=== PATIENT | female | born 1960 | race Hispanic/Latino ===

== ENCOUNTER 2019-03-09 11:32 | Inpatient (IN) | payer SELFPAY ==
[2019-03-09 12:14] LABS: #Eosinphils 0.2 thou/uL (0.0-0.7); #Lymphocytes 1.6 thou/uL (1.20-3.40); #Monocytes 0.4 thou/uL (0.11-0.59); #Neutrophils 6.5 thou/uL (1.40-6.50); %Basophils 0.4 % (0.0-1.0); %Eosinophils 2.1 % (0.0-10.0); %Lymphocytes 18.1 % (21.0-51.0); %Monocytes 4.7 % (0.0-10.0); %Neutrophils 74.8 % (42.0-75.0); Hemoglobin 10.8 g/dL (12.0-16.0); Mean Corpuscular HGB CONC 33.2 g/dL (32.0-36.0); Mean Corpuscular Volume 96.2 fL (78.0-98.0); Mean Platelet Volume 8.9 fL (7.4-10.4); Platelet Count 150 thou/uL (130-400); RBC Distribution Width 13.1 % (11.5-14.5); Red Blood Cell (RBC) Count 3.37 mill/uL (4.20-5.40); White Blood Cell (WBC) Count 8.7 thou/uL (4.8-10.8)
--- NOTE | 2019-03-09 12:17 | RAD ---
XR Chest 1 View Portable History: Chest pain Comparison: Radiograph June 24, 2018 Findings: Heart size is similar. Dialysis catheter tip in the cavoatrial junction. Likely small effus ions. Low-grade pulmonary venous congestion. No acute osseous abnormality. Impression: Pulmonary venous congestion and likely small effusions suggesting volume overload.
[2019-03-09 12:42] LABS: ALT (SGPT) 11 U/L (8-55); AST (SGOT) 13 U/L (5-34); Albumin 4.1 g/dL (3.5-5.0); Alkaline Phosphatase 177 U/L (40-150); Anion Gap 16 mmol/L (10-20); BUN (Urea Nitrogen) 62 mg/dL (9.8-20.1); Bilirubin, Total 0.3 mg/dL (0.2-1.2); CK (CPK) 187 U/L (29-168); Calc. Creatinine Clearance 0 mL/min (70-130); Carbon Dioxide 15 mmol/L (22-29); Chloride 117 mmol/L (98-107); Estimated GFR-MDRD 15; Globulin 2.9 g/dL (2.4-3.5); Glucose 85 mg/dL (70-105); Lipase 45 U/L (8-78); Potassium 5.7 mmol/L (3.5-5.1); Sodium 142 mmol/L (136-145)
[2019-03-09] MEDS ORDERED: Aspirin Chewable 81 MG TAB ONE (12:50)
[2019-03-09] MEDS ORDERED: hydrALAZINE 20 MG/ML VIAL SLOW IVP PRN (13:58)
[2019-03-09] MEDS ORDERED: Diabetic Tussin 200 MG/10 ML UDCUP PO PRN (13:58)
[2019-03-09] MEDS ORDERED: Bisacodyl 5 MG TAB PO PRN ×2 (13:58)
[2019-03-09] MEDS ORDERED: Benzonatate 100 MG CAP PO PRN (13:58)
[2019-03-09] MEDS ORDERED: Ondansetron PF 4 MG/2 ML Vial IVP PRN ×2 (13:58)
[2019-03-09] MEDS ORDERED: Calcium Carbonate 500 MG ChewTAB PO PRN ×2 (13:58)
[2019-03-09] MEDS ORDERED: Acetaminophen 325 MG TAB PO PRN (13:58)
[2019-03-09] MEDS ORDERED: cloNIDine 0.1 MG TAB PO PRN (13:58)
[2019-03-09] MEDS ORDERED: Senokot S 8.6-50 MG TAB PO PRN ×2 (13:58)
[2019-03-09] MEDS ORDERED: Sodium Chloride 0.65% Nasal 44 ML BOT EA NARE PRN (13:58)
[2019-03-09] MEDS ORDERED: Nitroglycerin 0.4 MG TAB (25 Tab Bottle) SL PRN (13:58)
[2019-03-09] MEDS ORDERED: Furosemide 100 MG/10 ML VIAL SLOW IVP SCH (16:15)
--- NOTE | 2019-03-09 17:01 | CON ---
DATE OF CONSULTATION: HISTORY OF PRESENT ILLNESS: Ms. Salazar is a 59-year-old female , who was admitted for chest pain. During the initial workup, she was noted to be having chronic renal failure with a cuffed hemodialysis catheter still in place. She has not received any dialysis except more than a year ago when she was admitted in [place] and had an acute dialysis for two treatments. The catheter has never been removed. We are now being consulted for her chronic renal failure. REVIEW OF SYSTEMS: Positive for chest pain. Positive for mild shortness of breath. No nausea. No vomiting. Appetite and energy level are fair. No syncopal episode. No productive cough. No fever or chills. No headache. No diplopia. No sore throat. No abdominal pain. No gross hematuria. No dysuria. No urinary frequency. MEDICATIONS: The patient is currently on acetaminophen 650 mg q.4 p.r.n., benzonatate 100 mg tab q.6 p.r.n., clonidine 0.1 mg q.4 p.r.n., Dulcolax 10 mg daily p.r.n., famotidine 20 mg tab q.p.m., heparin 5000 units subcu b.i.d., p.r.n. hydralazine, and Kayexalate 30 g x1 dose. PAST MEDICAL HISTORY: 1. Status post acute kidney injury-superimposed ATN? 2. Chronic renal failure, most likely from a presumptive diabetic nephropathy. 3. Status post salmonella infection? Hypertension, diabetes mellitus, no medications noted, rheumatoid arthritis, COPD. PAST SURGICAL HISTORY: Status post cuffed hemodialysis catheter placement, status post transection. ALLERGIES: CODEINE AND SEA FOOD. TRAUMA: None. IMMUNIZATION: Not up to date. HOSPITALIZATIONS: Please see past medical history. SOCIAL HISTORY: The patient is , 2 children. 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 No alcohol. 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 No IV drug abuse. Education, high school. No blood transfusion. FAMILY HISTORY: Positive family history of ESRD, one child on dialysis. PHYSICAL EXAMINATION: VITAL SIGNS: Blood pressure is 140/70, heart rate 70. GENERAL: Noted to be awake, alert, comfortable, obese, not in distress. SKIN: Adequate turgor. HEENT: She has pinkish conjunctivae. Anicteric sclerae. NECK: No neck mass. No carotid bruits. No JVD. CHEST: No deformities. LUNGS: Clear breath sounds. HEART: Normal sinus rhythm. No murmur. No gallops. No rubs. ABDOMEN: Globular, soft, nontender. No masses. EXTREMITIES: No edema. No deformities. She has a right IJ dialysis catheter. NEUROLOGIC: Moving all extremities. No tremors. No asterixis. No ataxia. Oriented to 3 spheres. LABORATORIES: On March 09, 2019, white count 8.7, hemoglobin 10.8. Sodium 142, potassium 5.7, chloride 117, carbon dioxide 15, BUN 62, creatinine 3.12, GFR 15 mL/minute. AST 13, ALT 11. CK is 187, albumin 4.1. Troponin I 0.017. Check x-ray shows increased lung markings. ASSESSMENT: 1. Chronic renal failure-GFR is noted currently at 15 mL/minute. Creatinine is noted 3.12. This is actually better than last year, June 24, 2018, which was 3.24. With her longstanding history of diabetes mellitus, consider the possibility of diabetic nephropathy. Will be reviewing urinalysis and renal ultrasound with this patient. Depending what the GFR will be in the next few days, we either place her back on dialysis and/or remove dialysis catheter and wait for a few more months before initiating dialysis. There is no indication for any emergent hemodialysis with this patient today. Agree to hold off lisinopril/hctz. 2. Type 2 diabetes mellitus, currently on diet. However, due to financial reasons, this patient is not taking any anti-diabetic regimen. 3. Hypertension-continue BP medications as needed. PLAN: 1. Check urinalysis and renal ultrasound today. 2. Overall agree with current management. Job ID: [id number] [facility]
--- NOTE | 2019-03-09 17:03 | HP ---
PRIMARY CARE PHYSICIAN: None. CHIEF COMPLAINT: Chest pain, shortness of breath. HISTORY OF PRESENTING ILLNESS: Ms. Jack is a 59-year-old female with past medical history of chronic kidney disease; diabetes; COPD; GERD; hypertension; arthritis; likely rheumatoid; who presented to the emergency room with the above-mentioned complaint. History is mainly obtained by the patient herself, who is a rather poor historian. Ms. Jack presented to the ER with one week complaints of chest pain, right arm pain, difficulty breathing, dizziness. She denies any sick contacts. She denies any recent falls. No fever or chills. Mild cough. She reports that she has COPD and uses inhalers at home without any benefit. In the emergency room, she was saturating 97% on room air with a blood pressure of 146/71. She was found to have a dialysis port on the right subclavian. When asked about it, she said that it was put in last May in [place] by a audio visual director, named Dr. Bates. She was supposed to start dialysis if needed, but she was lost to follow up because of insurance issues. She never was able to make appointment with Nephrology as she was uninsured. Since then, she has this port and it is causing her a great deal of discomfort. She has been having on and off sharp chest pain that comes and goes. She describes it as pretty intense, 8/10 in intensity, located all over the chest, but mainly in the center behind the sternum. She has been having worsening shortness of breath and mild nonproductive cough without fever. Her workup in the emergency room so far included a chest x-ray, which showed mild pulmonary vascular congestion, but most dramatic is her worsening renal failure with potassium of 5.7, BUN 62, creatinine 3.12, with estimated GFR of 15. Cardiac enzymes are unremarkable. EKG is unremarkable. She is now being admitted for further evaluation and care. No clear diagnosis is apparent at this time, but most likely the patient has some mild fluid overload as well as COPD exacerbation. When asked why was she admitted at [facility] last year when she got the dialysis port placed: The patient reports that she had "salmonella infection" that "affected her kidneys and heart." She was given aspirin in the emergency room. PAST MEDICAL HISTORY: 1. COPD. 2. Diabetes type 2 with neuropathy. 3. GERD. 4. Chronic kidney disease, stage 4. 5. Hypertension. 6. Rheumatoid arthritis. PAST SURGICAL HISTORY: 1. Dialysis port placement. 2. section x2. PSYCHIATRIC HISTORY: Depression and anxiety. SOCIAL HISTORY: She is and lives with her . She smokes a pack per day. No history of alcohol or drug abuse. FAMILY HISTORY: Significant for diabetes in multiple family members. No coronary artery disease. REVIEW OF SYSTEMS: A 14-point review of systems is done and is negative except for those mentioned in the history and physical. LABORATORY DATA: CBC shows hemoglobin of 10.8, otherwise unremarkable. Serum chemistry showed potassium of 5.7, chloride 117, bicarb 15, BUN 62, creatinine 3.12, alkaline phosphatase 177, creatine kinase 187. Lipase and troponin are normal. Chest x-ray by my review has no evidence of pleural effusion. She does have pulmonary vascular congestion. A 12-lead EKG by my review shows normal sinus rhythm at 93 beats per minute with no acute ST or T-wave changes. PHYSICAL EXAMINATION: VITAL SIGNS: Upon presentation; blood pressure 146/71, pulse of 79, respirations 18, temperature 98.8, saturating 97% on room air. GENERAL: No acute distress. Awake, alert, and oriented x3. HEENT: Mucous membrane is moist and pink. No oropharyngeal exudate or erythema. Head is normocephalic and atraumatic. Pupils are equally reactive to light and accommodation. Extraocular movement intact. NECK: Supple without any lymphadenopathy, JVD, or bruit. CHEST: Clear to auscultation without any wheezing, rales, or rhonchi. She has a port implanted in the right upper chest without any obvious erythema, tenderness, or discharge. She has bilateral wheezes and loud rhonchi and crackles bilaterally. HEART: Rate and rhythm are regular without any murmurs or gallops. ABDOMEN: Obese, soft, nontender, nondistended with positive bowel sounds. EXTREMITIES: Free of any cyanosis, clubbing, or edema. NEUROLOGIC: Nonfocal. SKIN: Free of any rashes or bruises. Feels warm and dry to touch. PSYCHIATRIC: Normal affect. IMPRESSION AND PLAN: 1. Acute on chronic kidney disease and hyperkalemia secondary to that. I have discussed the case with Dr. Owusu, who is on-call for Nephrology. For now, we will give her one dose of Kayexalate. The patient needs to establish care at a chronic kidney disease center and get monitored in case she needs to get dialysis started. Avoid any nephrotoxic medications. 2. Dyspnea. The patient seems to be having chronic obstructive pulmonary disease exacerbation as well as pulmonary edema from worsening renal failure. She also reported that Salmonella has affected her heart. We will give her one big dose of Lasix to see if she can be diuresed, and obtain a transthoracic echocardiogram. Serial cardiac enzymes will be ordered. We will also put her on scheduled and p.r.n. nebulizer along with IV steroids for chronic obstructive pulmonary disease exacerbation and empiric antibiotics, namely oral levofloxacin renally dosed for possible chronic obstructive pulmonary disease exacerbation. She is not requiring oxygen at this time. 3. Chest pain. The patient has this indwelling catheter in her right upper chest. We will rule out deep venous thrombosis in the subclavian and IJ as well as the right upper extremity by Doppler ultrasound. The port would need to be discontinued. We will obtain blood cultures from the port and then request Dr. Owusu to evaluate if this port can be removed. 4. History of gastroesophageal reflux disease. We will add Pepcid b.i.d. and Tums p.r.n. 5. Deep venous thrombosis and gastrointestinal prophylaxis with subcu heparin b.i.d. renally dosed. 6. History of diabetes mellitus listed in the ER records. Blood sugar is 85 for now. We will monitor and add insulin if necessary. Check hemoglobin A1c. 7. History of hypertension, currently controlled. We will reconcile her home medications. List is not available at this time. DISPOSITION: Ms. Jack is quite complicated with multiple nonspecific presenting complaints. I feel that most of her symptoms are coming from worsening renal failure. Sepsis also can be playing a part as the patient has this indwelling catheter in her chest for almost one year. Workup as above. I have discussed the case with Dr. Owusu, on-call for Nephrology. Symptomatic and supportive care will be started and she will be admitted to telemetry unit. Estimated length of stay at this time is at least 2 to 3 midnights. Further management will depend upon her clinical course. Job ID: [id number]
--- NOTE | 2019-03-09 17:06 | ULT ---
Venous duplex sonogram right upper extremity HISTORY: Right arm pain and edema. FINDINGS: The right internal jugular vein and subclavian vein were evaluated along with the axillary, brachial, cephalic, and basilic veins. Good color and spectral Doppler flow. Compression and augmentation where appropriate. IMPRESSION: No sonographic evidence of DVT within either lower extremity.
[2019-03-09 17:23] VITALS: BMI 36.0
[2019-03-09] MEDS: methylPREDNISolone Sod Succ/PF 125 MG/2 ML VIAL IVP SCH (18:02)
[2019-03-09] MEDS: Heparin 5,000 UNITS/ML VIAL SC SCH (21:56)
[2019-03-09] MEDS: Famotidine 20 MG TAB PO SCH (21:56)
[2019-03-09] MEDS: guaiFENesin ER 600 MG TAB PO SCH (21:56)
[2019-03-10] MEDS: methylPREDNISolone Sod Succ/PF 125 MG/2 ML VIAL IVP SCH ×4 (00:21→18:01)
[2019-03-10 06:47] LABS: Bilirubin Negative (Negative); Blood, Urine Negative (Negative); Clarity CLEAR (Clear); Glucose, Urine (Dipstick) Negative (Negative); Leukocyte Negative (Negative); Nitrite Negative (Negative); Protein, Urine (Dipstick) 30 mg/dL (Neg-Trace); Specific Gravity, Urine 1.011 (1.002-1.036); Urobilinogen 0.2 mg/dL (0.2-1.0)
[2019-03-10 06:50] LABS: Bacteria/HPF None Seen HPF (None Seen); Hyaline Casts/LPF 0-3 HYALINE CAST LPF (0-3 Hyaline); RBC/HPF 0-3 HPF (0-3); Squamous Epithelial 0-3 HPF (0-3); WBC/HPF None Seen HPF (0-3)
[2019-03-10 07:21] LABS: #Lymphocytes 0.6 thou/uL (1.20-3.40); #Neutrophils 5.8 thou/uL (1.40-6.50); %Basophils 0.8 % (0.0-1.0); %Eosinophils 0.3 % (0.0-10.0); %Monocytes 0.7 % (0.0-10.0); %Neutrophils 89.3 % (42.0-75.0); Hemoglobin 10.2 g/dL (12.0-16.0); Mean Corpuscular HGB CONC 33.3 g/dL (32.0-36.0); Mean Corpuscular Hemoglobin 31.6 pg (27.0-31.0); Mean Corpuscular Volume 94.8 fL (78.0-98.0); Platelet Count 139 thou/uL (130-400); RBC Distribution Width 13.1 % (11.5-14.5); Red Blood Cell (RBC) Count 3.23 mill/uL (4.20-5.40); White Blood Cell (WBC) Count 6.5 thou/uL (4.8-10.8)
[2019-03-10 07:34] LABS: Anion Gap 17 mmol/L (10-20); BUN (Urea Nitrogen) 65 mg/dL (9.8-20.1); Calc. Creatinine Clearance 33 mL/min (70-130); Calcium 9.3 mg/dL (7.8-10.44); Carbon Dioxide 14 mmol/L (22-29); Chloride 114 mmol/L (98-107); Estimated GFR-MDRD 18; Glucose 199 mg/dL (70-105); Potassium 5.1 mmol/L (3.5-5.1); Sodium 140 mmol/L (136-145)
--- NOTE | 2019-03-10 07:50 | ULT ---
ULTRASOUND RENAL: DATE: 03/10/2019 HISTORY: Acute on chronic renal failure FINDINGS: Right kidney: 9.5 x 5.5 x 5 cm. Left kidney:10.5 x 5 x 5.5 cm. No hydronephrosis bilaterally. No large solid or cystic renal mass identified. Enlarged prostate gland encroaches upon bladder base. Otherwise unremarkable bladder. Renal parenchymal echogenicity diffusely increased, suggestive of medical renal disease. IMPRESSION: 1. Increased renal parenchymal echogenicity: Evidence for medical renal disease. 2. No hydronephrosis.
[2019-03-10 07:55] LABS: Hemoglobin A1c 5.3 % (4.0-6.0)
--- NOTE | 2019-03-10 09:51 | PRG ---
DATE OF SERVICE: 03/10/2019 SUBJECTIVE: Ms. Salazar is a 59-year-old female with chronic renal failure from presumed diabetic nephropathy and admitted for chest pain. Currently, she is asymptomatic. She was also noted to be mildly hyperkalemic and she received Lasix as well as Kayexalate. Chest x-ray did show increased lung markings. Please note that, the initial creatinine was noted at 3.12. She is currently improved at a value of 2.78. She is off her lisinopril/hydrochlorothiazide. No new complaints today. She is requesting to have the hemodialysis catheter pulled out. No complaints of chest pain or shortness of breath. OBJECTIVE: VITAL SIGNS: Blood pressure 131/61, heart rate 85, respiratory rate 20, temperature 97.6, and pulse ox 94%. GENERAL: Noted to be awake, alert, comfortable, not in distress. SKIN: Adequate turgor. HEENT: She has slightly pale conjunctivae. Anicteric sclerae. NECK: No neck mass. No carotid bruits. No JVD. CHEST: No deformities. LUNGS: Clear breath sounds. No wheezing. No crackles. HEART: Normal sinus rhythm. No murmurs. No gallops. No rubs. ABDOMEN: Globular, soft, and nontender. No masses. EXTREMITIES: No edema. No deformities. MEDICATIONS: Medications of March 10, 2019, reviewed. LABORATORY DATA: Laboratories of March 10, 2019: White count 6.5, hemoglobin 10.2. Sodium 140, potassium 5.1, chloride 114, carbon dioxide 14, BUN 65, creatinine 2.78, and calcium 9.3. Hemoglobin A1c is 5.3. Urinalysis shows protein of 30, no red cells, no white cells. Renal ultrasound, increased echogenicity. ASSESSMENT AND PLAN: 1. Acute kidney injury on top of her chronic renal failure, superimposed prerenal azotemia. This is most likely drug-induced. Lisinopril/hydrochlorothiazide has been discontinued. Continue supportive care. No indication for any dialytic intervention. We will have the dialysis catheter pulled out. She is currently at stage 4 chronic renal failure. 2. Borderline anemia. We will simply observe this. 3. Mild hyperkalemia, resolved. 4. We will recheck phosphorus and PTH tomorrow. Basic metabolic, CBC will also be checked. Job ID: [id number]
[2019-03-10] MEDS: guaiFENesin ER 600 MG TAB PO SCH ×2 (10:39→19:46)
[2019-03-10] MEDS: Heparin 5,000 UNITS/ML VIAL SC SCH ×2 (10:40→19:46)
--- NOTE | 2019-03-10 11:32 | PDOC.PN ---
- Subjective Encounter Start Date: 03/10/19 Encounter Start Time: 10:00 Subjective: breathing better, no chest pain - Objective MAR Reviewed: Yes Vital Signs & Weight: Vital Signs (12 hours) Temp Pulse Resp BP Pulse Ox 03/10/19 08:10 98.1 F 86 18 145/69 H 95 03/10/19 03:15 97.6 F 85 20 131/61 94 L 03/10/19 00:05 97.6 F 80 21 H 133/58 L 93 L 03/09/19 23:34 71 20 95 Weight Weight 210 lb 1.608 oz I&O: 03/09/19 03/10/19 03/11/19 06:59 06:59 06:59 Intake Total 470 Output Total 2500 Balance -2029 Result Diagrams: 03/10/19 07:03 03/10/19 07:03 Additional Labs: Accuchecks 03/10/19 03/09/19 05:50 20:53 POC Glucose 227 H 269 H Phys Exam - Physical Examination HEENT: PERRLA, moist MMs Neck: no JVD, supple Respiratory: no rales, wheezing present Cardiovascular: RRR, no significant murmur Gastrointestinal: soft, non-tender, positive bowel sounds Musculoskeletal: no edema, pulses present Neurological: non-focal, moves all 4 limbs Psychiatric: normal affect, A&O x 3 Dx/Plan (1) COPD exacerbation Code(s): J44.1 - CHRONIC OBSTRUCTIVE PULMONARY DISEASE W (ACUTE) EXACERBATION Status: Acute (2) Acute on chronic renal failure Code(s): N17.9 - ACUTE KIDNEY FAILURE, UNSPECIFIED; N18.9 - CHRONIC KIDNEY DISEASE, UNSPECIFIED Status: Acute Qualifiers: Acute renal failure type: unspecified Chronic kidney disease stage: stage 4 (severe) Qualified Code(s): N17.9 - Acute kidney failure, unspecified; N18.4 - Chronic kidney disease, stage 4 (severe) (3) HTN (hypertension) Code(s): I10 - ESSENTIAL (PRIMARY) HYPERTENSION Status: Chronic Qualifiers: Hypertension type: essential hypertension Qualified Code(s): I10 - Essential (primary) hypertension (4) Obesity (BMI 30-39.9) Code(s): E66.9 - OBESITY, UNSPECIFIED Status: Chronic (5) Metabolic acidosis Code(s): E87.2 - ACIDOSIS Status: Acute (6) GERD (gastroesophageal reflux disease) Code(s): K21.9 - GASTRO-ESOPHAGEAL REFLUX DISEASE WITHOUT ESOPHAGITIS Status: Chronic Qualifiers: Esophagitis presence: esophagitis presence not specified Qualified Code(s) : K21.9 - Gastro-esophageal reflux disease without esophagitis (7) DM type 2 (diabetes mellitus, type 2) Status: Chronic Qualifiers: Diabetes mellitus termite technician insulin use: without termite technician use Diabetes mellitus complication status: with kidney complications Diabetes mellitus complication detail: with chronic kidney disease Chronic kidney disease stage : stage 4 (severe) Qualified Code(s): E11.22 - Type 2 diabetes mellitus with diabetic chronic kidney disease; N18.4 - Chronic kidney disease, stage 4 (severe ) - Plan gentle iv hydration -: creatinine was around 2.5 in sep 2018, likely her baseline -: levaquin, nebs, steroids, glipizide -: hemostable -: tx to medical floor, will have her HD cath removed by surg * . Review of Systems - Medications/Allergies Allergies/Adverse Reactions: Allergies Allergy/AdvReac Type Severity Reaction Status Date / Time codeine Allergy Intermediate Verified 03/09/19 21:55 shellfish derived Allergy Verified 03/09/19 18:37 Medications: Current Medications Acetaminophen (Tylenol) 650 mg PO Q4H PRN PRN Reason: Headache/Fever/Mild Pain (1-3) Albuterol/Ipratropium (Duoneb) 3 ml NEB [id number] PRN PRN Reason: SOB &/or Wheezing Albuterol/Ipratropium (Duoneb) 3 ml NEB [id number] [facility] Last Admin: 03/10/19 07:26 Dose: Not Given Benzonatate (Tessalon) 100 mg PO Q6H PRN PRN Reason: Cough Bisacodyl (Dulcolax) 10 mg PO DAILYPRN PRN PRN Reason: Constipation Calcium Carbonate (Tums) 1,000 mg PO Q4H PRN PRN Reason: Heartburn or Indigestion Clonidine (Catapres) 0.1 mg PO Q4H PRN PRN Reason: SBP > 160____ Famotidine (Pepcid) 20 mg PO QPM [facility] Last Admin: 03/09/19 21:56 Dose: 20 mg Guaifenesin (Robitussin Sf) 200 mg PO Q4H PRN PRN Reason: Cough Last Admin: 03/10/19 05:54 Dose: 200 mg Guaifenesin (Mucinex) 1,200 mg PO Q12HR [facility] Last Admin: 03/10/19 10:39 Dose: 1,200 mg Heparin Sodium (Porcine) (Heparin) 5,000 units SC BID [facility] Last Admin: 03/10/19 10:40 Dose: 5,000 units Hydralazine HCl (Apresoline) 10 mg SLOW IVP Q4H PRN PRN Reason: SBP > 180 and HR < 70 Levofloxacin (Levaquin) 500 mg PO Q48H [facility] Methylprednisolone Sodium Succinate (Solu-Medrol) 40 mg IVP Q6HR [facility] Last Admin: 03/10/19 05:55 Dose: 40 mg Nitroglycerin (Nitrostat) 0.4 mg SL Q5MIN PRN PRN Reason: Chest Pain Ondansetron HCl (Zofran) 4 mg IVP Q6H PRN PRN Reason: Nausea/Vomiting Senna/Docusate Sodium (Senokot S) 2 tab PO BID PRN PRN Reason: Constipation Sodium Bicarbonate (Bicarbonate, Sodium) 650 mg PO TID [facility] Sodium Chloride ([place] Nasal [place] 0.65%) 0 ml EA NARE QIDPRN PRN PRN Reason: Nasal Congestion
[2019-03-10] MEDS ORDERED: Lidocaine 1% (PF) 30 ML VIAL SC SCH (12:45)
[2019-03-10] MEDS: Sodium Bicarbonate Tab 325 MG TAB PO SCH ×2 (16:24→19:46)
[2019-03-10] MEDS: Famotidine 20 MG TAB PO SCH (19:46)
[2019-03-11] MEDS: methylPREDNISolone Sod Succ/PF 125 MG/2 ML VIAL IVP SCH ×2 (00:03→05:18)
[2019-03-11 04:57] LABS: #Lymphocytes 0.5 thou/uL (1.20-3.40); #Monocytes 0.1 thou/uL (0.11-0.59); #Neutrophils 9.8 thou/uL (1.40-6.50); %Basophils 0.4 % (0.0-1.0); %Eosinophils 0.1 % (0.0-10.0); %Monocytes 1.1 % (0.0-10.0); %Neutrophils 93.4 % (42.0-75.0); Hemoglobin 9.9 g/dL (12.0-16.0); Mean Corpuscular HGB CONC 33.7 g/dL (32.0-36.0); Mean Corpuscular Hemoglobin 31.9 pg (27.0-31.0); Mean Corpuscular Volume 94.5 fL (78.0-98.0); Mean Platelet Volume 9.1 fL (7.4-10.4); Platelet Count 143 thou/uL (130-400); Red Blood Cell (RBC) Count 3.09 mill/uL (4.20-5.40); White Blood Cell (WBC) Count 10.5 thou/uL (4.8-10.8)
[2019-03-11 05:19] LABS: Anion Gap 16 mmol/L (10-20); BUN (Urea Nitrogen) 76 mg/dL (9.8-20.1); Calc. Creatinine Clearance 31 mL/min (70-130); Calcium 8.8 mg/dL (7.8-10.44); Carbon Dioxide 17 mmol/L (22-29); Chloride 110 mmol/L (98-107); Estimated GFR-MDRD 16; Glucose 288 mg/dL (70-105); Phosphorus 3.9 mg/dL (2.3-4.7); Potassium 4.7 mmol/L (3.5-5.1); Sodium 138 mmol/L (136-145)
[2019-03-11] MEDS: Sodium Bicarbonate Tab 325 MG TAB PO SCH ×3 (08:24→21:44)
[2019-03-11] MEDS: guaiFENesin ER 600 MG TAB PO SCH ×2 (08:24→21:44)
[2019-03-11] MEDS: Heparin 5,000 UNITS/ML VIAL SC SCH ×2 (08:24→21:44)
[2019-03-11] MEDS: predniSONE 20 MG TAB PO SCH (08:25)
--- NOTE | 2019-03-11 08:55 | OP ---
DATE OF PROCEDURE: 03/10/2019 PREOPERATIVE DIAGNOSES: 1. History of chronic renal disease. 2. Suspected infected hemodialysis catheter. POSTOPERATIVE DIAGNOSES: 1. History of chronic renal disease. 2. Suspected infected hemodialysis catheter. PROCEDURE PERFORMED: Excision of HemoSplit hemodialysis catheter. DESCRIPTION OF PROCEDURE: Informed consent was obtained from the patient, she was placed in supine position. The right chest wall widely sterilely prepped and draped in usual fashion. I identified the position of the cuff, which was approximately 3 cm above the catheter exit. The skin over this was then infiltrated with 1% lidocaine. A 0.5 cm transverse incision was made over the cuff. This was achieved using 15 scalpel. The cuff was dissected free from surrounding structures. The proximal end of the catheter was withdrawn from the vein, and pressure was held to achieve hemostasis. The catheter tip was amputated and passed off for microbiology. The remainder of the cuff was dissected free from surrounding structures. The catheter was then divided just distal to the cuff, and the distal end of the catheter was pulled out through the skin. Omental catheter was removed from the wound. The sutures were approximated using interrupted sutures of 4-0 Vicryl. Skin was closed using 4-0 Vicryl suture in subcuticular fashion. Dressing was applied over the incisional closure on the previous catheter exit site. The patient tolerated the procedure without any apparent complication and remains hemodynamically stable following completion of the procedure. Job ID: [id number] [facility]
--- NOTE | 2019-03-11 09:59 | PRG ---
DATE OF SERVICE: 03/11/2019 SUBJECTIVE: Ms. De Dios is a 59-year-old female, who was seen by Renal Service for her chronic renal failure. Creatinine is relatively stable, although it is slightly higher when compared to yesterday. The dialysis catheter has been pulled out per the patient's request. It has been there for about a year. Currently, she is off her ANGELA inhibitors. The patient voices no new complaints. No chest pain or shortness of breath. OBJECTIVE: VITAL SIGNS: Blood pressure is 126/77, heart rate 95, respiratory rate 16, temperature 97.8, and pulse ox 94%. GENERAL: She is awake, alert, comfortable, not in distress. Obese. SKIN: Adequate turgor. HEENT: She has a slightly pale conjunctivae. Anicteric sclerae. NECK: No neck mass. No carotid bruits. No JVD. CHEST: No deformities. LUNGS: Clear breath sounds. HEART: Normal sinus rhythm. No murmurs. No gallops. No rubs. ABDOMEN: Globular, soft, and nontender. No masses. EXTREMITIES: No edema. No deformities. MEDICATIONS: Medications of March 11, 2019, were reviewed. LABORATORY DATA: Laboratories of March 11, 2019: Sodium 138, potassium 4.7, chloride 110, carbon dioxide 17, BUN 76, creatinine 3.02, glucose 288, calcium 8.8. PTH is 288. Hemoglobin 9.9. ASSESSMENT AND PLAN: 1. Chronic renal failure, secondary to presumed diabetic nephropathy, slightly higher creatinine. This could be a reflection of the previous diuretic regimen. There is no indication for any dialytic intervention with this patient. Continue supportive care. 2. Metabolic acidosis, improving. Continuing sodium bicarbonate. 3. Secondary hyperparathyroidism. Start calcitriol 0.25 mcg tablet daily. From a renal point of view, this patient can be discharged and I will follow up with her at the [facility]. Job ID: [id number]
[2019-03-11] MEDS ORDERED: Calcitriol 0.25 MCG CAP PO SCH (10:00)
--- NOTE | 2019-03-11 12:38 | PDOC.PN ---
- Subjective Encounter Start Date: 03/11/19 Encounter Start Time: 12:00 Subjective: breathing better, no sob -: is ambulating in room - Objective MAR Reviewed: Yes Vital Signs & Weight: Vital Signs (12 hours) Temp Pulse Resp BP BP Pulse Ox 03/11/19 12:18 97.5 F L 84 14 130/81 97 03/11/19 08:00 97.8 F 95 16 126/77 94 L 03/11/19 06:49 81 16 95 03/11/19 04:00 97.8 F 81 18 138/84 95 03/11/19 01:13 96 03/11/19 00:59 76 12 95 Weight Admit Weight 210 lb 1.608 oz Weight 210 lb 1.608 oz I&O: 03/10/19 03/11/19 03/12/19 06:59 06:59 06:59 Intake Total 470 480 360 Output Total 2500 Balance -2030 480 360 Result Diagrams: 03/11/19 04:17 03/11/19 04:17 Phys Exam - Physical Examination HEENT: PERRLA, moist MMs Neck: no JVD, supple Respiratory: no wheezing, no rales rhonchi+ Cardiovascular: RRR, no significant murmur Gastrointestinal: soft, no distention, positive bowel sounds Musculoskeletal: no edema, pulses present Neurological: non-focal, moves all 4 limbs Psychiatric: normal affect, A&O x 3 Dx/Plan (1) COPD exacerbation Code(s): J44.1 - CHRONIC OBSTRUCTIVE PULMONARY DISEASE W (ACUTE) EXACERBATION Status: Acute (2) Acute on chronic renal failure Code(s): N17.9 - ACUTE KIDNEY FAILURE, UNSPECIFIED; N18.9 - CHRONIC KIDNEY DISEASE, UNSPECIFIED Status: Acute Qualifiers: Acute renal failure type: unspecified Chronic kidney disease stage: stage 4 (severe) Qualified Code(s): N17.9 - Acute kidney failure, unspecified; N18.4 - Chronic kidney disease, stage 4 (severe) (3) HTN (hypertension) Code(s): I10 - ESSENTIAL (PRIMARY) HYPERTENSION Status: Chronic Qualifiers: Hypertension type: essential hypertension Qualified Code(s): I10 - Essential (primary) hypertension (4) Obesity (BMI 30-39.9) Code(s): E66.9 - OBESITY, UNSPECIFIED Status: Chronic (5) Metabolic acidosis Code(s): E87.2 - ACIDOSIS Status: Acute (6) GERD (gastroesophageal reflux disease) Code(s): K21.9 - GASTRO-ESOPHAGEAL REFLUX DISEASE WITHOUT ESOPHAGITIS Status: Chronic Qualifiers: Esophagitis presence: esophagitis presence not specified Qualified Code(s) : K21.9 - Gastro-esophageal reflux disease without esophagitis (7) DM type 2 (diabetes mellitus, type 2) Status: Chronic Qualifiers: Diabetes mellitus terminal superintendent insulin use: without terminal superintendent use Diabetes mellitus complication status: with kidney complications Diabetes mellitus complication detail: with chronic kidney disease Chronic kidney disease stage : stage 4 (severe) Qualified Code(s): E11.22 - Type 2 diabetes mellitus with diabetic chronic kidney disease; N18.4 - Chronic kidney disease, stage 4 (severe ) - Plan hemostable -: continue levaquin, steroids, nebs -: right infraclavicular HD cath is removed now -: creatinine slightly up likely due to steroids -: to ambulate in [place], dc plan in am * . Review of Systems - Medications/Allergies Allergies/Adverse Reactions: Allergies Allergy/AdvReac Type Severity Reaction Status Date / Time codeine Allergy Intermediate Verified 03/09/19 21:55 shellfish derived Allergy Verified 03/09/19 18:37 Medications: Current Medications Acetaminophen (Tylenol) 650 mg PO Q4H PRN PRN Reason: Headache/Fever/Mild Pain (1-3) Last Admin: 03/10/19 19:46 Dose: 650 mg Albuterol/Ipratropium (Duoneb) 3 ml NEB [id number] PRN PRN Reason: SOB &/or Wheezing Albuterol/Ipratropium (Duoneb) 3 ml NEB [id number] ARETHA Last Admin: 03/11/19 06:49 Dose: 3 ml Benzonatate (Tessalon) 100 mg PO Q6H PRN PRN Reason: Cough Bisacodyl (Dulcolax) 10 mg PO DAILYPRN PRN PRN Reason: Constipation Calcitriol (Rocaltrol) 0.25 mcg PO DAILY ARETHA Calcium Carbonate (Tums) 1,000 mg PO Q4H PRN PRN Reason: Heartburn or Indigestion Clonidine (Catapres) 0.1 mg PO Q4H PRN PRN Reason: SBP > 160____ Famotidine (Pepcid) 20 mg PO QPM PENDING SALE TO [facility] Last Admin: 03/10/19 19:46 Dose: 20 mg Guaifenesin (Robitussin Sf) 200 mg PO Q4H PRN PRN Reason: Cough Last Admin: 03/10/19 05:54 Dose: 200 mg Guaifenesin (Mucinex) 1,200 mg PO Q12HR PENDING SALE TO [facility] Last Admin: 03/11/19 08:24 Dose: 1,200 mg Heparin Sodium (Porcine) (Heparin) 5,000 units SC BID PENDING SALE TO [facility] Last Admin: 03/11/19 08:24 Dose: 5,000 units Hydralazine HCl (Apresoline) 10 mg SLOW IVP Q4H PRN PRN Reason: SBP > 180 and HR < 70 Levofloxacin (Levaquin) 500 mg PO Q48H PENDING SALE TO [facility] Nitroglycerin (Nitrostat) 0.4 mg SL Q5MIN PRN PRN Reason: Chest Pain Ondansetron HCl (Zofran) 4 mg IVP Q6H PRN PRN Reason: Nausea/Vomiting Prednisone (Prednisone) 20 mg PO QAM-WM PENDING SALE TO [facility] Last Admin: 03/11/19 08:25 Dose: 20 mg Senna/Docusate Sodium (Senokot S) 2 tab PO BID PRN PRN Reason: Constipation Sodium Bicarbonate (Bicarbonate, Sodium) 650 mg PO TID PENDING SALE TO [facility] Last Admin: 03/11/19 08:24 Dose: 650 mg Sodium Chloride ([place] Nasal [place] 0.65%) 0 ml EA NARE QIDPRN PRN PRN Reason: Nasal Congestion
[2019-03-11] MEDS: Famotidine 20 MG TAB PO SCH (21:44)
[2019-03-11] MEDS: Sodium Chloride 0.9% 1,000 ML IV SCH (21:51)
[2019-03-12 06:40] LABS: #Lymphocytes 1.4 thou/uL (1.20-3.40); #Monocytes 0.4 thou/uL (0.11-0.59); #Neutrophils 8.7 thou/uL (1.40-6.50); %Basophils 0.1 % (0.0-1.0); %Eosinophils 0.2 % (0.0-10.0); %Lymphocytes 13.2 % (21.0-51.0); %Monocytes 3.9 % (0.0-10.0); %Neutrophils 82.6 % (42.0-75.0); Hemoglobin 9.8 g/dL (12.0-16.0); Mean Corpuscular HGB CONC 33.1 g/dL (32.0-36.0); Mean Corpuscular Hemoglobin 31.8 pg (27.0-31.0); Mean Corpuscular Volume 96.3 fL (78.0-98.0); Mean Platelet Volume 8.6 fL (7.4-10.4); Platelet Count 146 thou/uL (130-400); RBC Distribution Width 13.2 % (11.5-14.5); Red Blood Cell (RBC) Count 3.08 mill/uL (4.20-5.40); White Blood Cell (WBC) Count 10.6 thou/uL (4.8-10.8)
[2019-03-12 07:02] LABS: Anion Gap 15 mmol/L (10-20); BUN (Urea Nitrogen) 81 mg/dL (9.8-20.1); Calc. Creatinine Clearance 28 mL/min (70-130); Calcium 8.5 mg/dL (7.8-10.44); Carbon Dioxide 18 mmol/L (22-29); Chloride 113 mmol/L (98-107); Estimated GFR-MDRD 14; Glucose 147 mg/dL (70-105); Potassium 4.5 mmol/L (3.5-5.1); Sodium 141 mmol/L (136-145)
[2019-03-12 07:49] VITALS: BP 132/80; TEMP 98
[2019-03-12] MEDS: Heparin 5,000 UNITS/ML VIAL SC SCH (08:29)
[2019-03-12] MEDS: Sodium Bicarbonate Tab 325 MG TAB PO SCH ×2 (08:29→14:17)
[2019-03-12] MEDS: guaiFENesin ER 600 MG TAB PO SCH (08:30)
[2019-03-12] MEDS: predniSONE 20 MG TAB PO SCH (08:30)
[2019-03-12] MEDS ORDERED: Calcitriol 0.25 MCG CAP PO SCH (09:00)
--- NOTE | 2019-03-12 09:26 | PRG ---
DATE OF SERVICE: 03/12/2019 SERVICE: Renal Medicine. SUBJECTIVE: Ms. Salazar is a 59-year-old white female with known history of chronic renal failure from diabetic nephropathy. During the initial admission, creatinine was noted at 3.02, this improved to 2.8. However, in the last few days, it continue to worsen. This is in spite of an overnight hydration with this patient. I did have a long discussion with this patient to initiate dialysis since the GFR has dropped down to 14 mL/minute. She is still hesitant to proceed with dialysis. She tells me she is hesitant because she had a bad experience with her son, who was on dialysis and had a kidney transplant. I did tell her that every individual is different. No complaints of chest pain or shortness of breath. OBJECTIVE: VITAL SIGNS: Blood pressure is 132/80, heart rate 102, respiratory rate 20, temperature 98, and pulse ox 96%. GENERAL: Awake, alert, comfortable, not in distress. SKIN: Adequate turgor. HEENT: She has slightly pale conjunctivae. Anicteric sclerae. NECK: No neck mass. No carotid bruits. No JVD. CHEST: No deformities. LUNGS: Clear breath sounds. HEART: Normal sinus rhythm. No murmur. No gallops. No rubs. ABDOMEN: Globular, soft, and nontender. No masses. EXTREMITIES: No edema. No deformities. MEDICATIONS: Medications of March 12, 2019, reviewed. LABORATORY DATA: Laboratories of March 12, 2019, white count 10.6, hemoglobin 9.8. Sodium 141, potassium 4.5, chloride 103, carbon dioxide 18, BUN 81, creatinine 3.31, GFR 14 mL/minute, glucose 147, and calcium 8.5. On March 11, 2019, PTH is 288. ASSESSMENT AND PLAN: 1. Anemia. Check stool cards. Start iron supplementation. 2. Chronic renal failure secondary to diabetic nephropathy, worsening renal dysfunction. Discuss dialytic intervention. The patient is declining. 3. Secondary hyperparathyroidism. Continue calcitriol at 0.25 mcg tablet daily. I would, for the moment, continue current IV fluid. If the patient is discharged today, we will follow her up at the [facility]. Job ID: [id number]
[2019-03-12] MEDS: Sodium Chloride 0.9% 1,000 ML IV SCH (10:52)
--- NOTE | 2019-03-12 13:09 | PDOC.PN ---
- Subjective Encounter Start Date: 03/12/19 Encounter Start Time: 13:08 Ms. Jack was seen today in follow-up of generalized weakness and shortness of breath. She says she feels better, and has no complaints. - Objective MAR Reviewed: Yes Vital Signs & Weight: Vital Signs (12 hours) Temp Pulse Resp BP Pulse Ox 03/12/19 12:32 92 16 91 L 03/12/19 08:00 96 03/12/19 07:45 98.0 F 102 H 20 132/80 96 03/12/19 06:53 99 16 96 Weight Admit Weight 210 lb 1.608 oz Weight 210 lb 1.608 oz I&O: 03/11/19 03/12/19 03/13/19 06:59 06:59 06:59 Intake Total 480 2505 240 Balance 480 2505 240 Result Diagrams: 03/12/19 06:10 03/12/19 06:10 Phys Exam - Physical Examination HEENT: PERRLA Respiratory: no rhonchi, wheezing present + bilateral tight wheezing Cardiovascular: RRR, no significant murmur, no rub Gastrointestinal: soft, non-tender, no distention, positive bowel sounds Musculoskeletal: no edema, pulses present Dx/Plan (1) Acute on chronic renal failure Code(s): N17.9 - ACUTE KIDNEY FAILURE, UNSPECIFIED; N18.9 - CHRONIC KIDNEY DISEASE, UNSPECIFIED Status: Acute Qualifiers: Acute renal failure type: unspecified Chronic kidney disease stage: stage 4 (severe) Qualified Code(s): N17.9 - Acute kidney failure, unspecified; N18.4 - Chronic kidney disease, stage 4 (severe) (2) COPD exacerbation Code(s): J44.1 - CHRONIC OBSTRUCTIVE PULMONARY DISEASE W (ACUTE) EXACERBATION Status: Acute (3) DM type 2 (diabetes mellitus, type 2) Status: Chronic Qualifiers: Diabetes mellitus technician terminal and repeater insulin use: without technician terminal and repeater use Diabetes mellitus complication status: with kidney complications Diabetes mellitus complication detail: with chronic kidney disease Chronic kidney disease stage : stage 4 (severe) Qualified Code(s): E11.22 - Type 2 diabetes mellitus with diabetic chronic kidney disease; N18.4 - Chronic kidney disease, stage 4 (severe ) (4) GERD (gastroesophageal reflux disease) Code(s): K21.9 - GASTRO-ESOPHAGEAL REFLUX DISEASE WITHOUT ESOPHAGITIS Status: Chronic Qualifiers: Esophagitis presence: esophagitis presence not specified Qualified Code(s) : K21.9 - Gastro-esophageal reflux disease without esophagitis (5) HTN (hypertension) Code(s): I10 - ESSENTIAL (PRIMARY) HYPERTENSION Status: Chronic Qualifiers: Hypertension type: essential hypertension Qualified Code(s): I10 - Essential (primary) hypertension (6) Obesity (BMI 30-39.9) Code(s): E66.9 - OBESITY, UNSPECIFIED Status: Chronic - Plan * Acute on chronic respiratory failure- improved * Acute kidney injury- stable. * HTN- blood pressure is stable * DM- blood glucose is stable * She has had the Hemosplit removed * stable for discharge home
[2019-03-12] MEDS ORDERED: Ferrous Sulfate 325 MG TAB PO SCH (17:00)
--- NOTE | 2019-03-13 05:34 | DIS ---
DATE OF ADMISSION: 03/09/2019 DATE OF DISCHARGE: 03/12/2019 PRIMARY CARE PHYSICIAN: Dr. Olea. DISCHARGE DISPOSITION: Home. PRIMARY DISCHARGE DIAGNOSES: 1. Acute respiratory failure due to chronic obstructive pulmonary disease exacerbation. 2. Acute on chronic kidney injury. 3. Diabetes mellitus, type 2. 4. Diabetic nephropathy. 5. Hypertension. 6. Rheumatoid arthritis. 7. Chronic kidney disease, stage 4. DISCHARGE MEDICATIONS: Include; 1. Sodium bicarbonate 650 mg p.o. t.i.d. 2. Prednisone 10 mg daily. 3. Levaquin 500 mg every other day. 4. Glipizide 10 mg daily. 5. Calcitriol 0.25 mcg p.o. daily. 6. Tessalon Perles 100 mg q.6. 7. Albuterol inhaler 1-2 puffs q.6 as needed. 8. Simvastatin 20 mg at bedtime. 9. Gabapentin 300 mg twice a day. PROCEDURES DURING THE ADMISSION: The patient had a vascular ultrasound showing no evidence of DVT in the lower extremity. The patient also had an echocardiogram in which the ejection fraction was estimated at 55% to 60%. The patient also had a renal ultrasound showing increased echogenicity of the kidney with evidence for medical renal disease and no evidence of hydronephrosis. CODE STATUS: Full code. ALLERGIES: TO CODEINE AND SHELLFISH. HOSPITAL COURSE: Ms. Salazar is a very pleasant 59-year-old female, who has a history of chronic kidney disease as well as COPD and hypertension. She presented to the emergency room complaining of shortness of breath and chest pain. She was admitted for acute respiratory failure likely due to chronic obstructive pulmonary disease exacerbation and some mild volume overload. She was also noted to have acute on chronic kidney injury. The patient also said that she was tired of having the temporary HemoSplit catheter in that had been there for quite some time. She says it is not being used and she wanted it taken out. She also believes that this had a big influence on her symptoms that she said this was making her nervous and agitated and she feels much better after it has been removed. The tip of the catheter was cultured and it was growing a gram-positive cocci and for this reason, she was discharged home on oral Levaquin. Blood cultures were negative, however. She also was discharged on a short steroid taper as well as an albuterol. Please note that the patient had been on lisinopril and hydrochlorothiazide, but this was discontinued due to the acute kidney injury. Job ID: [id number]
--- NOTE | 2019-03-13 09:38 | EKG ---
Test Reason : Blood Pressure : / mmHG Vent. Rate : 093 BPM Atrial Rate : 093 BPM P-R Int : 184 ms QRS Dur : 070 ms QT Int : 344 ms P-R-T Axes : 053 004 038 degrees QTc Int : 427 ms Normal sinus rhythm Normal ECG Confirmed by PATRICIA UMANZOR ([id number]), sound editor CINDI BRIONES ([id number]) on 03/13/2019 9:38:23 AM Referred By: Confirmed By:PATRICIA UMANZOR
== END 2019-03-12 16:40 | disposition home or self-care (01) | DRG 682 ==
LOC: ERS 11:32 → ERHOLD 13:40 → 2NO 16:44 → T4-B 03-10 15:19
PROVIDERS: ADMIT Internal Medicine; ATTEND Internal Medicine
PROC: 02PY33Z Removal of Infusion Device from Great Vessel, Percutaneous Approach (ICD-10-PCS; principal; 2019-03-12)
DX: N17.9 Acute kidney failure, unspecified (principal); J96.20 Acute and chronic respiratory failure, unspecified whether with hypoxia or hypercapnia; J44.1 Chronic obstructive pulmonary disease with (acute) exacerbation; E87.2 Acidosis; T82.7XXA Infection and inflammatory reaction due to other cardiac and vascular devices, implants and grafts, initial encounter; E11.40 Type 2 diabetes mellitus with diabetic neuropathy, unspecified; K21.9 Gastro-esophageal reflux disease without esophagitis; M06.9 Rheumatoid arthritis, unspecified; F32.9 Major depressive disorder, single episode, unspecified; F41.9 Anxiety disorder, unspecified; N18.4 Chronic kidney disease, stage 4 (severe); E66.9 Obesity, unspecified; E87.70 Fluid overload, unspecified; N25.81 Secondary hyperparathyroidism of renal origin; E11.22 Type 2 diabetes mellitus with diabetic chronic kidney disease; I12.9 Hypertensive chronic kidney disease with stage 1 through stage 4 chronic kidney disease, or unspecified chronic kidney disease; E87.5 Hyperkalemia; D63.1 Anemia in chronic kidney disease; Z68.36 Body mass index [BMI] 36.0-36.9, adult; Z88.5 Allergy status to narcotic agent; Z91.013 Allergy to seafood; Z79.899 Other long term (current) drug therapy
CPT/HCPCS: 36415; 36416; 71045; 76770; 80048; 80053; 81001; 82550; 83036; 83690; 83880; 83970; 84100; 84484; 85025; 87040; 87071; 93005; 93306; 94640; 96360; J1644; J1940; J2001; J2930; J7512; J7620

== ENCOUNTER 2019-11-06 14:50 | Observation (INO) | payer SELFPAY ==
[2019-11-06 18:50] VITALS: BMI 40.4
[2019-11-06] MEDS ORDERED: Ondansetron ODT 4 MG TAB SL PRN (18:51)
[2019-11-06] MEDS ORDERED: Ondansetron PF 4 MG/2 ML Vial IVP PRN (18:51)
[2019-11-06] MEDS ORDERED: Sodium Chloride 0.9% 1,000 ML IV SCH ×2 (18:51→21:43)
[2019-11-06] MEDS ORDERED: Acetaminophen 325 MG TAB PO PRN (18:51)
[2019-11-06] MEDS ORDERED: Dextrose 5% in Water 1,000 ML IV PRN (20:35)
[2019-11-06] MEDS ORDERED: Dextrose 50% Abboject 50 ML SYRINGE SLOW IVP PRN (20:35)
[2019-11-06] MEDS ORDERED: HumaLOG 300 UNITS/3 ML VIAL SC PRN ×2 (20:35)
[2019-11-06 21:16] LABS: Glucose POC Confirmation 662 mg/dl (70-105)
[2019-11-06] MEDS ORDERED: Insulin Regular 300 UNITS/3 ML VIAL SC SCH (21:45)
[2019-11-06] MEDS ORDERED: HumaLOG 300 UNITS/3 ML VIAL SC SCH (22:00)
--- NOTE | 2019-11-06 22:01 | PDOC.HHP ---
Hospitalist HPI - History of Present Illness swelling of neck and tongue History of Present Illness: 59yo F w/ MHx of angioedema, T2DM, chronic kidney disease; COPD; GERD; hypertension was transfered for angioedema. Started having swelling of tongue and sensation of swelling of throat earlier. Had similar episodes in the past but they were less intense and resolved shortly. This episode was more severe and didn't resolve as fast, so went to urgency center, received steroids, and was transfered to ED. On encounter, lying comfortably in bed and has no complaints. Endorses taking lisinopril even though based on recent dishcarge summary, was discontinued. Denies fever chills night sweats, dysphagia, dysarthria, facial trauma, bug bites, recent change in diet, family history of swelling. ED Course: In the ED, was treated with TXA and breathing treatments and was admitted to the floor for further observation Hospitalist ROS - Review of Systems All other systems reviewed; all pertinent +/- noted in HPI/Subj Hospitalist History - Past Medical History Source: patient (PAST MEDICAL HISTORY: 1. COPD. 2. Diabetes type 2 with neuropathy. 3. GERD. 4. Chronic kidney disease, stage 4. 5. Hypertension. 6. Rheumatoid arthritis. PAST SURGICAL HISTORY: 1. Dialysis port placement. 2. section x2. PSYCHIATRIC HISTORY: Depression and anxiety. SOCIAL HISTORY : She is and lives with her . She smokes a pack per day. No history of alcohol or drug abuse. FAMILY HISTORY: Significant for diabetes in multiple family members. No coronary artery disease.) - Exam General Appearance: NAD, awake alert ENT: normocephalic atraumatic, no oropharyngeal lesions, moist mucosa ENT - other findings: minimal swelling right tongue Neck: no JVD, no lymphadenopathy Heart: RRR, no murmur, no gallops, no rubs Respiratory: CTAB, no wheezes, no rales, no ronchi Gastrointestinal: soft, non-tender, non-distended, normal bowel sounds, no palpable masses, no hepatomegaly, no splenomegaly, no bruit Extremities: no edema Neurological: cranial nerve grossly intact, normal sensation to touch, no weakness, no focal deficits Musculoskeletal: normal tone, normal strength, no muscle wasting Psychiatric: normal affect, normal behavior, A&O x 3 Hospitalist Results - Labs Result Diagrams: 11/06/19 22:09 Hospitalist H&P A/P - Problem (1) Angioedema due to angiotensin converting enzyme inhibitor (ANGELA-I) Code(s): T78.3XXA - ANGIONEUROTIC EDEMA, INITIAL ENCOUNTER; T46.4X5A - ADVERSE EFFECT OF [id number] INHIBITORS, INIT Status: Acute Assessment and Plan: -developed acute swelling of neck and right side of tongue -was treated with steroids prior to arrival to ED, significantly improved -no airway compromise -had several such episodes, though less severe, in the past 2 years -ACEI was discontinued months ago yet continued to take it -monitor -ENT consulted by ED, may assess patient tomorrow -npo until morning, if continues to improve can have breakfast (2) DM type 2 (diabetes mellitus, type 2) Status: Chronic Qualifiers: Diabetes mellitus usp insulin use: without watermelon inspector use Diabetes mellitus complication status: with kidney complications Diabetes mellitus complication detail: with chronic kidney disease Chronic kidney disease stage : stage 4 (severe) Qualified Code(s): E11.22 - Type 2 diabetes mellitus with diabetic chronic kidney disease; N18.4 - Chronic kidney disease, stage 4 (severe ) Assessment and Plan: -presented with grossly elevated BG > 700 -unlikely due to steroids only; likely poorly controlled T2DM -no anion gap -will treat with lispro 10u q1h based on measurement, will start lantus 30u and lispro 10u wm -a1c (3) Chronic renal failure, stage 4 (severe) Code(s): N18.4 - CHRONIC KIDNEY DISEASE, STAGE 4 (SEVERE) Status: Acute Assessment and Plan: -Was planned to initiate peritoneal HD, however never followed up -nephrology consulted -BMP since may be acute component; no recent baseline in EMR (4) HTN (hypertension) Code(s): I10 - ESSENTIAL (PRIMARY) HYPERTENSION Status: Chronic Qualifiers: Hypertension type: essential hypertension Qualified Code(s): I10 - Essential (primary) hypertension Assessment and Plan: BP well controlled; based on most recent discharge summary, no antihtn medications prescribed
[2019-11-06 22:33] LABS: Anion Gap 15 mmol/L (10-20); BUN (Urea Nitrogen) 74 mg/dL (9.8-20.1); Calc. Creatinine Clearance 25 mL/min (70-130); Calcium 8.5 mg/dL (7.8-10.44); Carbon Dioxide 19 mmol/L (22-29); Chloride 102 mmol/L (98-107); Estimated GFR-MDRD 11; Potassium 5.6 mmol/L (3.5-5.1); Sodium 130 mmol/L (136-145)
[2019-11-06 22:39] LABS: Glucose 743 mg/dL (70-105)
[2019-11-07 00:09] LABS: Glucose POC Confirmation 659 mg/dl (70-105)
[2019-11-07] MEDS ORDERED: HumaLOG 300 UNITS/3 ML VIAL SC SCH ×2 (00:30→03:15)
[2019-11-07] MEDS ORDERED: Insulin Glargine 30 UNITS in Pre-Filled Syringe 1 EACH SC SCH ×2 (00:45→21:00)
[2019-11-07 06:22] LABS: #Lymphocytes 0.9 thou/uL (1.20-3.40); #Monocytes 0.4 thou/uL (0.11-0.59); #Neutrophils 11.1 thou/uL (1.40-6.50); %Eosinophils 0.2 % (0.0-10.0); %Lymphocytes 7.1 % (21.0-51.0); %Monocytes 3.2 % (0.0-10.0); %Neutrophils 89.5 % (42.0-75.0); Mean Corpuscular HGB CONC 33.8 g/dL (32.0-36.0); Mean Corpuscular Hemoglobin 30.6 pg (27.0-31.0); Mean Corpuscular Volume 90.6 fL (78.0-98.0); Mean Platelet Volume 9.8 fL (7.4-10.4); Platelet Count 177 thou/uL (130-400); RBC Distribution Width 12.6 % (11.5-14.5); White Blood Cell (WBC) Count 12.4 thou/uL (4.8-10.8)
[2019-11-07 06:31] LABS: Hemoglobin A1c 8.9 % (4.0-6.0)
[2019-11-07 06:39] LABS: Anion Gap 17 mmol/L (10-20); BUN (Urea Nitrogen) 78 mg/dL (9.8-20.1); Calc. Creatinine Clearance 27 mL/min (70-130); Calcium 9.1 mg/dL (7.8-10.44); Carbon Dioxide 18 mmol/L (22-29); Chloride 106 mmol/L (98-107); Estimated GFR-MDRD 12; Glucose 244 mg/dL (70-105); Potassium 4.6 mmol/L (3.5-5.1); Sodium 136 mmol/L (136-145)
[2019-11-07] MEDS: HumaLOG 300 UNITS/3 ML VIAL SC SCH ×3 (09:33→19:30)
[2019-11-07] MEDS: Gabapentin 300 MG CAP PO SCH ×2 (09:33→21:54)
[2019-11-07] MEDS: Enoxaparin Sodium 30 MG/0.3 ML SYRINGE SC SCH (09:33)
[2019-11-07] MEDS: Calcitriol 0.25 MCG CAP PO SCH (09:33)
--- NOTE | 2019-11-07 10:38 | CON ---
DATE OF CONSULTATION: HISTORY OF PRESENT ILLNESS: Ms. Cassandra Jack is a 59-year-old white female, who was admitted for an angioedema. Of interest, the patient was previously on lisinopril and this has now been discontinued. We are now being consulted for chronic renal failure. The patient was seen previously by the Renal Service and at that time, she came in with the dialysis catheter. I did find that she had enough renal function to be off dialysis. This morning, she is feeling better. REVIEW OF SYSTEMS: No chest pain. No shortness of breath. No nausea. No vomiting. No diarrhea. No constipation. Denies any leg edema at the current time. No productive cough. No fever or chills. No gross hematuria. No dysuria. No urinary frequency. MEDICATIONS: Home medications included; furosemide, Singulair ? of lisinopril. Current medications: She is on, 1. Humalog sliding scale. 2. Gabapentin 300 mg p.o. b.i.d. 3. Lovenox 30 mg subcu daily. 4. Sodium bicarbonate 650 mg p.o. t.i.d. PAST MEDICAL HISTORY: 1. Chronic renal failure secondary to diabetic nephropathy, status post acute kidney injury secondary to superimposed ATN, status post Salmonella infection. 2. Hypertension. 3. Type 2 diabetes mellitus. 4. ? of rheumatoid arthritis. 5. COPD. PAST SURGICAL HISTORY: Status post cuffed hemodialysis catheter placement. ALLERGIES: CODEINE AND SEA FOOD, CURRENTLY LISINOPRIL ? TRAUMA: None. IMMUNIZATIONS: Up-to-date. HOSPITALIZATIONS: Please see past medical history. SOCIAL HISTORY: The patient originally from [place]. Currently, lives in [place]. She has 2 children with 1 . No IV drug abuse. No blood transfusion. Education, high school. 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 FAMILY HISTORY: Positive family history of ESRD, one child was on dialysis due to reflux nephropathy. PHYSICAL EXAMINATION: VITAL SIGNS: Blood pressure 121/68, heart rate 92, respiratory rate 18, temperature 97.8, and pulse ox 92%. GENERAL: The patient is awake, alert, comfortable, not in distress. SKIN: Adequate turgor. HEENT: Pinkish conjunctivae. Anicteric sclerae. NECK: No neck mass. No carotid bruits. No JVD. CHEST: No deformities. LUNGS: Clear breath sounds. HEART: Normal sinus rhythm. No murmur. No gallops. No rubs. ABDOMEN: Globular, soft, and nontender. No masses. EXTREMITIES: No edema. No deformities. LABORATORY DATA: Laboratories of November 06, 2019; sodium 139, potassium 5, chloride 108, carbon dioxide 16, BUN 70, creatinine 4.05, glucose 341, calcium 8.6, AST 14, ALT 11, and GFR is 11 mL/minute. ASSESSMENT AND PLAN: 1. Acute kidney injury/chronic renal failure - I suspect there is a superimposed hemodynamically-mediated renal dysfunction. According to the patient, she has been on furosemide as well as on lisinopril. My plan is agree to hold off diuretics and ANGELA inhibitors. We will start the patient on albumin infusion at 25 g IV q.6. No indication for an emergent dialysis with this patient. 2. Angioedema, resolved. Hold off any ANGELA inhibitors for the moment. We will recheck basic metabolic panel and CBC in a.m. Job ID: [id number]
[2019-11-07] MEDS: Sodium Bicarbonate Tab 325 MG TAB PO SCH ×3 (11:09→23:54)
[2019-11-07] MEDS: Albumin 25% 25 GM/100 ML BOT IVPB SCH ×3 (11:12→23:53)
[2019-11-07] MEDS: Sodium Chloride 0.9% 1,000 ML IV SCH (11:20)
--- NOTE | 2019-11-07 14:37 | PDOC.HOSPP ---
- Subjective Encounter Date: 11/07/19 Encounter Time: 07:20 Subjective: Pt seen for followup re: acute on chronic renal failure. Feels better. No lip/ tongue swelling. - Objective Vital Signs & Weight: Vital Signs (12 hours) Temp Pulse Resp BP BP Pulse Ox 11/07/19 11:37 98.4 F 78 16 124/58 L 93 L 11/07/19 07:49 97.8 F 92 18 121/68 92 L 11/07/19 07:10 74 16 11/07/19 04:44 98.2 F 82 16 133/75 95 Weight Weight 243 lb 3 oz I&O: 11/06/19 11/07/19 11/08/19 06:59 06:59 06:59 Intake Total 720 Output Total 1200 Balance -480 Result Diagrams: 11/07/19 05:19 11/07/19 05:19 Additional Labs: Accuchecks 11/07/19 11/07/19 11/07/19 10:27 06:15 02:55 POC Glucose 170 H 173 H 470 H Labs and MARs reviewed by [facility] Hospitalist ROS - Review of Systems Cardiovascular: denies: chest pain, palpitations, orthopnea, paroxysmal noc. dyspnea, edema, light headedness Gastrointestinal: denies: nausea, vomiting, abdominal pain, diarrhea, constipation, melena, hematochezia Genitourinary: denies: dysuria, frequency, incontinence, hematuria, retention Musculoskeletal: denies: neck pain, shoulder pain, arm pain, back pain, hand pain, leg pain, foot pain Skin: denies: rash, lesions, radha, bruising - Medication Medications: Active Medications Generic Name Dose Route Start Last Admin Trade Name Freq PRN Reason Stop Dose Admin Albumin Human 25 gm 11/07/19 12:00 11/07/19 11:12 Albumin 25% IVPB 11/08/19 06:01 25 gm Q6HR ARETHA Administration Albuterol/Ipratropium 3 ml 11/06/19 21:54 11/07/19 07:10 Duoneb NEB 3 ml [id number] PRN Administration SOB &/or Wheezing Calcitriol 0.25 mcg 11/07/19 09:00 11/07/19 09:33 Rocaltrol PO 0.25 mcg DAILY ARETHA Administration Enoxaparin Sodium 30 mg 11/07/19 09:00 11/07/19 09:33 Lovenox SC 30 mg 0900 ARETHA Administration Gabapentin 300 mg 11/07/19 09:00 11/07/19 09:33 Neurontin PO 300 mg BID ARETHA Administration Sodium Chloride 1,000 mls @ 100 mls/hr 11/07/19 10:15 11/07/19 11:20 Normal Saline 0.9% IV 1,000 mls .Q10H ARETHA Administration Insulin Human Lispro 10 units 11/07/19 08:00 11/07/19 09:33 Humalog SC 10 unit TID-WM ARETHA Administration Sodium Bicarbonate 650 mg 11/07/19 09:00 11/07/19 11:09 Bicarbonate, Sodium PO 650 mg TID ARETHA Administration - Exam General - other findings: Morbid obesity Eye: anicteric sclera ENT: moist mucosa Neck: supple, symmetric, no thyromegaly, no lymphadenopathy Heart: RRR, no gallops, no rubs, normal peripheral pulses Respiratory: CTAB, no wheezes, no rales, no ronchi Gastrointestinal: soft, non-tender, non-distended, normal bowel sounds Extremities: no clubbing Neurological: no weakness Musculoskeletal: no muscle wasting Psychiatric: normal affect, normal behavior, A&O x 3 Hosp A/P (1) Acute renal failure superimposed on stage 5 chronic kidney disease, not on chronic dialysis Code(s): N17.9 - ACUTE KIDNEY FAILURE, UNSPECIFIED; N18.5 - CHRONIC KIDNEY DISEASE, STAGE 5 Status: Acute (2) HTN (hypertension) Code(s): I10 - ESSENTIAL (PRIMARY) HYPERTENSION Status: Chronic Qualifiers: Hypertension type: essential hypertension Qualified Code(s): I10 - Essential (primary) hypertension (3) Morbid obesity Code(s): E66.01 - MORBID (SEVERE) OBESITY DUE TO EXCESS CALORIES Status: Chronic (4) DM type 2 (diabetes mellitus, type 2) Status: Chronic Qualifiers: Diabetes mellitus watermaster insulin use: without usp use Diabetes mellitus complication status: with kidney complications Diabetes mellitus complication detail: with chronic kidney disease Chronic kidney disease stage : stage 4 (severe) Qualified Code(s): E11.22 - Type 2 diabetes mellitus with diabetic chronic kidney disease; N18.4 - Chronic kidney disease, stage 4 (severe ) (5) GERD (gastroesophageal reflux disease) Code(s): K21.9 - GASTRO-ESOPHAGEAL REFLUX DISEASE WITHOUT ESOPHAGITIS Status: Chronic Qualifiers: Esophagitis presence: esophagitis presence not specified Qualified Code(s) : K21.9 - Gastro-esophageal reflux disease without esophagitis (6) Angioedema due to angiotensin converting enzyme inhibitor (ANGELA-I) Code(s): T78.3XXA - ANGIONEUROTIC EDEMA, INITIAL ENCOUNTER; T46.4X5A - ADVERSE EFFECT OF [id number]-GDEMOF INHIBITORS, INIT Status: Resolved - Plan Angioedema resolved. Pt counseled re: stopping ACEI. Pt to receive albumin today. Continue accuchecks and insulin sliding scale. HTN controlled.
[2019-11-07] MEDS ORDERED: guaiFENesin 100 MG/5 ML UDCUP PO PRN (17:13)
[2019-11-08] MEDS: Sodium Chloride 0.9% 1,000 ML IV SCH ×2 (02:02→12:08)
[2019-11-08 05:11] LABS: Anion Gap 14 mmol/L (10-20); BUN (Urea Nitrogen) 78 mg/dL (9.8-20.1); Calc. Creatinine Clearance 29 mL/min (70-130); Calcium 8.3 mg/dL (7.8-10.44); Carbon Dioxide 20 mmol/L (22-29); Chloride 111 mmol/L (98-107); Estimated GFR-MDRD 12; Glucose 180 mg/dL (70-105); Potassium 4.8 mmol/L (3.5-5.1); Sodium 140 mmol/L (136-145)
[2019-11-08 05:23] LABS: #Eosinphils 0.1 thou/uL (0.0-0.7); #Lymphocytes 2.2 thou/uL (1.20-3.40); #Monocytes 0.3 thou/uL (0.11-0.59); #Neutrophils 5.2 thou/uL (1.40-6.50); %Basophils 0.4 % (0.0-1.0); %Lymphocytes 28.1 % (21.0-51.0); %Neutrophils 66.5 % (42.0-75.0); Band 3 % (5-11); Lymphocytes 23 % (21-51); MDiff Complete? YES; Mean Corpuscular HGB CONC 34.5 g/dL (32.0-36.0); Mean Corpuscular Hemoglobin 31.4 pg (27.0-31.0); Mean Platelet Volume 8.6 fL (7.4-10.4); Monocytes 5 % (0-10); Neutrophil 68 % (42-75); Platelet Count 109 thou/uL (130-400); Platelet Morphology Comment Appears Decreased; RBC Distribution Width 12.5 % (11.5-14.5); RBC Morphology Normal; Red Blood Cell (RBC) Count 2.85 mill/uL (4.20-5.40); White Blood Cell (WBC) Count 7.8 thou/uL (4.8-10.8)
[2019-11-08] MEDS: Albumin 25% 25 GM/100 ML BOT IVPB SCH (06:11)
[2019-11-08 08:14] VITALS: BP 137/77; TEMP 97.8
[2019-11-08] MEDS: Calcitriol 0.25 MCG CAP PO SCH (08:40)
[2019-11-08] MEDS: Gabapentin 300 MG CAP PO SCH (08:40)
[2019-11-08] MEDS: Enoxaparin Sodium 30 MG/0.3 ML SYRINGE SC SCH (08:40)
[2019-11-08] MEDS: HumaLOG 300 UNITS/3 ML VIAL SC SCH ×2 (08:40→12:40)
[2019-11-08] MEDS: Sodium Bicarbonate Tab 325 MG TAB PO SCH (08:40)
--- NOTE | 2019-11-08 11:01 | PRG ---
DATE OF SERVICE: 11/08/2019 SUBJECTIVE: Ms. Cassandra Jack is a 59-year-old female, who was seen by the Renal Service for her acute kidney injury on top of her chronic renal failure. She was given volume hydration with improvement of the renal function. She has been instructed to hold off any ANGELA inhibitors as well as diuretics for the moment. She was initially admitted for angioedema. She voices no new complaints. She voices no chest pain or shortness of breath. OBJECTIVE: VITAL SIGNS: Blood pressure 137/77, heart rate 82, respiratory rate 20, temperature 97.1, O2 saturation 91%. GENERAL: The patient is awake, alert, comfortable, obese, not in distress. SKIN: Adequate turgor. HEENT: Slightly pale conjunctivae. Anicteric sclerae. No neck mass. No carotid bruits. No JVD. CHEST: No deformities. LUNGS: Clear breath sounds. HEART: Normal sinus rhythm. No murmur. No gallops. No rubs. ABDOMEN: Globular, soft, nontender. EXTREMITIES: No edema. MEDICATIONS: Of November 08, 2019, reviewed. LABORATORY DATA: Laboratories of November 08, 2019: Sodium 140, potassium 4.8, chloride 111, carbon dioxide 20, BUN 78, creatinine 3.74, glucose 180, calcium 8.3. White count 7.8, hemoglobin 9. ASSESSMENT AND PLAN: 1. Acute kidney injury/chronic renal failure - superimposed prerenal azotemia, much improved with IV hydration. Hold diuretics or ANGELA inhibitors for the moment. No indication for any emergent hemodialysis. 2. Anemia. Continue to observe. Consider starting the patient on ferrous sulfate 325 mg p.o. b.i.d. If persistent, consider referring to Hematology for Procrit shots. 3. Overall agree with current management. Job ID: [id number]
[2019-11-08] MEDS ORDERED: Ferrous Sulfate 325 MG TAB PO SCH (17:00)
--- NOTE | 2019-11-09 06:02 | DIS ---
DATE OF ADMISSION: 11/06/2019 DATE OF DISCHARGE: 11/08/2019 PRIMARY CARE PROVIDER: [facility] in [place]. DISCHARGE DIAGNOSES: 1. Angioedema. 2. Acute on chronic stage 5 renal failure. CONDITION OF PATIENT ON THE DAY OF DISCHARGE: Stable. I assessed Ms. Cassandra Jack. She denies any chest pain or shortness of breath. Vital signs are stable. S1 and S2 are heard, regular. Lungs are clear to auscultation bilaterally. DISCHARGE MEDICATIONS: Lisinopril has been discontinued. Otherwise, no change was made to her pre-admission home medications, which include; 1. Gabapentin 300 mg 2 times a day. 2. Singulair 10 mg at bedtime. 3. Lasix 40 mg daily. 4. Albuterol HFA p.r.n. 5. Albuterol nebulizer p.r.n. CONSULTATIONS DURING THIS HOSPITALIZATION: Nephrology, Dr. Owusu. HOSPITAL COURSE: Ms. Cassandra Jack is a pleasant 59-year-old lady who was admitted to [facility] for angioedema secondary to ANGELA inhibitor use on November 06, 2019. Please refer to Dr. Whyte's history and physical note dated November 06, 2019 for further details. She was also seen by Nephrology Service for acute on chronic renal failure. ANGELA inhibitor was discontinued and her symptoms resolved. Creatinine also improved. She is being discharged home in a stable condition. POST ACUTE CARE FOLLOWUP: With primary care provider in 3 days. She has also been advised to have her kidney function checked through her primary care provider's office. She is also advised to check her blood pressure and heart rate 3 times a day and show the readings to primary care provider for titration of her blood pressure medications. ACTIVITY: No restrictions. DIET: Heart healthy, diabetic and renal. DISCHARGE DESTINATION: Home. Job ID: [id number]
== END 2019-11-08 14:25 | disposition home or self-care (01) ==
LOC: ERS 14:50 → 2SW 17:13
PROVIDERS: ADMIT Internal Medicine; ATTEND Internal Medicine
DX: T78.3XXA Angioneurotic edema, initial encounter (principal); T46.4X5A Adverse effect of angiotensin-converting-enzyme inhibitors, initial encounter; I12.0 Hypertensive chronic kidney disease with stage 5 chronic kidney disease or end stage renal disease; E11.22 Type 2 diabetes mellitus with diabetic chronic kidney disease; E11.40 Type 2 diabetes mellitus with diabetic neuropathy, unspecified; N18.5 Chronic kidney disease, stage 5; N17.9 Acute kidney failure, unspecified; M06.9 Rheumatoid arthritis, unspecified; K21.9 Gastro-esophageal reflux disease without esophagitis; F17.210 Nicotine dependence, cigarettes, uncomplicated; E66.01 Morbid (severe) obesity due to excess calories; Z68.41 Body mass index [BMI] 40.0-44.9, adult; Z79.4 Long term (current) use of insulin; Z79.899 Other long term (current) drug therapy; Z88.5 Allergy status to narcotic agent; Z88.8 Allergy status to other drugs, medicaments and biological substances; Z91.013 Allergy to seafood
CPT/HCPCS: 36415; 36416; 80048; 83036; 85025; 94640; 96361; 96365; 96372; 96376; 99285; G0378; J1650; J1815; J7620; P9047

== ENCOUNTER 2021-06-18 18:40 | Inpatient (IN) | payer MEDICAID, OTHER ==
[2021-06-18] MEDS ORDERED: Ondansetron PF 4 MG/2 ML Vial IVP PRN (19:54)
[2021-06-18] MEDS ORDERED: Acetaminophen 325 MG TAB PO PRN (19:54)
[2021-06-18] MEDS ORDERED: Norepinephrine 8 MG/0.9% NS 250 ML IVPB PRN (20:00)
[2021-06-18] MEDS ORDERED: Dextrose 50% Abboject 50 ML SYRINGE SLOW IVP PRN (20:03)
[2021-06-18] MEDS ORDERED: HumaLOG 300 UNITS/3 ML VIAL SC PRN (20:03)
[2021-06-18] MEDS ORDERED: Dextrose 5% in Water 1,000 ML IV PRN (20:03)
[2021-06-18] MEDS ORDERED: Albuterol Sulfate 2.5 mg/3 ml Neb NEB PRN (20:08)
[2021-06-18 20:47] LABS: Anion Gap 22 mmol/L (10-20); BUN (Urea Nitrogen) 102 mg/dL (9.8-20.1); Calc. Creatinine Clearance 0 mL/min (70-130); Calcium 7.6 mg/dL (7.8-10.44); Carbon Dioxide 10 mmol/L (22-29); Chloride 111 mmol/L (98-107); Glucose 136 mg/dL (70-105); Magnesium 1.8 mg/dL (1.6-2.6); Potassium 6.1 mmol/L (3.5-5.1); Sodium 137 mmol/L (136-145)
[2021-06-18] MEDS ORDERED: Sodium Bicarb 50 MEQ/50 ML Abboject 8.4% SYRINGE IVP SCH (21:15)
[2021-06-18] MEDS: Albumin 25% 25 GM/100 ML BOT IVPB SCH (21:28)
[2021-06-18] MEDS: Heparin 5,000 UNITS/ML VIAL SC SCH (21:33)
[2021-06-18 21:49] LABS: Actual Bicarbonate (HCO3a) 11.8 mEq/L (22-28); Base Excess (BEa) -20.1 mEq/L (-2.0 to +3.0); CO2 Tension 57.2 mmHg (35.0-45.0); Carboxyhemoglobin (COHb) 3.1 gm% (0.0-3.0); Hemoglobin (Hb) 10.4 g/dL (12.0-16.0); O2 Tension (PaO2), arterial 98.5 mmHg (> 80.0); Potassium - ABG Lab 6.14 mmol/L (3.70-5.30)
[2021-06-18 21:51] LABS: Puncture Site LR; pH, Arterial 6.93 (7.35-7.45)
[2021-06-18] MEDS ORDERED: Sodium Bicarbonate 150 MEQ in Dextrose 5% in Water 850 ML IV SCH (22:30)
[2021-06-18] MEDS ORDERED: methylPREDNISolone Sod Succ 40 MG VIAL IVP SCH (22:45)
[2021-06-18] MEDS ORDERED: Bacteriostatic Water 30 ML VIAL FS PRN (22:45)
[2021-06-18 23:25] LABS: Troponin I 0.108 ng/mL (< 0.028)
[2021-06-19] MEDS: Albumin 25% 25 GM/100 ML BOT IVPB SCH ×3 (03:08→16:00)
[2021-06-19 03:53] LABS: #Eosinphils 0.1 thou/uL (0.0-0.7); #Lymphocytes 0.5 thou/uL (1.20-3.40); #Monocytes 0.3 thou/uL (0.11-0.59); #Neutrophils 8.8 thou/uL (1.40-6.50); %Basophils 0.5 % (0.0-1.0); %Eosinophils 0.6 % (0.0-10.0); %Lymphocytes 5.2 % (21.0-51.0); %Monocytes 2.6 % (0.0-10.0); %Neutrophils 91.1 % (42.0-75.0); Hemoglobin 9.8 g/dL (12.0-16.0); Mean Corpuscular HGB CONC 32.6 g/dL (32.0-36.0); Mean Corpuscular Hemoglobin 32.2 pg (27.0-31.0); Mean Corpuscular Volume 98.8 fL (78.0-98.0); Mean Platelet Volume 9.4 fL (7.4-10.4); Platelet Count 149 thou/uL (130-400); RBC Distribution Width 16.3 % (11.5-14.5); Red Blood Cell (RBC) Count 3.04 mill/uL (4.20-5.40); White Blood Cell (WBC) Count 9.6 thou/uL (4.8-10.8)
[2021-06-19 04:13] LABS: ALT (SGPT) 15 U/L (8-55); AST (SGOT) 28 U/L (5-34); Alkaline Phosphatase 180 U/L (40-110); Anion Gap 25 mmol/L (10-20); BUN (Urea Nitrogen) 106 mg/dL (9.8-20.1); Bilirubin, Total 0.6 mg/dL (0.2-1.2); Calc. Creatinine Clearance 0 mL/min (70-130); Calcium 7.8 mg/dL (7.8-10.44); Carbon Dioxide 10 mmol/L (22-29); Chloride 110 mmol/L (98-107); Globulin 2.5 g/dL (2.4-3.5); Glucose 178 mg/dL (70-105); Magnesium 1.7 mg/dL (1.6-2.6); Potassium 5.5 mmol/L (3.5-5.1); Protein, Total 6.5 g/dL (6.0-8.3); Sodium 139 mmol/L (136-145)
[2021-06-19] MEDS ORDERED: Nystatin Powder 15 GM BOT TOP PRN (04:49)
[2021-06-19] MEDS: Sodium Bicarbonate 150 MEQ in Dextrose 5% in Water 850 ML IV SCH ×3 (05:08→22:33)
[2021-06-19] MEDS: methylPREDNISolone Sod Succ 40 MG VIAL IVP SCH ×3 (07:14→21:05)
[2021-06-19 08:01] LABS: Troponin I 0.127 ng/mL (< 0.028)
[2021-06-19] MEDS: Famotidine 20 MG TAB PO SCH (08:39)
[2021-06-19] MEDS: Heparin 5,000 UNITS/ML VIAL SC SCH ×3 (08:42→20:45)
[2021-06-19] MEDS ORDERED: Heparin 10,000 UNITS/ 10 ML VIAL ONE (08:44)
[2021-06-19] MEDS ORDERED: FLU VACC QS2021-22(6MOS UP)/PF 60 MCG/0.5 ML SYRINGE IM ONE (12:00)
[2021-06-19] MEDS ORDERED: Ventilator Sedation Protocol 1 EACH FS ONE (13:15)
[2021-06-19] MEDS ORDERED: Propofol 1,000 MG/100 ML VIAL IV ONE (13:22)
[2021-06-19 13:36] LABS: Actual Bicarbonate (HCO3a) 15.7 mEq/L (22-28); Base Excess (BEa) -14.1 mEq/L (-2.0 to +3.0); CO2 Tension 55.5 mmHg (35.0-45.0); Calcium, Ionized (arterial) 1.03 mmol/L (1.12-1.30); Carboxyhemoglobin (COHb) 1.3 gm% (0.0-3.0); Hemoglobin (Hb) 9.9 g/dL (12.0-16.0); O2 Tension (PaO2), arterial 84.4 mmHg (> 80.0); Potassium - ABG Lab 5.06 mmol/L (3.70-5.30)
[2021-06-19 13:37] LABS: ALV-art Gradient -146.645 mmHg (0-20); Puncture Site LRA; pH, Arterial 7.07 (7.35-7.45)
[2021-06-19] MEDS ORDERED: Morphine 2 MG/ML VIAL SLOW IVP PRN (13:45)
[2021-06-19] MEDS ORDERED: Propofol BOLUS 1,000 MG/100 ML VIAL IV PRN (13:45)
[2021-06-19] MEDS ORDERED: Fentanyl BOLUS 250 ML IVPB PRN (13:45)
[2021-06-19] MEDS ORDERED: Lorazepam 2 MG/ML VIAL SLOW IVP PRN (13:45)
[2021-06-19] MEDS ORDERED: Vecuronium 10 MG VIAL IV SCH (13:45)
[2021-06-19 14:31] LABS: Actual Bicarbonate (HCO3a) 13.9 mEq/L (22-28); Base Excess (BEa) -12.4 mEq/L (-2.0 to +3.0); CO2 Tension 33.5 mmHg (35.0-45.0); Calcium, Ionized (arterial) 0.98 mmol/L (1.12-1.30); Carboxyhemoglobin (COHb) 1.3 gm% (0.0-3.0); Hemoglobin (Hb) 9.2 g/dL (12.0-16.0); Potassium - ABG Lab 4.74 mmol/L (3.70-5.30)
[2021-06-19 14:33] LABS: ALV-art Gradient 149.325 mmHg (0-20); Puncture Site LRA; pH, Arterial 7.24 (7.35-7.45)
[2021-06-19] MEDS: Fentanyl CADD 100 ML IV SCH (16:03)
[2021-06-19] MEDS: Propofol 1,000 MG/100 ML VIAL IV PRN ×2 (16:35→20:45)
[2021-06-19 17:28] LABS: HBSAB Concentration Less than 8.00 mIU/mL; Hep B Surf AB Non-Reactive (NonReactive); Hep B Surf Ag Non-Reactive S/CO (NonReactive)
[2021-06-20] MEDS: Propofol 1,000 MG/100 ML VIAL IV PRN ×6 (01:15→21:42)
[2021-06-20 04:12] LABS: #Basophils 0.1 thou/uL (0.0-0.2); #Lymphocytes 0.3 thou/uL (1.20-3.40); #Monocytes 0.2 thou/uL (0.11-0.59); #Neutrophils 4.1 thou/uL (1.40-6.50); %Basophils 1.3 % (0.0-1.0); %Eosinophils 0.2 % (0.0-10.0); %Lymphocytes 5.6 % (21.0-51.0); %Monocytes 4.7 % (0.0-10.0); %Neutrophils 88.3 % (42.0-75.0); Hemoglobin 7.7 g/dL (12.0-16.0); Mean Corpuscular HGB CONC 33.5 g/dL (32.0-36.0); Mean Corpuscular Hemoglobin 31.4 pg (27.0-31.0); Mean Corpuscular Volume 93.8 fL (78.0-98.0); Mean Platelet Volume 9.2 fL (7.4-10.4); Platelet Count 126 thou/uL (130-400); RBC Distribution Width 15.8 % (11.5-14.5); Red Blood Cell (RBC) Count 2.46 mill/uL (4.20-5.40); White Blood Cell (WBC) Count 4.6 thou/uL (4.8-10.8)
[2021-06-20 04:36] LABS: ALT (SGPT) 11 U/L (8-55); AST (SGOT) 15 U/L (5-34); Albumin 3.3 g/dL (3.5-5.0); Alkaline Phosphatase 125 U/L (40-110); Anion Gap 23 mmol/L (10-20); BUN (Urea Nitrogen) 83 mg/dL (9.8-20.1); Bilirubin, Total 0.7 mg/dL (0.2-1.2); Calc. Creatinine Clearance 17 mL/min (70-130); Calcium 7.4 mg/dL (7.8-10.44); Carbon Dioxide 18 mmol/L (22-29); Chloride 103 mmol/L (98-107); Globulin 1.9 g/dL (2.4-3.5); Glucose 200 mg/dL (70-105); Magnesium 1.5 mg/dL (1.6-2.6); Potassium 3.6 mmol/L (3.5-5.1); Protein, Total 5.2 g/dL (6.0-8.3); Sodium 140 mmol/L (136-145)
[2021-06-20] MEDS: HumaLOG 300 UNITS/3 ML VIAL SC PRN ×2 (05:19→10:30)
[2021-06-20] MEDS: methylPREDNISolone Sod Succ 40 MG VIAL IVP SCH ×2 (05:30→20:33)
[2021-06-20] MEDS ORDERED: Fentanyl CADD 100 ML ONE ×2 (06:34→19:43)
[2021-06-20] MEDS: Fentanyl CADD 100 ML IV SCH ×2 (06:37→19:49)
[2021-06-20 07:34] LABS: Actual Bicarbonate (HCO3a) 17.5 mEq/L (22-28); Base Excess (BEa) -6.6 mEq/L (-2.0 to +3.0); CO2 Tension 29.4 mmHg (35.0-45.0); Calcium, Ionized (arterial) 0.95 mmol/L (1.12-1.30); Carboxyhemoglobin (COHb) 1.2 gm% (0.0-3.0); Hemoglobin (Hb) 7.9 g/dL (12.0-16.0); Potassium - ABG Lab 3.33 mmol/L (3.70-5.30); pH, Arterial 7.39 (7.35-7.45)
[2021-06-20 07:39] LABS: Puncture Site LRA
[2021-06-20] MEDS: Famotidine 20 MG TAB PO SCH (08:36)
[2021-06-20] MEDS: Heparin 5,000 UNITS/ML VIAL SC SCH ×3 (08:36→20:31)
[2021-06-20] MEDS ORDERED: Heparin 10,000 UNITS/ 10 ML VIAL ONE (09:05)
[2021-06-20] MEDS: EPOETIN ALFA-EPBX (ESRD) 4,000 UNIT/ML VIAL SC SCH (10:13)
[2021-06-20] MEDS ORDERED: Morphine 4 MG/ML VIAL SLOW IVP PRN (14:30)
[2021-06-21] MEDS: Propofol 1,000 MG/100 ML VIAL IV PRN ×2 (01:33→04:49)
[2021-06-21 03:51] LABS: #Lymphocytes 0.4 thou/uL (1.20-3.40); #Monocytes 0.2 thou/uL (0.11-0.59); #Neutrophils 5.1 thou/uL (1.40-6.50); %Basophils 0.2 % (0.0-1.0); %Eosinophils 0.6 % (0.0-10.0); %Lymphocytes 6.8 % (21.0-51.0); %Neutrophils 88.5 % (42.0-75.0); Hemoglobin 8.1 g/dL (12.0-16.0); Mean Corpuscular HGB CONC 34.2 g/dL (32.0-36.0); Mean Corpuscular Hemoglobin 32.7 pg (27.0-31.0); Mean Corpuscular Volume 95.8 fL (78.0-98.0); Mean Platelet Volume 8.8 fL (7.4-10.4); Platelet Count 124 thou/uL (130-400); Red Blood Cell (RBC) Count 2.47 mill/uL (4.20-5.40); White Blood Cell (WBC) Count 5.8 thou/uL (4.8-10.8)
[2021-06-21 04:12] LABS: ALT (SGPT) 10 U/L (8-55); AST (SGOT) 15 U/L (5-34); Albumin 3.2 g/dL (3.5-5.0); Alkaline Phosphatase 111 U/L (40-110); Anion Gap 18 mmol/L (10-20); BUN (Urea Nitrogen) 52 mg/dL (9.8-20.1); Bilirubin, Total 0.6 mg/dL (0.2-1.2); Calc. Creatinine Clearance 23 mL/min (70-130); Calcium 7.6 mg/dL (7.8-10.44); Carbon Dioxide 23 mmol/L (22-29); Chloride 101 mmol/L (98-107); Globulin 1.9 g/dL (2.4-3.5); Glucose 155 mg/dL (70-105); Magnesium 1.5 mg/dL (1.6-2.6); Potassium 3.6 mmol/L (3.5-5.1); Protein, Total 5.1 g/dL (6.0-8.3); Sodium 138 mmol/L (136-145)
[2021-06-21 07:57] LABS: Actual Bicarbonate (HCO3a) 23.7 mEq/L (22-28); CO2 Tension 39.2 mmHg (35.0-45.0); Calcium, Ionized (arterial) 0.95 mmol/L (1.12-1.30); Carboxyhemoglobin (COHb) 0.8 gm% (0.0-3.0); Hemoglobin (Hb) 8.3 g/dL (12.0-16.0); Potassium - ABG Lab 3.56 mmol/L (3.70-5.30)
[2021-06-21 07:59] LABS: Puncture Site LRA
[2021-06-21] MEDS ORDERED: Heparin 10,000 UNITS/ 10 ML VIAL ONE (09:07)
[2021-06-21] MEDS: Famotidine 20 MG TAB PO SCH (09:18)
[2021-06-21] MEDS: methylPREDNISolone Sod Succ 40 MG VIAL IVP SCH ×2 (09:18→21:16)
[2021-06-21] MEDS: Heparin 5,000 UNITS/ML VIAL SC SCH ×3 (09:18→21:16)
[2021-06-21 10:12] LABS: Triglycerides 177 mg/dL (Less than 150)
[2021-06-22 03:55] LABS: #Lymphocytes 0.5 thou/uL (1.20-3.40); #Monocytes 0.4 thou/uL (0.11-0.59); #Neutrophils 6.6 thou/uL (1.40-6.50); %Basophils 0.1 % (0.0-1.0); %Eosinophils 0.2 % (0.0-10.0); %Lymphocytes 6.6 % (21.0-51.0); %Monocytes 5.3 % (0.0-10.0); %Neutrophils 87.7 % (42.0-75.0); Hemoglobin 8.7 g/dL (12.0-16.0); Mean Corpuscular HGB CONC 32.2 g/dL (32.0-36.0); Mean Corpuscular Hemoglobin 31.8 pg (27.0-31.0); Mean Corpuscular Volume 98.8 fL (78.0-98.0); Mean Platelet Volume 8.4 fL (7.4-10.4); Platelet Count 118 thou/uL (130-400); Red Blood Cell (RBC) Count 2.74 mill/uL (4.20-5.40); White Blood Cell (WBC) Count 7.6 thou/uL (4.8-10.8)
[2021-06-22 04:39] LABS: ALT (SGPT) 12 U/L (8-55); AST (SGOT) 21 U/L (5-34); Albumin 3.7 g/dL (3.5-5.0); Alkaline Phosphatase 121 U/L (40-110); Anion Gap 17 mmol/L (10-20); BUN (Urea Nitrogen) 30 mg/dL (9.8-20.1); Calc. Creatinine Clearance 31 mL/min (70-130); Calcium 8.3 mg/dL (7.8-10.44); Carbon Dioxide 28 mmol/L (22-29); Chloride 99 mmol/L (98-107); Globulin 2.2 g/dL (2.4-3.5); Glucose 139 mg/dL (70-105); Protein, Total 5.9 g/dL (6.0-8.3); Sodium 140 mmol/L (136-145)
[2021-06-22] MEDS: methylPREDNISolone Sod Succ 40 MG VIAL IVP SCH ×2 (08:29→21:00)
[2021-06-22] MEDS: Heparin 5,000 UNITS/ML VIAL SC SCH ×3 (08:32→21:01)
[2021-06-22] MEDS ORDERED: Heparin 10,000 UNITS/ 10 ML VIAL ONE (09:09)
[2021-06-22] MEDS ORDERED: Bisacodyl 10 MG SUPP PR PRN (16:26)
[2021-06-22] MEDS: Senokot S 8.6-50 MG TAB PO SCH (21:00)
[2021-06-22] MEDS: Tetrahydrozoline 0.05% OPTH 15 ML BOT R EYE SCH (21:00)
[2021-06-23 05:30] LABS: #Basophils 0.1 thou/uL (0.0-0.2); #Lymphocytes 0.7 thou/uL (1.20-3.40); #Monocytes 0.3 thou/uL (0.11-0.59); #Neutrophils 4.7 thou/uL (1.40-6.50); %Basophils 1.9 % (0.0-1.0); %Eosinophils 0.5 % (0.0-10.0); %Lymphocytes 12.1 % (21.0-51.0); %Monocytes 5.4 % (0.0-10.0); %Neutrophils 80.1 % (42.0-75.0); Hemoglobin 8.5 g/dL (12.0-16.0); Mean Corpuscular Hemoglobin 31.5 pg (27.0-31.0); Mean Corpuscular Volume 98.3 fL (78.0-98.0); Mean Platelet Volume 8.4 fL (7.4-10.4); Platelet Count 110 thou/uL (130-400); RBC Distribution Width 15.5 % (11.5-14.5); Red Blood Cell (RBC) Count 2.71 mill/uL (4.20-5.40); White Blood Cell (WBC) Count 5.8 thou/uL (4.8-10.8)
[2021-06-23 05:58] LABS: ALT (SGPT) 20 U/L (8-55); AST (SGOT) 30 U/L (5-34); Albumin 3.6 g/dL (3.5-5.0); Alkaline Phosphatase 110 U/L (40-110); Anion Gap 15 mmol/L (10-20); BUN (Urea Nitrogen) 24 mg/dL (9.8-20.1); Bilirubin, Total 0.9 mg/dL (0.2-1.2); Calc. Creatinine Clearance 33 mL/min (70-130); Calcium 8.7 mg/dL (7.8-10.44); Carbon Dioxide 26 mmol/L (22-29); Chloride 102 mmol/L (98-107); Globulin 2.2 g/dL (2.4-3.5); Glucose 115 mg/dL (70-105); Protein, Total 5.8 g/dL (6.0-8.3); Sodium 139 mmol/L (136-145)
[2021-06-23] MEDS: Tetrahydrozoline 0.05% OPTH 15 ML BOT R EYE SCH ×2 (07:41→20:19)
[2021-06-23] MEDS: Polyethylene Glycol 3350 17 GM Packet PER TUBE SCH (07:41)
[2021-06-23] MEDS: methylPREDNISolone Sod Succ 40 MG VIAL IVP SCH ×2 (07:42→20:19)
[2021-06-23] MEDS: Senokot S 8.6-50 MG TAB PO SCH ×2 (07:42→20:20)
[2021-06-23] MEDS: hydrALAZINE 25 MG TAB PO SCH ×3 (07:42→20:21)
[2021-06-23] MEDS: Gabapentin 300 MG CAP PO SCH ×2 (07:42→20:20)
[2021-06-23] MEDS: Carvedilol 6.25 MG TAB PO SCH ×2 (07:43→20:20)
[2021-06-23] MEDS: Heparin 5,000 UNITS/ML VIAL SC SCH ×3 (07:45→20:19)
[2021-06-23] MEDS ORDERED: Tuberculin PPD 0.1 ML VIAL I-DERMAL SCH ×2 (10:00)
[2021-06-23 12:19] LABS: SARS-CoV-2 PCR by NAA Not Detected (NotDetected)
[2021-06-23 17:14] LABS: ALT (SGPT) 20 U/L (8-55); AST (SGOT) 32 U/L (5-34); Albumin 3.7 g/dL (3.5-5.0); Alkaline Phosphatase 110 U/L (40-110); Bilirubin, Direct 0.5 mg/dL (0.1-0.3); Bilirubin, Total 0.8 mg/dL (0.2-1.2); Protein, Total 5.9 g/dL (6.0-8.3)
[2021-06-23] MEDS: Montelukast Sodium 10 mg Tablet PO SCH (20:20)
[2021-06-23] MEDS: Atorvastatin Calcium 10 MG TAB PO SCH (20:20)
[2021-06-23] MEDS ORDERED: Simvastatin 20 MG TAB PO SCH (21:00)
[2021-06-24 05:10] LABS: #Eosinphils 0.1 thou/uL (0.0-0.7); #Lymphocytes 0.7 thou/uL (1.20-3.40); #Monocytes 0.3 thou/uL (0.11-0.59); #Neutrophils 4.6 thou/uL (1.40-6.50); %Lymphocytes 12.2 % (21.0-51.0); %Monocytes 5.2 % (0.0-10.0); %Neutrophils 81.7 % (42.0-75.0); Hemoglobin 8.1 g/dL (12.0-16.0); Mean Corpuscular HGB CONC 32.1 g/dL (32.0-36.0); Mean Corpuscular Hemoglobin 31.5 pg (27.0-31.0); Mean Corpuscular Volume 98.3 fL (78.0-98.0); Mean Platelet Volume 8.2 fL (7.4-10.4); Platelet Count 126 thou/uL (130-400); RBC Distribution Width 15.4 % (11.5-14.5); Red Blood Cell (RBC) Count 2.57 mill/uL (4.20-5.40); White Blood Cell (WBC) Count 5.7 thou/uL (4.8-10.8)
[2021-06-24 05:24] LABS: ALT (SGPT) 18 U/L (8-55); AST (SGOT) 24 U/L (5-34); Albumin 3.5 g/dL (3.5-5.0); Alkaline Phosphatase 99 U/L (40-110); Anion Gap 15 mmol/L (10-20); BUN (Urea Nitrogen) 38 mg/dL (9.8-20.1); Bilirubin, Total 0.8 mg/dL (0.2-1.2); Calc. Creatinine Clearance 26 mL/min (70-130); Calcium 8.5 mg/dL (7.8-10.44); Carbon Dioxide 28 mmol/L (22-29); Chloride 101 mmol/L (98-107); Globulin 2.1 g/dL (2.4-3.5); Glucose 119 mg/dL (70-105); Protein, Total 5.6 g/dL (6.0-8.3); Sodium 140 mmol/L (136-145)
[2021-06-24] MEDS: Tetrahydrozoline 0.05% OPTH 15 ML BOT R EYE SCH ×2 (07:15→21:26)
[2021-06-24] MEDS: hydrALAZINE 25 MG TAB PO SCH ×3 (09:15→21:24)
[2021-06-24] MEDS: Heparin 5,000 UNITS/ML VIAL SC SCH ×3 (09:15→21:25)
[2021-06-24] MEDS ORDERED: CEFAZOLIN 2 GM in Premix Bag 1 BAG IVPB SCH (09:30)
[2021-06-24] MEDS ORDERED: Heparin 10,000 UNITS/ 10 ML VIAL ONE (10:50)
[2021-06-24] MEDS ORDERED: ceFAZolin Sodium/D5W 2 GM in Premix Bag 1 BAG IVPB SCH (13:15)
[2021-06-24] MEDS: Polyethylene Glycol 3350 17 GM Packet PER TUBE SCH (14:24)
[2021-06-24] MEDS: methylPREDNISolone Sod Succ 40 MG VIAL IVP SCH ×2 (14:24→21:25)
[2021-06-24] MEDS: Senokot S 8.6-50 MG TAB PO SCH ×2 (14:26→21:23)
[2021-06-24] MEDS: Gabapentin 300 MG CAP PO SCH ×2 (14:26→21:24)
[2021-06-24] MEDS: Sevelamer Carbonate 800 MG TAB PO SCH ×2 (14:27→17:01)
[2021-06-24] MEDS: Carvedilol 6.25 MG TAB PO SCH ×2 (14:27→21:24)
[2021-06-24] MEDS: Montelukast Sodium 10 mg Tablet PO SCH (21:23)
[2021-06-24] MEDS: Atorvastatin Calcium 10 MG TAB PO SCH (21:24)
[2021-06-25] MEDS ORDERED: READ PPD TEST SITE PO SCH (09:00)
[2021-06-25] MEDS: Calcitriol 0.25 MCG CAP PO SCH (09:05)
[2021-06-25] MEDS: Gabapentin 300 MG CAP PO SCH ×2 (09:05→20:45)
[2021-06-25] MEDS: hydrALAZINE 25 MG TAB PO SCH ×3 (09:06→20:45)
[2021-06-25] MEDS: Senokot S 8.6-50 MG TAB PO SCH ×2 (09:08→20:44)
[2021-06-25] MEDS: Sevelamer Carbonate 800 MG TAB PO SCH ×3 (09:08→17:31)
[2021-06-25] MEDS: Heparin 5,000 UNITS/ML VIAL SC SCH ×3 (09:08→20:47)
[2021-06-25] MEDS: Carvedilol 6.25 MG TAB PO SCH ×2 (09:08→20:44)
[2021-06-25] MEDS: methylPREDNISolone Sod Succ 40 MG VIAL IVP SCH ×2 (09:09→20:44)
[2021-06-25] MEDS: Polyethylene Glycol 3350 17 GM Packet PER TUBE SCH (09:09)
[2021-06-25] MEDS: Tetrahydrozoline 0.05% OPTH 15 ML BOT R EYE SCH ×2 (09:10→20:45)
[2021-06-25 09:47] LABS: #Basophils 0.1 thou/uL (0.0-0.2); #Eosinphils 0.1 thou/uL (0.0-0.7); #Lymphocytes 0.8 thou/uL (1.20-3.40); #Monocytes 0.5 thou/uL (0.11-0.59); %Basophils 0.9 % (0.0-1.0); %Eosinophils 1.6 % (0.0-10.0); %Lymphocytes 12.2 % (21.0-51.0); %Monocytes 7.3 % (0.0-10.0); Hemoglobin 8.7 g/dL (12.0-16.0); Mean Corpuscular HGB CONC 31.8 g/dL (32.0-36.0); Mean Corpuscular Hemoglobin 31.6 pg (27.0-31.0); Mean Corpuscular Volume 99.3 fL (78.0-98.0); Mean Platelet Volume 8.1 fL (7.4-10.4); Platelet Count 120 thou/uL (130-400); RBC Distribution Width 15.6 % (11.5-14.5); Red Blood Cell (RBC) Count 2.76 mill/uL (4.20-5.40); White Blood Cell (WBC) Count 6.4 thou/uL (4.8-10.8)
[2021-06-25 10:27] LABS: Albumin 3.7 g/dL (3.5-5.0)
[2021-06-25 10:28] LABS: Chloride 101 mmol/L (98-107); Potassium 3.8 mmol/L (3.5-5.1); Sodium 140 mmol/L (136-145)
[2021-06-25 10:29] LABS: Calcium 8.6 mg/dL (7.8-10.44); Globulin 2.3 g/dL (2.4-3.5); Glucose 137 mg/dL (70-105)
[2021-06-25 10:31] LABS: Anion Gap 14 mmol/L (10-20); Bilirubin, Total 0.7 mg/dL (0.2-1.2); Carbon Dioxide 29 mmol/L (22-29)
[2021-06-25 10:32] LABS: Alkaline Phosphatase 94 U/L (40-110); Calc. Creatinine Clearance 31 mL/min (70-130)
[2021-06-25 10:33] LABS: BUN (Urea Nitrogen) 25 mg/dL (9.8-20.1)
[2021-06-25 10:34] LABS: AST (SGOT) 25 U/L (5-34)
[2021-06-25 10:35] LABS: ALT (SGPT) 11 U/L (8-55)
[2021-06-25] MEDS: Montelukast Sodium 10 mg Tablet PO SCH (20:45)
[2021-06-25] MEDS: Atorvastatin Calcium 10 MG TAB PO SCH (20:45)
[2021-06-26] MEDS ORDERED: Fentanyl 100 MCG/2 ML VIAL ONE ×2 (06:01→07:16)
[2021-06-26 06:36] LABS: #Lymphocytes 0.7 thou/uL (1.20-3.40); #Monocytes 0.2 thou/uL (0.11-0.59); #Neutrophils 4.3 thou/uL (1.40-6.50); %Basophils 0.2 % (0.0-1.0); %Eosinophils 0.9 % (0.0-10.0); %Lymphocytes 13.5 % (21.0-51.0); %Monocytes 3.3 % (0.0-10.0); %Neutrophils 82.1 % (42.0-75.0); Hemoglobin 8.4 g/dL (12.0-16.0); Mean Corpuscular HGB CONC 31.4 g/dL (32.0-36.0); Mean Corpuscular Hemoglobin 31.2 pg (27.0-31.0); Mean Corpuscular Volume 99.6 fL (78.0-98.0); Mean Platelet Volume 8.3 fL (7.4-10.4); Platelet Count 125 thou/uL (130-400); RBC Distribution Width 15.4 % (11.5-14.5); White Blood Cell (WBC) Count 5.2 thou/uL (4.8-10.8)
[2021-06-26] MEDS ORDERED: Sodium Chloride 0.9% 20 ML ONE (06:41)
[2021-06-26] MEDS ORDERED: Bupivacaine PF 0.5% 30 ML VIAL ONE (06:41)
[2021-06-26] MEDS ORDERED: Heparin 5,000 UNITS/ML VIAL ONE (06:41)
[2021-06-26] MEDS ORDERED: Lidocaine 2% PF 5 ML VIAL ONE (06:41)
[2021-06-26] MEDS ORDERED: EPINEPHrine 1 MG/ML AMP ONE (06:41)
[2021-06-26] MEDS ORDERED: Protamine Sulfate 50 MG/5 ML VIAL ONE (06:41)
[2021-06-26] MEDS ORDERED: Heparin 10,000 UNITS/ 10 ML VIAL ONE (06:41)
[2021-06-26] MEDS ORDERED: ceFAZolin 2 GM/DEX 5% 100 ML BAG ONE (06:44)
[2021-06-26 06:55] LABS: Anion Gap 13 mmol/L (10-20); BUN (Urea Nitrogen) 35 mg/dL (9.8-20.1); Calc. Creatinine Clearance 25 mL/min (70-130); Calcium 8.7 mg/dL (7.8-10.44); Carbon Dioxide 31 mmol/L (22-29); Chloride 101 mmol/L (98-107); Glucose 135 mg/dL (70-105); Potassium 4.3 mmol/L (3.5-5.1); Sodium 141 mmol/L (136-145)
[2021-06-26] MEDS ORDERED: Midazolam HCl 2 mg/2 ml Vial ONE (07:31)
[2021-06-26] MEDS ORDERED: Bupivacaine HCl 0.5%/Epinephrine 1:200,000/PF 30 ml Vial ONE (07:50)
[2021-06-26] MEDS ORDERED: Ondansetron PF 4 MG/2 ML Vial ONE (07:50)
[2021-06-26] MEDS ORDERED: traMADol HCl 50 MG TAB PO PRN (09:34)
[2021-06-26] MEDS: Heparin 5,000 UNITS/ML VIAL SC SCH ×3 (10:21→20:53)
[2021-06-26] MEDS: Sevelamer Carbonate 800 MG TAB PO SCH ×3 (10:21→17:15)
[2021-06-26] MEDS: hydrALAZINE 25 MG TAB PO SCH ×3 (10:21→20:54)
[2021-06-26] MEDS: Senokot S 8.6-50 MG TAB PO SCH ×2 (11:07→20:54)
[2021-06-26] MEDS: Gabapentin 300 MG CAP PO SCH ×2 (11:08→20:54)
[2021-06-26] MEDS: Calcitriol 0.25 MCG CAP PO SCH (11:08)
[2021-06-26] MEDS: Carvedilol 6.25 MG TAB PO SCH ×2 (11:08→20:54)
[2021-06-26] MEDS: methylPREDNISolone Sod Succ 40 MG VIAL IVP SCH ×2 (11:08→20:53)
[2021-06-26] MEDS: Tetrahydrozoline 0.05% OPTH 15 ML BOT R EYE SCH ×2 (11:15→20:55)
[2021-06-26] MEDS: Polyethylene Glycol 3350 17 GM Packet PER TUBE SCH (11:15)
[2021-06-26] MEDS: Montelukast Sodium 10 mg Tablet PO SCH (20:54)
[2021-06-26] MEDS: Atorvastatin Calcium 10 MG TAB PO SCH (20:55)
[2021-06-27 05:20] LABS: #Lymphocytes 0.5 thou/uL (1.20-3.40); #Monocytes 0.3 thou/uL (0.11-0.59); #Neutrophils 4.5 thou/uL (1.40-6.50); %Basophils 0.1 % (0.0-1.0); %Eosinophils 0.5 % (0.0-10.0); %Monocytes 5.7 % (0.0-10.0); %Neutrophils 83.7 % (42.0-75.0); Hemoglobin 7.8 g/dL (12.0-16.0); Mean Corpuscular HGB CONC 31.1 g/dL (32.0-36.0); Mean Corpuscular Hemoglobin 30.9 pg (27.0-31.0); Mean Corpuscular Volume 99.4 fL (78.0-98.0); Mean Platelet Volume 8.3 fL (7.4-10.4); Platelet Count 108 thou/uL (130-400); RBC Distribution Width 15.5 % (11.5-14.5); White Blood Cell (WBC) Count 5.4 thou/uL (4.8-10.8)
[2021-06-27 05:25] LABS: Anion Gap 16 mmol/L (10-20); BUN (Urea Nitrogen) 48 mg/dL (9.8-20.1); Calc. Creatinine Clearance 21 mL/min (70-130); Calcium 8.3 mg/dL (7.8-10.44); Carbon Dioxide 27 mmol/L (22-29); Chloride 102 mmol/L (98-107); Glucose 198 mg/dL (70-105); Potassium 4.6 mmol/L (3.5-5.1); Sodium 140 mmol/L (136-145)
[2021-06-27] MEDS ORDERED: Heparin 10,000 UNITS/ 10 ML VIAL ONE ×2 (10:26→11:41)
[2021-06-27] MEDS: Calcitriol 0.25 MCG CAP PO SCH (13:46)
[2021-06-27] MEDS: Carvedilol 6.25 MG TAB PO SCH ×2 (13:46→20:35)
[2021-06-27] MEDS: Gabapentin 300 MG CAP PO SCH ×2 (13:46→20:35)
[2021-06-27] MEDS: Sevelamer Carbonate 800 MG TAB PO SCH ×3 (13:46→17:29)
[2021-06-27] MEDS: methylPREDNISolone Sod Succ 40 MG VIAL IVP SCH ×2 (13:47→20:35)
[2021-06-27] MEDS: Heparin 5,000 UNITS/ML VIAL SC SCH ×3 (13:47→21:13)
[2021-06-27] MEDS: hydrALAZINE 25 MG TAB PO SCH ×3 (13:47→20:34)
[2021-06-27] MEDS: Polyethylene Glycol 3350 17 GM Packet PER TUBE SCH (13:48)
[2021-06-27] MEDS: Tetrahydrozoline 0.05% OPTH 15 ML BOT R EYE SCH ×2 (13:48→20:37)
[2021-06-27] MEDS: EPOETIN ALFA-EPBX (ESRD) 4,000 UNIT/ML VIAL SC SCH (13:48)
[2021-06-27] MEDS: Senokot S 8.6-50 MG TAB PO SCH ×2 (13:48→20:35)
[2021-06-27 17:31] LABS: Hep B Core Total Ab Non-Reactive (NonReactive); Hep B Core Total Index 0.05 S/CO (0-0.79)
[2021-06-27] MEDS: Atorvastatin Calcium 10 MG TAB PO SCH (20:34)
[2021-06-27] MEDS: Montelukast Sodium 10 mg Tablet PO SCH (20:34)
[2021-06-28 05:44] LABS: #Eosinphils 0.1 thou/uL (0.0-0.7); #Lymphocytes 0.8 thou/uL (1.20-3.40); #Monocytes 0.4 thou/uL (0.11-0.59); #Neutrophils 3.6 thou/uL (1.40-6.50); %Basophils 0.2 % (0.0-1.0); %Eosinophils 1.6 % (0.0-10.0); %Lymphocytes 16.1 % (21.0-51.0); %Monocytes 8.2 % (0.0-10.0); %Neutrophils 73.8 % (42.0-75.0); Hemoglobin 7.6 g/dL (12.0-16.0); Mean Corpuscular HGB CONC 30.7 g/dL (32.0-36.0); Mean Corpuscular Hemoglobin 30.9 pg (27.0-31.0); Mean Platelet Volume 8.3 fL (7.4-10.4); Platelet Count 99 thou/uL (130-400); RBC Distribution Width 15.4 % (11.5-14.5); Red Blood Cell (RBC) Count 2.44 mill/uL (4.20-5.40); White Blood Cell (WBC) Count 4.8 thou/uL (4.8-10.8)
[2021-06-28] MEDS: methylPREDNISolone Sod Succ 40 MG VIAL IVP SCH ×2 (08:16→21:21)
[2021-06-28] MEDS: Gabapentin 300 MG CAP PO SCH ×2 (08:16→21:20)
[2021-06-28] MEDS: hydrALAZINE 25 MG TAB PO SCH ×3 (08:17→21:21)
[2021-06-28] MEDS: Calcitriol 0.25 MCG CAP PO SCH (08:17)
[2021-06-28] MEDS: Heparin 5,000 UNITS/ML VIAL SC SCH ×3 (08:17→21:19)
[2021-06-28] MEDS: Senokot S 8.6-50 MG TAB PO SCH ×2 (08:17→21:22)
[2021-06-28] MEDS: Carvedilol 6.25 MG TAB PO SCH ×2 (08:17→21:20)
[2021-06-28] MEDS: Sevelamer Carbonate 800 MG TAB PO SCH ×3 (08:18→17:14)
[2021-06-28] MEDS: Polyethylene Glycol 3350 17 GM Packet PER TUBE SCH (08:18)
[2021-06-28] MEDS: Tetrahydrozoline 0.05% OPTH 15 ML BOT R EYE SCH ×2 (08:18→21:23)
[2021-06-28 09:57] VITALS: BMI 46.3
[2021-06-28] MEDS: Atorvastatin Calcium 10 MG TAB PO SCH (21:20)
[2021-06-28] MEDS: Montelukast Sodium 10 mg Tablet PO SCH (21:22)
[2021-06-29 05:49] LABS: #Lymphocytes 0.6 thou/uL (1.20-3.40); #Monocytes 0.3 thou/uL (0.11-0.59); #Neutrophils 3.9 thou/uL (1.40-6.50); %Basophils 0.6 % (0.0-1.0); %Eosinophils 0.5 % (0.0-10.0); %Lymphocytes 11.7 % (21.0-51.0); %Monocytes 6.6 % (0.0-10.0); %Neutrophils 80.6 % (42.0-75.0); Hemoglobin 7.4 g/dL (12.0-16.0); Mean Corpuscular HGB CONC 31.8 g/dL (32.0-36.0); Mean Platelet Volume 8.4 fL (7.4-10.4); Platelet Count 93 thou/uL (130-400); RBC Distribution Width 15.2 % (11.5-14.5); Red Blood Cell (RBC) Count 2.32 mill/uL (4.20-5.40); White Blood Cell (WBC) Count 4.9 thou/uL (4.8-10.8)
[2021-06-29] MEDS: Heparin 5,000 UNITS/ML VIAL SC SCH ×2 (09:09→16:27)
[2021-06-29] MEDS: hydrALAZINE 25 MG TAB PO SCH ×3 (09:09→22:44)
[2021-06-29] MEDS: Carvedilol 6.25 MG TAB PO SCH ×2 (09:09→22:45)
[2021-06-29] MEDS: Sevelamer Carbonate 800 MG TAB PO SCH ×3 (09:09→17:36)
[2021-06-29] MEDS: Gabapentin 300 MG CAP PO SCH ×2 (09:09→22:45)
[2021-06-29] MEDS: Senokot S 8.6-50 MG TAB PO SCH ×2 (11:28→22:55)
[2021-06-29] MEDS: methylPREDNISolone Sod Succ 40 MG VIAL IVP SCH ×2 (11:28→22:52)
[2021-06-29] MEDS: Tetrahydrozoline 0.05% OPTH 15 ML BOT R EYE SCH ×2 (11:28→22:52)
[2021-06-29 13:26] LABS: #Eosinphils 0.1 thou/uL (0.0-0.7); #Monocytes 0.4 thou/uL (0.11-0.59); #Neutrophils 3.9 thou/uL (1.40-6.50); %Basophils 0.1 % (0.0-1.0); %Eosinophils 1.3 % (0.0-10.0); %Lymphocytes 18.8 % (21.0-51.0); %Monocytes 7.6 % (0.0-10.0); %Neutrophils 72.2 % (42.0-75.0); Hemoglobin 7.9 g/dL (12.0-16.0); Mean Corpuscular HGB CONC 31.3 g/dL (32.0-36.0); Mean Corpuscular Hemoglobin 31.6 pg (27.0-31.0); Mean Platelet Volume 9.1 fL (7.4-10.4); Platelet Count 106 thou/uL (130-400); RBC Distribution Width 15.3 % (11.5-14.5); Red Blood Cell (RBC) Count 2.49 mill/uL (4.20-5.40); White Blood Cell (WBC) Count 5.4 thou/uL (4.8-10.8)
[2021-06-29] MEDS: Polyethylene Glycol 3350 17 GM Packet PER TUBE SCH (13:52)
[2021-06-29] MEDS: Calcitriol 0.25 MCG CAP PO SCH (13:53)
[2021-06-29 13:54] LABS: Anion Gap 14 mmol/L (10-20); BUN (Urea Nitrogen) 30 mg/dL (9.8-20.1); Calc. Creatinine Clearance 29 mL/min (70-130); Calcium 8.5 mg/dL (7.8-10.44); Carbon Dioxide 30 mmol/L (22-29); Chloride 102 mmol/L (98-107); Glucose 123 mg/dL (70-105); Potassium 3.9 mmol/L (3.5-5.1); Sodium 142 mmol/L (136-145)
[2021-06-29] MEDS ORDERED: Heparin 10,000 UNITS/ 10 ML VIAL ONE (14:15)
[2021-06-29] MEDS: HumaLOG 300 UNITS/3 ML VIAL SC PRN (17:36)
[2021-06-29] MEDS: Atorvastatin Calcium 10 MG TAB PO SCH (22:46)
[2021-06-29] MEDS: Montelukast Sodium 10 mg Tablet PO SCH (22:46)
[2021-06-30] MEDS: HumaLOG 300 UNITS/3 ML VIAL SC PRN ×2 (06:36→17:15)
[2021-06-30 07:07] LABS: #Lymphocytes 0.4 thou/uL (1.20-3.40); #Monocytes 0.2 thou/uL (0.11-0.59); #Neutrophils 4.1 thou/uL (1.40-6.50); %Basophils 0.2 % (0.0-1.0); %Eosinophils 0.3 % (0.0-10.0); %Lymphocytes 8.6 % (21.0-51.0); %Neutrophils 86.9 % (42.0-75.0); Hemoglobin 7.5 g/dL (12.0-16.0); Mean Corpuscular HGB CONC 32.4 g/dL (32.0-36.0); Mean Corpuscular Hemoglobin 32.6 pg (27.0-31.0); Mean Platelet Volume 9.1 fL (7.4-10.4); Platelet Count 105 thou/uL (130-400); RBC Distribution Width 14.9 % (11.5-14.5); White Blood Cell (WBC) Count 4.7 thou/uL (4.8-10.8)
[2021-06-30] MEDS: Gabapentin 300 MG CAP PO SCH ×2 (09:16→21:45)
[2021-06-30] MEDS: Sevelamer Carbonate 800 MG TAB PO SCH ×3 (09:16→17:15)
[2021-06-30] MEDS: Senokot S 8.6-50 MG TAB PO SCH ×2 (09:17→21:46)
[2021-06-30] MEDS: Carvedilol 6.25 MG TAB PO SCH ×2 (09:17→21:45)
[2021-06-30] MEDS: hydrALAZINE 25 MG TAB PO SCH ×3 (09:18→21:46)
[2021-06-30] MEDS: Calcitriol 0.25 MCG CAP PO SCH (09:19)
[2021-06-30] MEDS: methylPREDNISolone Sod Succ 40 MG VIAL IVP SCH ×2 (09:20→21:44)
[2021-06-30] MEDS: Polyethylene Glycol 3350 17 GM Packet PER TUBE SCH (09:20)
[2021-06-30] MEDS: Tetrahydrozoline 0.05% OPTH 15 ML BOT R EYE SCH ×2 (09:21→21:46)
[2021-06-30] MEDS: Atorvastatin Calcium 10 MG TAB PO SCH (21:45)
[2021-06-30] MEDS: Montelukast Sodium 10 mg Tablet PO SCH (21:45)
[2021-07-01 01:38] LABS: SARS-CoV-2 PCR by NAA Not Detected (NotDetected)
[2021-07-01] MEDS: Calcitriol 0.25 MCG CAP PO SCH (08:13)
[2021-07-01] MEDS: Carvedilol 6.25 MG TAB PO SCH ×2 (08:13→22:14)
[2021-07-01] MEDS: Sevelamer Carbonate 800 MG TAB PO SCH ×3 (08:13→18:17)
[2021-07-01] MEDS: Gabapentin 300 MG CAP PO SCH ×2 (08:15→22:13)
[2021-07-01] MEDS: hydrALAZINE 25 MG TAB PO SCH ×3 (08:17→22:13)
[2021-07-01] MEDS: Tetrahydrozoline 0.05% OPTH 15 ML BOT R EYE SCH ×2 (08:18→22:25)
[2021-07-01] MEDS: Senokot S 8.6-50 MG TAB PO SCH ×2 (08:18→22:13)
[2021-07-01] MEDS: Polyethylene Glycol 3350 17 GM Packet PER TUBE SCH (08:18)
[2021-07-01] MEDS: methylPREDNISolone Sod Succ 40 MG VIAL IVP SCH ×2 (08:26→22:25)
[2021-07-01 08:33] LABS: #Eosinphils 0.1 thou/uL (0.0-0.7); #Lymphocytes 0.8 thou/uL (1.20-3.40); #Monocytes 0.3 thou/uL (0.11-0.59); #Neutrophils 5.2 thou/uL (1.40-6.50); %Basophils 0.1 % (0.0-1.0); %Eosinophils 0.8 % (0.0-10.0); %Lymphocytes 12.3 % (21.0-51.0); %Monocytes 5.2 % (0.0-10.0); %Neutrophils 81.6 % (42.0-75.0); Hemoglobin 7.9 g/dL (12.0-16.0); Mean Corpuscular HGB CONC 31.8 g/dL (32.0-36.0); Mean Corpuscular Hemoglobin 31.8 pg (27.0-31.0); Mean Platelet Volume 8.7 fL (7.4-10.4); Platelet Count 127 thou/uL (130-400); Red Blood Cell (RBC) Count 2.47 mill/uL (4.20-5.40); White Blood Cell (WBC) Count 6.4 thou/uL (4.8-10.8)
[2021-07-01] MEDS ORDERED: Heparin 10,000 UNITS/ 10 ML VIAL ONE (14:22)
[2021-07-01] MEDS: HumaLOG 300 UNITS/3 ML VIAL SC PRN (18:44)
[2021-07-01] MEDS: Atorvastatin Calcium 10 MG TAB PO SCH (22:14)
[2021-07-01] MEDS: Montelukast Sodium 10 mg Tablet PO SCH (22:15)
[2021-07-02 06:54] LABS: #Lymphocytes 0.7 thou/uL (1.20-3.40); #Monocytes 0.3 thou/uL (0.11-0.59); #Neutrophils 4.7 thou/uL (1.40-6.50); %Basophils 0.4 % (0.0-1.0); %Eosinophils 0.5 % (0.0-10.0); %Lymphocytes 12.1 % (21.0-51.0); %Monocytes 4.3 % (0.0-10.0); %Neutrophils 82.7 % (42.0-75.0); Hemoglobin 7.7 g/dL (12.0-16.0); Mean Corpuscular HGB CONC 31.3 g/dL (32.0-36.0); Mean Corpuscular Hemoglobin 31.7 pg (27.0-31.0); Mean Platelet Volume 8.7 fL (7.4-10.4); Platelet Count 134 thou/uL (130-400); RBC Distribution Width 14.9 % (11.5-14.5); Red Blood Cell (RBC) Count 2.42 mill/uL (4.20-5.40); White Blood Cell (WBC) Count 5.7 thou/uL (4.8-10.8)
[2021-07-02 07:12] LABS: Anion Gap 11 mmol/L (10-20); BUN (Urea Nitrogen) 23 mg/dL (9.8-20.1); Calc. Creatinine Clearance 32 mL/min (70-130); Calcium 8.7 mg/dL (7.8-10.44); Carbon Dioxide 32 mmol/L (22-29); Chloride 101 mmol/L (98-107); Glucose 202 mg/dL (70-105); Potassium 4.7 mmol/L (3.5-5.1); Sodium 139 mmol/L (136-145)
[2021-07-02] MEDS: Sevelamer Carbonate 800 MG TAB PO SCH ×3 (08:38→17:15)
[2021-07-02] MEDS: hydrALAZINE 25 MG TAB PO SCH ×3 (08:39→22:13)
[2021-07-02] MEDS: Carvedilol 6.25 MG TAB PO SCH ×2 (08:39→22:13)
[2021-07-02] MEDS: Senokot S 8.6-50 MG TAB PO SCH ×3 (08:39→22:13)
[2021-07-02] MEDS: Calcitriol 0.25 MCG CAP PO SCH (08:39)
[2021-07-02] MEDS: Gabapentin 300 MG CAP PO SCH ×2 (08:40→22:12)
[2021-07-02] MEDS: methylPREDNISolone Sod Succ 40 MG VIAL IVP SCH (08:41)
[2021-07-02] MEDS: Polyethylene Glycol 3350 17 GM Packet PER TUBE SCH (08:44)
[2021-07-02] MEDS: Tetrahydrozoline 0.05% OPTH 15 ML BOT R EYE SCH ×2 (08:44→22:14)
[2021-07-02] MEDS: HumaLOG 300 UNITS/3 ML VIAL SC PRN ×2 (12:05→17:16)
[2021-07-02] MEDS: Montelukast Sodium 10 mg Tablet PO SCH (22:11)
[2021-07-02] MEDS: Atorvastatin Calcium 10 MG TAB PO SCH (22:12)
[2021-07-03] MEDS: hydrALAZINE 25 MG TAB PO SCH ×3 (07:56→20:03)
[2021-07-03] MEDS: Calcitriol 0.25 MCG CAP PO SCH (07:57)
[2021-07-03] MEDS: Carvedilol 6.25 MG TAB PO SCH ×2 (07:57→20:04)
[2021-07-03] MEDS: Sevelamer Carbonate 800 MG TAB PO SCH ×3 (07:57→17:00)
[2021-07-03] MEDS: Gabapentin 300 MG CAP PO SCH ×2 (07:57→20:03)
[2021-07-03] MEDS: Senokot S 8.6-50 MG TAB PO SCH ×2 (07:58→20:02)
[2021-07-03] MEDS: Tetrahydrozoline 0.05% OPTH 15 ML BOT R EYE SCH ×2 (07:58→20:05)
[2021-07-03] MEDS: Polyethylene Glycol 3350 17 GM Packet PER TUBE SCH (07:58)
[2021-07-03] MEDS ORDERED: predniSONE 20 MG TAB PO SCH (08:00)
[2021-07-03] MEDS ORDERED: Heparin 10,000 UNITS/ 10 ML VIAL ONE (08:45)
[2021-07-03 12:54] VITALS: TEMP 97.6
[2021-07-03] MEDS: Atorvastatin Calcium 10 MG TAB PO SCH (20:03)
[2021-07-03] MEDS: Montelukast Sodium 10 mg Tablet PO SCH (20:03)
[2021-07-03 20:06] VITALS: BP 153/73
== END 2021-07-03 20:06 | disposition home or self-care (01) | DRG 673 ==
LOC: CCU 18:40 → 2NO 06-22 11:59 → T4-A 06-28 22:45
PROVIDERS: ADMIT Internal Medicine; ATTEND Family Medicine
PROC: 3E033XZ Introduction of Vasopressor into Peripheral Vein, Percutaneous Approach (ICD-10-PCS; 2021-06-18)
PROC: 5A09357 Assistance with Respiratory Ventilation, Less than 24 Consecutive Hours, Continuous Positive Airway Pressure (ICD-10-PCS; 2021-06-18)
PROC: 0BH18EZ Insertion of Endotracheal Airway into Trachea, Via Natural or Artificial Opening Endoscopic (ICD-10-PCS; 2021-06-19)
PROC: 06HY33Z Insertion of Infusion Device into Lower Vein, Percutaneous Approach (ICD-10-PCS; 2021-06-19)
PROC: 5A1945Z Respiratory Ventilation, 24-96 Consecutive Hours (ICD-10-PCS; 2021-06-23)
PROC: 5A1D70Z Performance of Urinary Filtration, Intermittent, Less than 6 Hours Per Day (ICD-10-PCS; 2021-06-24)
PROC: 031C0ZF Bypass Left Radial Artery to Lower Arm Vein, Open Approach (ICD-10-PCS; principal; 2021-06-26)
PROC: 0JH60XZ Insertion of Tunneled Vascular Access Device into Chest Subcutaneous Tissue and Fascia, Open Approach (ICD-10-PCS; 2021-06-26)
PROC: 02HV33Z Insertion of Infusion Device into Superior Vena Cava, Percutaneous Approach (ICD-10-PCS; 2021-06-26)
PROC: B548ZZA Ultrasonography of Superior Vena Cava, Guidance (ICD-10-PCS; 2021-06-26)
PROC: B5181ZA Fluoroscopy of Superior Vena Cava using Low Osmolar Contrast, Guidance (ICD-10-PCS; 2021-06-26)
DX: N17.9 Acute kidney failure, unspecified (principal); J96.01 Acute respiratory failure with hypoxia; J96.02 Acute respiratory failure with hypercapnia; R57.8 Other shock; I12.0 Hypertensive chronic kidney disease with stage 5 chronic kidney disease or end stage renal disease; J44.1 Chronic obstructive pulmonary disease with (acute) exacerbation; E87.2 Acidosis; Z68.41 Body mass index [BMI] 40.0-44.9, adult; K52.1 Toxic gastroenteritis and colitis; N18.6 End stage renal disease; E11.22 Type 2 diabetes mellitus with diabetic chronic kidney disease; E78.5 Hyperlipidemia, unspecified; F17.210 Nicotine dependence, cigarettes, uncomplicated; R77.8 Other specified abnormalities of plasma proteins; D64.9 Anemia, unspecified; K21.9 Gastro-esophageal reflux disease without esophagitis; G47.33 Obstructive sleep apnea (adult) (pediatric); N25.81 Secondary hyperparathyroidism of renal origin; E11.42 Type 2 diabetes mellitus with diabetic polyneuropathy; E87.70 Fluid overload, unspecified; E87.5 Hyperkalemia; E66.01 Morbid (severe) obesity due to excess calories; T50.3X5A Adverse effect of electrolytic, caloric and water-balance agents, initial encounter; Z20.822 Contact with and (suspected) exposure to COVID-19; Z88.5 Allergy status to narcotic agent; Z88.8 Allergy status to other drugs, medicaments and biological substances; Z91.013 Allergy to seafood; Z79.4 Long term (current) use of insulin; Z79.51 Long term (current) use of inhaled steroids; Z79.899 Other long term (current) drug therapy
CPT/HCPCS: 36415; 36416; 36600; 71045; 80048; 80053; 82533; 82805; 83735; 83970; 84100; 84478; 84484; 85025; 86580; 86704; 86706; 87340; 90935; 93306; 93970; 94002; 94003; 94640; 94660; C1751; C1752; G0257; J0171; J1642; J1644; J1815; J2001; J2060; J2250; J2405; J2704; J2720; J2920; J3010; J7070; J7512; J7620; P9047; Q5105; S0020; U0003; U0005

== ENCOUNTER 2022-09-12 15:24 | Inpatient (IN) | payer OTHER ==
[2022-09-12] MEDS ORDERED: hydrALAZINE 20 MG/ML VIAL SLOW IVP PRN (16:46)
[2022-09-12 17:31] LABS: #Basophils 0.1 thou/uL (0.0-0.2); #Eosinphils 0.1 thou/uL (0.0-0.7); #Monocytes 0.4 thou/uL (0.11-0.59); #Neutrophils 8.9 thou/uL (1.40-6.50); %Basophils 0.8 % (0.0-1.0); %Eosinophils 0.7 % (0.0-10.0); %Lymphocytes 9.3 % (21.0-51.0); %Monocytes 4.2 % (0.0-10.0); %Neutrophils 84.9 % (42.0-75.0); Hemoglobin 12.1 g/dL (12.0-16.0); Mean Corpuscular HGB CONC 32.3 g/dL (32.0-36.0); Mean Corpuscular Hemoglobin 33.8 pg (27.0-31.0); Mean Platelet Volume 8.8 fL (7.4-10.4); Platelet Count 120 10x3/uL (130-400); RBC Distribution Width 14.4 % (11.5-14.5); Red Blood Cell (RBC) Count 3.57 mill/uL (4.20-5.40); White Blood Cell (WBC) Count 10.4 10x3/uL (4.8-10.8)
[2022-09-12] MEDS ORDERED: Dextrose 50% Abboject 50 ML SYRINGE SLOW IVP PRN (17:48)
[2022-09-12] MEDS ORDERED: FENTANYL 50 MCG/ML 1 ML VIAL SLOW IVP PRN (17:48)
[2022-09-12] MEDS ORDERED: Dextrose 5% in Water 1,000 ML IV PRN (17:48)
[2022-09-12] MEDS ORDERED: HumaLOG 300 UNITS/3 ML VIAL SC PRN (17:48)
[2022-09-12 17:49] LABS: Hemoglobin A1c 5.9 % (4.0-6.0)
[2022-09-12 17:51] LABS: Magnesium 2.3 mg/dL (1.6-2.6)
[2022-09-12 17:52] LABS: ALT (SGPT) Less than 7 U/L (8-55); AST (SGOT) 15 U/L (5-34); Albumin 4.1 g/dL (3.4-4.8); Alkaline Phosphatase 90 U/L (40-110); Anion Gap 21 mmol/L (10-20); BUN (Urea Nitrogen) 59 mg/dL (9.8-20.1); Bilirubin, Total 0.6 mg/dL (0.2-1.2); Calc. Creatinine Clearance 0 mL/min (70-130); Calcium 9.1 mg/dL (7.8-10.44); Carbon Dioxide 22 mmol/L (23-31); Chloride 100 mmol/L (98-107); Estimated GFR 5; Globulin 3.2 g/dL (2.4-3.5); Glucose 88 mg/dL (80-115); Potassium 5.9 mmol/L (3.5-5.1); Protein, Total 7.3 g/dL (5.8-8.1); Sodium 137 mmol/L (136-145)
[2022-09-12 18:13] LABS: CKMB 5.5 ng/mL (0-6.6)
[2022-09-12] MEDS ORDERED: Sodium Chloride 0.9% 250 ML IV SCH (18:15)
[2022-09-12 19:16] LABS: Analyzer IN Cardio ER; Base Excess (BEa) -5.4 mEq/L (-2.0 to +3.0); Calcium, Ionized (arterial) 1.16 mmol/L (1.12-1.30); Carboxyhemoglobin (COHb) 2.3 gm% (0.0-3.0); Hemoglobin (Hb) 12.5 g/dL (12.0-16.0); O2 Tension (PaO2), arterial 67.6 mmHg (> 80.0)
[2022-09-12] MEDS ORDERED: Rocuronium Bromide 10 MG/ML (10ML VIAL) ONE ×2 (19:30→19:32)
[2022-09-12] MEDS ORDERED: Ketamine 50 MG/ML (10ML VIAL) ONE (19:30)
[2022-09-12 19:46] LABS: pH, Arterial 7.06 (7.35-7.45)
[2022-09-12 19:47] LABS: CO2 Tension 97.6 mmHg (35.0-45.0); Potassium - ABG Lab 6.17 mmol/L (3.70-5.30)
[2022-09-12 19:48] LABS: Puncture Site RRA
[2022-09-12] MEDS ORDERED: Ventilator Sedation Protocol 1 EACH FS SCH (20:00)
[2022-09-12] MEDS ORDERED: Fentanyl CADD 100 ML IV SCH (20:00)
[2022-09-12 20:04] LABS: Actual Bicarbonate (HCO3a) 23.6 mEq/L (22-28); Analyzer IN Cardio ER; Base Excess (BEa) -5.6 mEq/L (-2.0 to +3.0); Calcium, Ionized (arterial) 1.12 mmol/L (1.12-1.30); Carboxyhemoglobin (COHb) 1.8 gm% (0.0-3.0); Hemoglobin (Hb) 11.9 g/dL (12.0-16.0); Potassium - ABG Lab 5.99 mmol/L (3.70-5.30)
[2022-09-12] MEDS ORDERED: Fentanyl BOLUS 250 ML IVPB PRN (20:15)
[2022-09-12] MEDS ORDERED: Propofol BOLUS 1,000 MG/100 ML VIAL IV PRN (20:15)
[2022-09-12] MEDS ORDERED: DISCONTINUE PREVIOUS NARCOTIC PAIN MEDICATIONS AND BENZODIAZEPINES FS SCH (20:15)
[2022-09-12] MEDS ORDERED: Morphine 4 MG/ML VIAL SLOW IVP PRN (20:15)
[2022-09-12 20:24] LABS: Bilirubin Negative (Negative); Blood, Urine 1+ (Negative); Clarity Turbid (Clear); Glucose, Urine (Dipstick) Normal (Negative); Ketone, Urine Negative (Negative); Leukocyte Negative Leu/uL (Negative); Nitrite Negative (Negative); Protein, Urine (Dipstick) 200 mg/dL (Neg-Trace); RBC/HPF 21-50 HPF (0-3); Squamous Epithelial 0-3 HPF (0-3); Urobilinogen Normal mg/dL (Less than 2); WBC/HPF 0-3 HPF (0-3); pH, Urine 5.5 (5.0-9.0)
[2022-09-12 20:26] LABS: pH, Arterial 7.18 (7.35-7.45)
[2022-09-12 20:27] LABS: CO2 Tension 65.4 mmHg (35.0-45.0); Puncture Site RRA
[2022-09-12 20:35] LABS: Bacteria/HPF 2+ HPF (None Seen)
[2022-09-12] MEDS: Midazolam HCl 2 mg/2 ml Vial SLOW IVP PRN (22:43)
[2022-09-12] MEDS: Propofol 1,000 MG/100 ML VIAL IV PRN (22:44)
[2022-09-12] MEDS ORDERED: Ipratropium/Albuterol 3 ML NEB EZPAP PRN (22:53)
[2022-09-12] MEDS: Atorvastatin Calcium 40 MG TAB PO SCH (23:18)
[2022-09-12] MEDS: Ipratropium/Albuterol 3 ML NEB EZPAP SCH (23:21)
[2022-09-13 00:16] LABS: Actual Bicarbonate (HCO3a) 22.4 mEq/L (22-28); Base Excess (BEa) -4.7 mEq/L (-2.0 to +3.0); CO2 Tension 50.2 mmHg (35.0-45.0); Calcium, Ionized (arterial) 1.11 mmol/L (1.12-1.30); Carboxyhemoglobin (COHb) 1.6 gm% (0.0-3.0); O2 Tension (PaO2), arterial 62.4 mmHg (> 80.0); Potassium - ABG Lab 5.63 mmol/L (3.70-5.30); pH, Arterial 7.27 (7.35-7.45)
[2022-09-13 00:19] LABS: Puncture Site RRA
[2022-09-13] MEDS: Ipratropium/Albuterol 3 ML NEB EZPAP SCH ×6 (03:08→22:20)
[2022-09-13 03:57] LABS: Cardiac Risk 3.4 (Less than 4.5)
[2022-09-13] MEDS: Propofol 1,000 MG/100 ML VIAL IV PRN (06:47)
[2022-09-13] MEDS: Aspirin 81 mg Enteric Coated Tablet PO SCH (09:59)
[2022-09-13] MEDS: Famotidine/PF 20 mg/2ml Vial SLOW IVP SCH (09:59)
[2022-09-13] MEDS ORDERED: Fentanyl CADD 100 ML ONE (13:13)
[2022-09-13] MEDS: Fentanyl CADD 100 ML IV SCH ×2 (13:38→23:30)
[2022-09-13 13:44] LABS: HBSAg Index 0.27 S/CO (0-0.99); Hep B Core Total Ab Non-Reactive (NonReactive); Hep B Core Total Index 0.08 S/CO (0-0.79); Hep B Surf Ag Non-Reactive S/CO (NonReactive); Hep C IgG Ab Non-Reactive (NonReactive); Hep C Index 0.15 S/CO (0-0.79)
[2022-09-13 13:54] LABS: Hep B Surf AB Reactive (NonReactive)
[2022-09-13] MEDS ORDERED: Albumin 25% 25 GM/100 ML BOT IVPB SCH (15:30)
[2022-09-13] MEDS ORDERED: Piperacillin/Tazobactam 3.375 GM in Sodium Chloride 0.9% 100 ML IVPB SCH ×3 (16:15→20:00)
[2022-09-13 17:30] LABS: Magnesium 2.1 mg/dL (1.6-2.6); Phosphorus 5.4 mg/dL (2.3-4.7)
[2022-09-13 20:16] LABS: Amphetamine Not Detected (NotDetected); Barbiturates Screen Not Detected (NotDetected); Benzodiazepine Screen Not Detected (NotDetected); Cocaine Metabolite Screen Not Detected (NotDetected); Methadone Not Detected (NotDetected); Methamphetamine Not Detected (NotDetected); Opiate Screen Detected (NotDetected); Oxycodone Screen Not Detected (NotDetected); Phencyclidine (PCP) Not Detected (NotDetected); THC/Cannabinoid Screen Not Detected (NotDetected); Tricyclic Screen Not Detected (NotDetected)
[2022-09-13] MEDS: Heparin 5,000 UNITS/ML VIAL SC SCH (20:46)
[2022-09-13] MEDS: Atorvastatin Calcium 40 MG TAB PO SCH (20:47)
[2022-09-13] MEDS: Midazolam HCl 2 mg/2 ml Vial SLOW IVP PRN ×2 (21:24→23:01)
[2022-09-13] MEDS: methylPREDNISolone Sod Succ 40 MG VIAL IVP SCH (21:24)
[2022-09-13] MEDS: Acetaminophen 325 MG TAB PO PRN (22:08)
[2022-09-14] MEDS: Midazolam HCl 2 mg/2 ml Vial SLOW IVP PRN ×4 (00:21→05:13)
[2022-09-14] MEDS: Piperacillin/Tazobactam 3.375 GM in Sodium Chloride 0.9% 100 ML IVPB SCH ×2 (00:23→12:00)
[2022-09-14] MEDS: Ipratropium/Albuterol 3 ML NEB EZPAP SCH ×7 (01:51→22:17)
[2022-09-14 04:42] LABS: Hemoglobin 10.8 g/dL (12.0-16.0); Mean Corpuscular HGB CONC 33.3 g/dL (32.0-36.0); Mean Corpuscular Hemoglobin 34.2 pg (27.0-31.0); Mean Platelet Volume 8.9 fL (7.4-10.4); Platelet Count 109 10x3/uL (130-400); RBC Distribution Width 14.1 % (11.5-14.5); Red Blood Cell (RBC) Count 3.17 mill/uL (4.20-5.40); White Blood Cell (WBC) Count 9.9 10x3/uL (4.8-10.8)
[2022-09-14 05:01] LABS: Anion Gap 24 mmol/L (10-20); BUN (Urea Nitrogen) 47 mg/dL (9.8-20.1); Calc. Creatinine Clearance 15 mL/min (70-130); Calcium 9.2 mg/dL (7.8-10.44); Carbon Dioxide 18 mmol/L (23-31); Chloride 98 mmol/L (98-107); Estimated GFR 6; Glucose 217 mg/dL (80-115); Potassium 4.4 mmol/L (3.5-5.1); Sodium 136 mmol/L (136-145)
[2022-09-14] MEDS: methylPREDNISolone Sod Succ 40 MG VIAL IVP SCH ×3 (05:15→21:23)
[2022-09-14] MEDS: HumaLOG 300 UNITS/3 ML VIAL SC PRN ×4 (05:47→21:29)
[2022-09-14 07:11] LABS: Actual Bicarbonate (HCO3a) 21.9 mEq/L (22-28); Base Excess (BEa) -3.7 mEq/L (-2.0 to +3.0); CO2 Tension 41.9 mmHg (35.0-45.0); Calcium, Ionized (arterial) 1.11 mmol/L (1.12-1.30); Carboxyhemoglobin (COHb) 1.2 gm% (0.0-3.0); Hemoglobin (Hb) 11.8 g/dL (12.0-16.0); O2 Tension (PaO2), arterial 72.2 mmHg (> 80.0); Potassium - ABG Lab 4.21 mmol/L (3.70-5.30); pH, Arterial 7.34 (7.35-7.45)
[2022-09-14 07:12] LABS: ALV-art Gradient 160.625 mmHg (0-20); Puncture Site RRA
[2022-09-14] MEDS ORDERED: Fentanyl CADD 100 ML ONE ×2 (09:02→18:59)
[2022-09-14] MEDS: Fentanyl CADD 100 ML IV SCH ×2 (09:06→19:04)
[2022-09-14] MEDS ORDERED: EPOETIN ALFA-EPBX (ESRD) 4,000 UNIT/ML VIAL SC SCH (09:15)
[2022-09-14] MEDS: Famotidine/PF 20 mg/2ml Vial SLOW IVP SCH (09:27)
[2022-09-14] MEDS: Heparin 5,000 UNITS/ML VIAL SC SCH ×2 (09:27→21:23)
[2022-09-14] MEDS: Aspirin 81 mg Enteric Coated Tablet PO SCH (09:27)
[2022-09-14] MEDS ORDERED: Albumin 25% 25 GM/100 ML BOT IVPB SCH (10:30)
[2022-09-14] MEDS: EPOETIN ALFA-EPBX (ESRD) 10,000 UNIT/ML VIAL SC SCH (11:06)
[2022-09-14] MEDS ORDERED: Albuterol 2.5 MG/0.5 ML NEB ONE ×2 (13:30→16:16)
[2022-09-14] MEDS ORDERED: Insulin NPH Human Isophane 100 UNIT/ML (10 ML VIAL) SC SCH (17:00)
[2022-09-14] MEDS ORDERED: Insulin Glargine 30 UNITS/0.3 ML VIAL SC SCH (21:00)
[2022-09-14] MEDS: Atorvastatin Calcium 40 MG TAB PO SCH (21:23)
[2022-09-15] MEDS: Ipratropium/Albuterol 3 ML NEB EZPAP SCH ×8 (00:25→22:05)
[2022-09-15] MEDS: Piperacillin/Tazobactam 3.375 GM in Sodium Chloride 0.9% 100 ML IVPB SCH ×2 (00:47→12:00)
[2022-09-15] MEDS: HumaLOG 300 UNITS/3 ML VIAL SC PRN ×3 (04:17→16:32)
[2022-09-15] MEDS ORDERED: Fentanyl CADD 100 ML ONE ×2 (05:02→15:12)
[2022-09-15] MEDS: Fentanyl CADD 100 ML IV SCH ×2 (05:05→15:14)
[2022-09-15] MEDS: Midazolam HCl 2 mg/2 ml Vial SLOW IVP PRN ×4 (05:36→23:55)
[2022-09-15] MEDS: methylPREDNISolone Sod Succ 40 MG VIAL IVP SCH ×3 (05:36→22:04)
[2022-09-15 06:31] LABS: Hemoglobin 11.3 g/dL (12.0-16.0); Mean Corpuscular HGB CONC 33.1 g/dL (32.0-36.0); Mean Corpuscular Hemoglobin 34.5 pg (27.0-31.0); Mean Platelet Volume 8.6 fL (7.4-10.4); Platelet Count 114 10x3/uL (130-400); Red Blood Cell (RBC) Count 3.29 mill/uL (4.20-5.40); White Blood Cell (WBC) Count 11.8 10x3/uL (4.8-10.8)
[2022-09-15 06:48] LABS: Anion Gap 19 mmol/L (10-20); BUN (Urea Nitrogen) 61 mg/dL (9.8-20.1); Calc. Creatinine Clearance 16 mL/min (70-130); Calcium 9.8 mg/dL (7.8-10.44); Carbon Dioxide 24 mmol/L (23-31); Chloride 96 mmol/L (98-107); Estimated GFR 6; Glucose 338 mg/dL (80-115); Potassium 5.1 mmol/L (3.5-5.1); Sodium 134 mmol/L (136-145)
[2022-09-15 07:06] LABS: Actual Bicarbonate (HCO3a) 25.1 mEq/L (22-28); Base Excess (BEa) -0.9 mEq/L (-2.0 to +3.0); CO2 Tension 46.9 mmHg (35.0-45.0); Calcium, Ionized (arterial) 1.15 mmol/L (1.12-1.30); Carboxyhemoglobin (COHb) 0.9 gm% (0.0-3.0); Hemoglobin (Hb) 11.6 g/dL (12.0-16.0); O2 Tension (PaO2), arterial 94.4 mmHg (> 80.0); Potassium - ABG Lab 5.03 mmol/L (3.70-5.30); pH, Arterial 7.35 (7.35-7.45)
[2022-09-15] MEDS ORDERED: Dextrose 5% in Water 1,000 ML IV PRN (08:03)
[2022-09-15 08:23] LABS: ALV-art Gradient 132.175 mmHg (0-20); Puncture Site RRA
[2022-09-15] MEDS: Aspirin 81 mg Enteric Coated Tablet PO SCH (09:58)
[2022-09-15] MEDS: Famotidine/PF 20 mg/2ml Vial SLOW IVP SCH (09:58)
[2022-09-15] MEDS: Heparin 5,000 UNITS/ML VIAL SC SCH ×2 (09:58→20:11)
[2022-09-15] MEDS: Insulin NPH Human Isophane 100 UNIT/ML (10 ML VIAL) SC SCH ×2 (11:11→22:04)
[2022-09-15] MEDS ORDERED: Albuterol 2.5 MG/0.5 ML NEB ONE (13:21)
[2022-09-15] MEDS ORDERED: Piperacillin/Tazobactam 3.375 GM in Sodium Chloride 0.9% 100 ML IVPB SCH (14:00)
[2022-09-15] MEDS: Insulin Regular 300 UNITS/3 ML VIAL SC PRN ×2 (16:38→22:06)
[2022-09-15] MEDS ORDERED: Polyethylene Glycol 3350 17 GM Packet PO SCH (18:00)
[2022-09-15] MEDS ORDERED: Amlodipine 5 MG TAB PO SCH (18:30)
[2022-09-15] MEDS: Dexmedetomidine 1,000 MCG in Sodium Chloride 0.9% 250 ML 240 ML IVPB SCH (18:48)
[2022-09-15] MEDS: cefTRIAXone\\ROCEPHIN 1 GM in Sodium Chloride 0.9% 100 ML IVPB SCH (20:11)
[2022-09-15] MEDS: Atorvastatin Calcium 40 MG TAB PO SCH (20:11)
[2022-09-16] MEDS: Ipratropium/Albuterol 3 ML NEB EZPAP SCH ×8 (01:06→22:27)
[2022-09-16] MEDS ORDERED: Fentanyl CADD 100 ML ONE (01:30)
[2022-09-16] MEDS: Fentanyl CADD 100 ML IV SCH ×2 (01:35→16:53)
[2022-09-16] MEDS: Propofol 1,000 MG/100 ML VIAL IV PRN ×2 (02:41→13:48)
[2022-09-16 04:20] LABS: Hemoglobin 11.6 g/dL (12.0-16.0); Mean Corpuscular HGB CONC 32.8 g/dL (32.0-36.0); Mean Platelet Volume 8.7 fL (7.4-10.4); Platelet Count 125 10x3/uL (130-400); RBC Distribution Width 13.6 % (11.5-14.5); Red Blood Cell (RBC) Count 3.41 mill/uL (4.20-5.40); White Blood Cell (WBC) Count 10.4 10x3/uL (4.8-10.8)
[2022-09-16 04:43] LABS: Anion Gap 18 mmol/L (10-20); BUN (Urea Nitrogen) 55 mg/dL (9.8-20.1); Calc. Creatinine Clearance 19 mL/min (70-130); Calcium 9.3 mg/dL (7.8-10.44); Carbon Dioxide 24 mmol/L (23-31); Chloride 96 mmol/L (98-107); Estimated GFR 8; Glucose 324 mg/dL (80-115); Potassium 5.4 mmol/L (3.5-5.1); Sodium 133 mmol/L (136-145)
[2022-09-16] MEDS: methylPREDNISolone Sod Succ 40 MG VIAL IVP SCH ×3 (05:01→21:59)
[2022-09-16] MEDS: Insulin Regular 300 UNITS/3 ML VIAL SC PRN ×4 (05:04→21:48)
[2022-09-16] MEDS: Dexmedetomidine 1,000 MCG in Sodium Chloride 0.9% 250 ML 240 ML IVPB SCH ×2 (05:54→16:53)
[2022-09-16] MEDS ORDERED: LOKELMA 10 GM PACKET PER TUBE SCH (06:45)
[2022-09-16 07:14] LABS: Actual Bicarbonate (HCO3a) 25.3 mEq/L (22-28); Base Excess (BEa) -2.2 mEq/L (-2.0 to +3.0); CO2 Tension 54.8 mmHg (35.0-45.0); Calcium, Ionized (arterial) 1.16 mmol/L (1.12-1.30); Carboxyhemoglobin (COHb) 0.9 gm% (0.0-3.0); Hemoglobin (Hb) 13.3 g/dL (12.0-16.0); Potassium - ABG Lab 5.18 mmol/L (3.70-5.30); pH, Arterial 7.28 (7.35-7.45)
[2022-09-16 07:23] LABS: Puncture Site RRA
[2022-09-16] MEDS: Heparin 5,000 UNITS/ML VIAL SC SCH ×2 (09:12→21:47)
[2022-09-16] MEDS: Polyethylene Glycol 3350 17 GM Packet PO SCH (09:12)
[2022-09-16] MEDS: Famotidine/PF 20 mg/2ml Vial SLOW IVP SCH (09:12)
[2022-09-16] MEDS: Amlodipine 5 MG TAB PO SCH (09:12)
[2022-09-16] MEDS: Aspirin 81 mg Enteric Coated Tablet PO SCH (09:12)
[2022-09-16] MEDS: Insulin NPH Human Isophane 100 UNIT/ML (10 ML VIAL) SC SCH ×2 (09:13→21:48)
[2022-09-16] MEDS: Saccharomyces boulardii 250 MG CAP PO SCH (09:13)
[2022-09-16] MEDS: cefTRIAXone\\ROCEPHIN 1 GM in Sodium Chloride 0.9% 100 ML IVPB SCH (18:18)
[2022-09-16] MEDS: Atorvastatin Calcium 40 MG TAB PO SCH (21:47)
[2022-09-17] MEDS: Ipratropium/Albuterol 3 ML NEB EZPAP SCH ×7 (01:08→21:38)
[2022-09-17 04:14] LABS: Hemoglobin 11.7 g/dL (12.0-16.0); Mean Corpuscular HGB CONC 32.7 g/dL (32.0-36.0); Mean Corpuscular Hemoglobin 33.5 pg (27.0-31.0); Mean Platelet Volume 8.7 fL (7.4-10.4); Platelet Count 130 10x3/uL (130-400); RBC Distribution Width 13.8 % (11.5-14.5); White Blood Cell (WBC) Count 8.8 10x3/uL (4.8-10.8)
[2022-09-17 04:22] LABS: Anion Gap 22 mmol/L (10-20); BUN (Urea Nitrogen) 93 mg/dL (9.8-20.1); Calc. Creatinine Clearance 15 mL/min (70-130); Calcium 8.9 mg/dL (7.8-10.44); Carbon Dioxide 21 mmol/L (23-31); Chloride 95 mmol/L (98-107); Estimated GFR 6; Glucose 276 mg/dL (80-115); Potassium 5.8 mmol/L (3.5-5.1); Sodium 132 mmol/L (136-145)
[2022-09-17] MEDS: methylPREDNISolone Sod Succ 40 MG VIAL IVP SCH ×3 (05:21→20:47)
[2022-09-17] MEDS: Propofol 1,000 MG/100 ML VIAL IV PRN ×3 (05:21→23:04)
[2022-09-17] MEDS: Insulin Regular 300 UNITS/3 ML VIAL SC PRN ×3 (05:22→20:47)
[2022-09-17] MEDS: Dexmedetomidine 1,000 MCG in Sodium Chloride 0.9% 250 ML 240 ML IVPB SCH ×3 (05:22→23:48)
[2022-09-17 07:51] LABS: Actual Bicarbonate (HCO3a) 23.1 mEq/L (22-28); Base Excess (BEa) -4.2 mEq/L (-2.0 to +3.0); CO2 Tension 52.2 mmHg (35.0-45.0); Calcium, Ionized (arterial) 1.14 mmol/L (1.12-1.30); Carboxyhemoglobin (COHb) 0.9 gm% (0.0-3.0); Hemoglobin (Hb) 11.5 g/dL (12.0-16.0); O2 Tension (PaO2), arterial 69.5 mmHg (> 80.0); Potassium - ABG Lab 5.56 mmol/L (3.70-5.30); Puncture Site RRA; pH, Arterial 7.26 (7.35-7.45)
[2022-09-17] MEDS: Heparin 5,000 UNITS/ML VIAL SC SCH ×2 (09:38→20:47)
[2022-09-17] MEDS: Vecuronium 10 MG VIAL IVP PRN ×5 (09:38→21:36)
[2022-09-17] MEDS: Polyethylene Glycol 3350 17 GM Packet PO SCH (09:39)
[2022-09-17] MEDS: Amlodipine 5 MG TAB PO SCH (09:39)
[2022-09-17] MEDS: Aspirin 81 mg Enteric Coated Tablet PO SCH (09:39)
[2022-09-17] MEDS: Saccharomyces boulardii 250 MG CAP PO SCH (09:39)
[2022-09-17] MEDS: Famotidine/PF 20 mg/2ml Vial SLOW IVP SCH (09:39)
[2022-09-17] MEDS: Fentanyl CADD 100 ML IV SCH (09:40)
[2022-09-17] MEDS: Insulin NPH Human Isophane 100 UNIT/ML (10 ML VIAL) SC SCH ×2 (09:43→20:47)
[2022-09-17] MEDS ORDERED: Albumin 25% 25 GM/100 ML BOT IVPB SCH (15:00)
[2022-09-17] MEDS: cefTRIAXone\\ROCEPHIN 1 GM in Sodium Chloride 0.9% 100 ML IVPB SCH (17:50)
[2022-09-17] MEDS ORDERED: Sterile Water 10 ML ONE (19:21)
[2022-09-17] MEDS: Atorvastatin Calcium 40 MG TAB PO SCH (20:47)
[2022-09-18] MEDS: Ipratropium/Albuterol 3 ML NEB EZPAP SCH ×9 (00:26→21:48)
[2022-09-18] MEDS: Vecuronium 10 MG VIAL IVP PRN ×8 (00:30→20:33)
[2022-09-18 03:38] LABS: Hemoglobin 11.7 g/dL (12.0-16.0); Mean Corpuscular HGB CONC 34.8 g/dL (32.0-36.0); Mean Corpuscular Hemoglobin 35.2 pg (27.0-31.0); Mean Platelet Volume 8.9 fL (7.4-10.4); Platelet Count 128 10x3/uL (130-400); RBC Distribution Width 13.5 % (11.5-14.5); Red Blood Cell (RBC) Count 3.33 mill/uL (4.20-5.40); White Blood Cell (WBC) Count 8.5 10x3/uL (4.8-10.8)
[2022-09-18 04:13] LABS: Anion Gap 21 mmol/L (10-20); BUN (Urea Nitrogen) 69 mg/dL (9.8-20.1); Calc. Creatinine Clearance 19 mL/min (70-130); Calcium 9.3 mg/dL (7.8-10.44); Carbon Dioxide 24 mmol/L (23-31); Chloride 95 mmol/L (98-107); Estimated GFR 8; Glucose 317 mg/dL (80-115); Potassium 5.1 mmol/L (3.5-5.1); Sodium 135 mmol/L (136-145)
[2022-09-18] MEDS: Insulin Regular 300 UNITS/3 ML VIAL SC PRN ×3 (04:34→17:08)
[2022-09-18] MEDS ORDERED: Fentanyl CADD 100 ML ONE (04:49)
[2022-09-18] MEDS: Fentanyl CADD 100 ML IV SCH (04:56)
[2022-09-18] MEDS: Midazolam HCl 2 mg/2 ml Vial SLOW IVP PRN ×5 (06:53→20:33)
[2022-09-18] MEDS: Aspirin Chewable 81 MG TAB PO SCH (07:42)
[2022-09-18] MEDS: Saccharomyces boulardii 250 MG CAP PO SCH (07:42)
[2022-09-18] MEDS: Heparin 5,000 UNITS/ML VIAL SC SCH ×2 (07:42→20:33)
[2022-09-18] MEDS: Insulin NPH Human Isophane 100 UNIT/ML (10 ML VIAL) SC SCH ×2 (07:43→20:36)
[2022-09-18] MEDS: Propofol 1,000 MG/100 ML VIAL IV PRN (07:43)
[2022-09-18] MEDS: Polyethylene Glycol 3350 17 GM Packet PO SCH (07:43)
[2022-09-18] MEDS: Famotidine/PF 20 mg/2ml Vial SLOW IVP SCH (07:43)
[2022-09-18] MEDS: methylPREDNISolone Sod Succ 40 MG VIAL IVP SCH ×2 (07:43→20:33)
[2022-09-18] MEDS: Amlodipine 5 MG TAB PO SCH (07:43)
[2022-09-18 08:01] LABS: Actual Bicarbonate (HCO3a) 26.1 mEq/L (22-28); Base Excess (BEa) -1.1 mEq/L (-2.0 to +3.0); CO2 Tension 55.3 mmHg (35.0-45.0); Calcium, Ionized (arterial) 1.17 mmol/L (1.12-1.30); Carboxyhemoglobin (COHb) 0.6 gm% (0.0-3.0); Hemoglobin (Hb) 11.8 g/dL (12.0-16.0); O2 Tension (PaO2), arterial 99.3 mmHg (> 80.0); Potassium - ABG Lab 4.75 mmol/L (3.70-5.30); pH, Arterial 7.29 (7.35-7.45)
[2022-09-18 08:02] LABS: ALV-art Gradient 116.775 mmHg (0-20); Puncture Site RRA
[2022-09-18] MEDS: Dexmedetomidine 1,000 MCG in Sodium Chloride 0.9% 250 ML 240 ML IVPB SCH (14:14)
[2022-09-18] MEDS: cefTRIAXone\\ROCEPHIN 1 GM in Sodium Chloride 0.9% 100 ML IVPB SCH ×2 (17:18→22:23)
[2022-09-18] MEDS ORDERED: Albumin 25% 25 GM/100 ML BOT IVPB SCH (18:15)
[2022-09-18] MEDS ORDERED: NOREPINEPHRINE 8 MG/250 ML-D5W 250 ML IVPB SCH (18:30)
[2022-09-18] MEDS: Atorvastatin Calcium 40 MG TAB PO SCH (20:33)
[2022-09-19] MEDS: Ipratropium/Albuterol 3 ML NEB EZPAP SCH ×8 (00:36→21:48)
[2022-09-19] MEDS: Fentanyl CADD 100 ML IV SCH ×2 (00:46→18:40)
[2022-09-19] MEDS: Dexmedetomidine 1,000 MCG in Sodium Chloride 0.9% 250 ML 240 ML IVPB SCH ×2 (00:47→21:32)
[2022-09-19] MEDS: Propofol 1,000 MG/100 ML VIAL IV PRN ×3 (04:18→21:42)
[2022-09-19] MEDS: Midazolam HCl 2 mg/2 ml Vial SLOW IVP PRN ×5 (04:18→17:40)
[2022-09-19] MEDS: Vecuronium 10 MG VIAL IVP PRN ×2 (04:18→08:20)
[2022-09-19] MEDS: Insulin Regular 300 UNITS/3 ML VIAL SC PRN ×3 (04:59→16:23)
[2022-09-19 05:33] LABS: Hemoglobin 12.5 g/dL (12.0-16.0); Mean Corpuscular HGB CONC 34.3 g/dL (32.0-36.0); Mean Corpuscular Hemoglobin 37.1 pg (27.0-31.0); Mean Platelet Volume 9.8 fL (7.4-10.4); Platelet Count 66 10x3/uL (130-400); RBC Distribution Width 13.9 % (11.5-14.5); Red Blood Cell (RBC) Count 3.37 mill/uL (4.20-5.40); White Blood Cell (WBC) Count 9.3 10x3/uL (4.8-10.8)
[2022-09-19 06:32] LABS: Anion Gap 18 mmol/L (10-20); BUN (Urea Nitrogen) 63 mg/dL (9.8-20.1); Calc. Creatinine Clearance 24 mL/min (70-130); Calcium 8.3 mg/dL (7.8-10.44); Carbon Dioxide 20 mmol/L (23-31); Chloride 98 mmol/L (98-107); Estimated GFR 10; Glucose 266 mg/dL (80-115); Potassium 4.8 mmol/L (3.5-5.1); Sodium 131 mmol/L (136-145)
[2022-09-19 08:00] LABS: Actual Bicarbonate (HCO3a) 25.9 mEq/L (22-28); CO2 Tension 59.6 mmHg (35.0-45.0); Calcium, Ionized (arterial) 1.19 mmol/L (1.12-1.30); Carboxyhemoglobin (COHb) 0.8 gm% (0.0-3.0); Hemoglobin (Hb) 11.8 g/dL (12.0-16.0); O2 Tension (PaO2), arterial 83.3 mmHg (> 80.0); Potassium - ABG Lab 4.64 mmol/L (3.70-5.30); pH, Arterial 7.26 (7.35-7.45)
[2022-09-19 08:02] LABS: Puncture Site RRA
[2022-09-19] MEDS: Amlodipine 5 MG TAB PO SCH (08:22)
[2022-09-19] MEDS: methylPREDNISolone Sod Succ 40 MG VIAL IVP SCH ×2 (08:22→21:31)
[2022-09-19] MEDS: Aspirin Chewable 81 MG TAB PO SCH (08:22)
[2022-09-19] MEDS: Polyethylene Glycol 3350 17 GM Packet PO SCH (08:22)
[2022-09-19] MEDS: Saccharomyces boulardii 250 MG CAP PO SCH (08:22)
[2022-09-19] MEDS: Insulin NPH Human Isophane 100 UNIT/ML (10 ML VIAL) SC SCH ×2 (08:23→21:36)
[2022-09-19] MEDS: Famotidine/PF 20 mg/2ml Vial SLOW IVP SCH (08:24)
[2022-09-19] MEDS: Pantoprazole 40 MG VIAL IVP SCH ×2 (09:09→21:31)
[2022-09-19] MEDS ORDERED: Albumin 25% 25 GM/100 ML BOT IVPB PRN (09:49)
[2022-09-19] MEDS: cefTRIAXone\\ROCEPHIN 1 GM in Sodium Chloride 0.9% 100 ML IVPB SCH (17:40)
[2022-09-19] MEDS ORDERED: Fentanyl CADD 100 ML ONE (18:36)
[2022-09-19] MEDS: Atorvastatin Calcium 40 MG TAB PO SCH (21:31)
[2022-09-20] MEDS: Ipratropium/Albuterol 3 ML NEB EZPAP SCH ×9 (00:17→23:30)
[2022-09-20] MEDS: Propofol 1,000 MG/100 ML VIAL IV PRN ×4 (00:44→19:52)
[2022-09-20] MEDS: Midazolam HCl 2 mg/2 ml Vial SLOW IVP PRN ×3 (00:57→22:13)
[2022-09-20 04:36] LABS: BUN (Urea Nitrogen) 63 mg/dL (9.8-20.1); Calc. Creatinine Clearance 23 mL/min (70-130); Calcium 9.2 mg/dL (7.8-10.44); Carbon Dioxide 18 mmol/L (23-31); Estimated GFR 10; Glucose 175 mg/dL (80-115); Potassium 4.9 mmol/L (3.5-5.1); Sodium 133 mmol/L (136-145)
[2022-09-20 05:47] LABS: Anion Gap 27 mmol/L (10-20); Chloride 100 mmol/L (98-107)
[2022-09-20] MEDS: Insulin Regular 300 UNITS/3 ML VIAL SC PRN (05:53)
[2022-09-20 06:54] LABS: Actual Bicarbonate (HCO3a) 23.7 mEq/L (22-28); Base Excess (BEa) -3.5 mEq/L (-2.0 to +3.0); CO2 Tension 53.1 mmHg (35.0-45.0); Calcium, Ionized (arterial) 1.18 mmol/L (1.12-1.30); Carboxyhemoglobin (COHb) 1.1 gm% (0.0-3.0); Hemoglobin (Hb) 11.2 g/dL (12.0-16.0); O2 Tension (PaO2), arterial 75.2 mmHg (> 80.0); Potassium - ABG Lab 4.52 mmol/L (3.70-5.30); pH, Arterial 7.27 (7.35-7.45)
[2022-09-20 06:59] LABS: ALV-art Gradient 107.975 mmHg (0-20)
[2022-09-20] MEDS ORDERED: Heparin 10,000 UNITS/ 10 ML VIAL ONE (08:29)
[2022-09-20] MEDS: Pantoprazole 40 MG VIAL IVP SCH ×2 (08:59→20:18)
[2022-09-20] MEDS: methylPREDNISolone Sod Succ 40 MG VIAL IVP SCH ×2 (08:59→20:18)
[2022-09-20] MEDS: Polyethylene Glycol 3350 17 GM Packet PO SCH (08:59)
[2022-09-20] MEDS: Aspirin Chewable 81 MG TAB PO SCH (09:00)
[2022-09-20] MEDS: Saccharomyces boulardii 250 MG CAP PO SCH (09:00)
[2022-09-20] MEDS: Insulin NPH Human Isophane 100 UNIT/ML (10 ML VIAL) SC SCH ×2 (09:02→22:13)
[2022-09-20] MEDS: Dexmedetomidine 1,000 MCG in Sodium Chloride 0.9% 250 ML 240 ML IVPB SCH ×2 (10:34→19:52)
[2022-09-20] MEDS ORDERED: Fentanyl CADD 100 ML ONE (17:50)
[2022-09-20] MEDS: Atorvastatin Calcium 40 MG TAB PO SCH (20:18)
[2022-09-20] MEDS: Vecuronium 10 MG VIAL IVP PRN (22:13)
[2022-09-21] MEDS: Propofol 1,000 MG/100 ML VIAL IV PRN ×4 (00:15→14:12)
[2022-09-21] MEDS: Ipratropium/Albuterol 3 ML NEB EZPAP SCH ×8 (02:32→23:45)
[2022-09-21] MEDS: Dexmedetomidine 1,000 MCG in Sodium Chloride 0.9% 250 ML 240 ML IVPB SCH ×2 (04:00→12:23)
[2022-09-21 04:04] LABS: #Eosinphils 0.1 thou/uL (0.0-0.7); #Lymphocytes 0.4 thou/uL (1.20-3.40); #Monocytes 0.5 thou/uL (0.11-0.59); #Neutrophils 10.5 thou/uL (1.40-6.50); %Eosinophils 0.4 % (0.0-10.0); %Lymphocytes 3.3 % (21.0-51.0); %Monocytes 4.5 % (0.0-10.0); %Neutrophils 91.7 % (42.0-75.0); Hemoglobin 11.7 g/dL (12.0-16.0); Mean Corpuscular HGB CONC 33.3 g/dL (32.0-36.0); Mean Corpuscular Hemoglobin 33.6 pg (27.0-31.0); Mean Platelet Volume 8.8 fL (7.4-10.4); Platelet Count 151 10x3/uL (130-400); RBC Distribution Width 13.8 % (11.5-14.5); Red Blood Cell (RBC) Count 3.48 mill/uL (4.20-5.40); White Blood Cell (WBC) Count 11.4 10x3/uL (4.8-10.8)
[2022-09-21 04:23] LABS: Anion Gap 21 mmol/L (10-20); BUN (Urea Nitrogen) 50 mg/dL (9.8-20.1); Calc. Creatinine Clearance 25 mL/min (70-130); Calcium 9.3 mg/dL (7.8-10.44); Carbon Dioxide 24 mmol/L (23-31); Chloride 94 mmol/L (98-107); Estimated GFR 11; Glucose 176 mg/dL (80-115); Potassium 4.8 mmol/L (3.5-5.1); Sodium 134 mmol/L (136-145)
[2022-09-21] MEDS: Insulin Regular 300 UNITS/3 ML VIAL SC PRN (04:59)
[2022-09-21] MEDS: Aspirin Chewable 81 MG TAB PO SCH (09:14)
[2022-09-21] MEDS: Heparin 5,000 UNITS/ML VIAL SC SCH ×2 (09:14→21:49)
[2022-09-21] MEDS: Saccharomyces boulardii 250 MG CAP PO SCH (09:14)
[2022-09-21] MEDS: Pantoprazole 40 MG VIAL IVP SCH ×2 (09:14→21:49)
[2022-09-21] MEDS: methylPREDNISolone Sod Succ 40 MG VIAL IVP SCH ×2 (09:14→21:49)
[2022-09-21] MEDS: Insulin NPH Human Isophane 100 UNIT/ML (10 ML VIAL) SC SCH ×2 (09:15→21:51)
[2022-09-21] MEDS: Polyethylene Glycol 3350 17 GM Packet PO SCH (09:15)
[2022-09-21 10:08] LABS: Actual Bicarbonate (HCO3v) 24 mEq/L (22-28); Base Excess -2.2 mEq/L (-2.0 to +3.0); Calcium, Ionized (venous) 1.06 mmol/L (1.16-1.32); Chloride (VBG) 96 mmol/L (98-106); Hemoglobin (Hb) 12.6 g/dL (11.7-16.0); Potassium (VBG) 4.65 mmol/L (3.70-5.30); Sodium 133.2 mmol/L (133-146); pH (venous) 7.34 (7.32-7.43)
[2022-09-21] MEDS: EPOETIN ALFA-EPBX (ESRD) 10,000 UNIT/ML VIAL SC SCH (11:03)
[2022-09-21] MEDS: Metoclopramide HCl 10 MG/2 ML VIAL IVP SCH ×2 (13:07→21:50)
[2022-09-21] MEDS ORDERED: Fentanyl CADD 100 ML ONE (16:12)
[2022-09-21] MEDS: Fentanyl CADD 100 ML IV SCH (16:13)
[2022-09-21] MEDS: Dextrose 50% Abboject 50 ML SYRINGE SLOW IVP PRN ×2 (16:33→21:44)
[2022-09-21] MEDS: Midazolam HCl 2 mg/2 ml Vial SLOW IVP PRN (17:03)
[2022-09-21] MEDS ORDERED: Lidocaine 1% (PF) 30 ML VIAL ONE (17:17)
[2022-09-21] MEDS: Atorvastatin Calcium 40 MG TAB PO SCH (21:57)
[2022-09-21] MEDS ORDERED: Dextrose 5 % And 0.9 % NaCl 1,000 ML IV SCH (22:15)
[2022-09-22] MEDS: Midazolam HCl 2 mg/2 ml Vial SLOW IVP PRN (02:39)
[2022-09-22] MEDS: Ipratropium/Albuterol 3 ML NEB EZPAP SCH ×8 (02:40→23:33)
[2022-09-22] MEDS: Propofol 1,000 MG/100 ML VIAL IV PRN (03:34)
[2022-09-22 04:04] LABS: Anion Gap 20 mmol/L (10-20); BUN (Urea Nitrogen) 81 mg/dL (9.8-20.1); Calc. Creatinine Clearance 20 mL/min (70-130); Calcium 8.8 mg/dL (7.8-10.44); Carbon Dioxide 22 mmol/L (23-31); Chloride 98 mmol/L (98-107); Estimated GFR 8; Potassium 4.4 mmol/L (3.5-5.1); Sodium 136 mmol/L (136-145)
[2022-09-22 04:07] LABS: Glucose 55 mg/dL (80-115)
[2022-09-22] MEDS: Dextrose 50% Abboject 50 ML SYRINGE SLOW IVP PRN (04:28)
[2022-09-22] MEDS: Dextrose 5 % And 0.9 % NaCl 1,000 ML IV SCH ×2 (05:13→14:52)
[2022-09-22] MEDS: Metoclopramide HCl 10 MG/2 ML VIAL IVP SCH ×3 (05:13→21:42)
[2022-09-22] MEDS: Dexmedetomidine 1,000 MCG in Sodium Chloride 0.9% 250 ML 240 ML IVPB SCH ×2 (05:41→14:07)
[2022-09-22] MEDS: Insulin NPH Human Isophane 100 UNIT/ML (10 ML VIAL) SC SCH (08:34)
[2022-09-22] MEDS: Aspirin Chewable 81 MG TAB PO SCH (08:34)
[2022-09-22] MEDS: Polyethylene Glycol 3350 17 GM Packet PO SCH (08:34)
[2022-09-22] MEDS: Saccharomyces boulardii 250 MG CAP PO SCH (08:34)
[2022-09-22] MEDS: methylPREDNISolone Sod Succ 40 MG VIAL IVP SCH (08:35)
[2022-09-22] MEDS: Pantoprazole 40 MG VIAL IVP SCH ×2 (08:35→20:54)
[2022-09-22] MEDS: Heparin 5,000 UNITS/ML VIAL SC SCH ×2 (08:35→20:54)
[2022-09-22] MEDS ORDERED: Albumin 25% 25 GM/100 ML BOT IVPB PRN (09:48)
[2022-09-22] MEDS: Atorvastatin Calcium 40 MG TAB PO SCH (20:54)
[2022-09-23] MEDS: Ipratropium/Albuterol 3 ML NEB EZPAP SCH ×8 (02:49→23:49)
[2022-09-23 04:32] LABS: #Eosinphils 0.2 thou/uL (0.0-0.7); #Lymphocytes 0.6 thou/uL (1.20-3.40); #Monocytes 0.4 thou/uL (0.11-0.59); #Neutrophils 8.4 thou/uL (1.40-6.50); %Eosinophils 1.7 % (0.0-10.0); %Lymphocytes 6.2 % (21.0-51.0); %Neutrophils 88.1 % (42.0-75.0); Hemoglobin 11.2 g/dL (12.0-16.0); Mean Corpuscular HGB CONC 34.5 g/dL (32.0-36.0); Mean Corpuscular Hemoglobin 35.3 pg (27.0-31.0); Platelet Count 145 10x3/uL (130-400); RBC Distribution Width 13.6 % (11.5-14.5); Red Blood Cell (RBC) Count 3.16 mill/uL (4.20-5.40); White Blood Cell (WBC) Count 9.5 10x3/uL (4.8-10.8)
[2022-09-23 04:52] LABS: Phosphorus 5.5 mg/dL (2.3-4.7)
[2022-09-23 04:58] LABS: Anion Gap 20 mmol/L (10-20); BUN (Urea Nitrogen) 47 mg/dL (9.8-20.1); Calc. Creatinine Clearance 25 mL/min (70-130); Calcium 9.1 mg/dL (7.8-10.44); Carbon Dioxide 24 mmol/L (23-31); Chloride 99 mmol/L (98-107); Estimated GFR 11; Glucose 91 mg/dL (80-115); Potassium 3.6 mmol/L (3.5-5.1); Sodium 139 mmol/L (136-145)
[2022-09-23] MEDS ORDERED: Bisacodyl 10 MG SUPP PR PRN (08:49)
[2022-09-23] MEDS: methylPREDNISolone Sod Succ 40 MG VIAL IVP SCH (09:41)
[2022-09-23] MEDS: Heparin 5,000 UNITS/ML VIAL SC SCH ×2 (09:42→20:53)
[2022-09-23] MEDS: Metoclopramide HCl 10 MG/2 ML VIAL IVP SCH ×2 (09:47→19:37)
[2022-09-23] MEDS: Pantoprazole 40 MG VIAL IVP SCH (09:47)
[2022-09-23] MEDS: Polyethylene Glycol 3350 17 GM Packet PO SCH (09:48)
[2022-09-23] MEDS: Saccharomyces boulardii 250 MG CAP PO SCH (09:48)
[2022-09-23] MEDS: Aspirin Chewable 81 MG TAB PO SCH (09:48)
[2022-09-23] MEDS: Calcitriol 0.25 MCG CAP PO SCH (09:48)
[2022-09-23] MEDS: Dextrose 5 % And 0.9 % NaCl 1,000 ML IV SCH ×2 (10:06→20:57)
[2022-09-23] MEDS ORDERED: CEFAZOLIN 2 GM in Sodium Chloride 0.9% 100 ML IVPB SCH (14:30)
[2022-09-23] MEDS: Mometasone 100 MCG/Formoterol 5 MCG 120 PUFF INHALER INH SCH (18:19)
[2022-09-23] MEDS: Atorvastatin Calcium 40 MG TAB PO SCH (20:53)
[2022-09-24] MEDS: Metoclopramide HCl 10 MG/2 ML VIAL IVP SCH (00:41)
[2022-09-24] MEDS: Ipratropium/Albuterol 3 ML NEB EZPAP SCH ×7 (02:56→21:44)
[2022-09-24 04:52] LABS: #Eosinphils 0.1 thou/uL (0.0-0.7); #Lymphocytes 0.6 thou/uL (1.20-3.40); #Monocytes 0.6 thou/uL (0.11-0.59); #Neutrophils 10.8 thou/uL (1.40-6.50); %Eosinophils 0.9 % (0.0-10.0); %Lymphocytes 4.8 % (21.0-51.0); %Neutrophils 89.3 % (42.0-75.0); Hemoglobin 11.1 g/dL (12.0-16.0); Mean Corpuscular HGB CONC 32.4 g/dL (32.0-36.0); Mean Corpuscular Hemoglobin 33.4 pg (27.0-31.0); Mean Platelet Volume 8.2 fL (7.4-10.4); Platelet Count 176 10x3/uL (130-400); RBC Distribution Width 13.7 % (11.5-14.5); Red Blood Cell (RBC) Count 3.32 mill/uL (4.20-5.40); White Blood Cell (WBC) Count 12.1 10x3/uL (4.8-10.8)
[2022-09-24 05:12] LABS: Anion Gap 21 mmol/L (10-20); BUN (Urea Nitrogen) 64 mg/dL (9.8-20.1); Calc. Creatinine Clearance 17 mL/min (70-130); Calcium 9.1 mg/dL (7.8-10.44); Carbon Dioxide 21 mmol/L (23-31); Chloride 103 mmol/L (98-107); Estimated GFR 7; Glucose 103 mg/dL (80-115); Potassium 3.6 mmol/L (3.5-5.1); Sodium 141 mmol/L (136-145)
[2022-09-24] MEDS: Mometasone 100 MCG/Formoterol 5 MCG 120 PUFF INHALER INH SCH ×2 (07:25→18:27)
[2022-09-24] MEDS: methylPREDNISolone Sod Succ 40 MG VIAL IVP SCH (08:33)
[2022-09-24] MEDS: Pantoprazole 40 MG VIAL IVP SCH (08:34)
[2022-09-24] MEDS: Aspirin Chewable 81 MG TAB PO SCH (08:34)
[2022-09-24] MEDS: Calcitriol 0.25 MCG CAP PO SCH (08:34)
[2022-09-24] MEDS: Saccharomyces boulardii 250 MG CAP PO SCH (08:35)
[2022-09-24] MEDS: Heparin 5,000 UNITS/ML VIAL SC SCH ×2 (08:35→20:01)
[2022-09-24] MEDS: Polyethylene Glycol 3350 17 GM Packet PO SCH (08:35)
[2022-09-24] MEDS ORDERED: Fentanyl 250 MCG/5 ML VIAL ONE (09:35)
[2022-09-24] MEDS ORDERED: Bupivacaine HCl 0.5%/Epinephrine 1:200,000/PF 30 ml Vial ONE (10:15)
[2022-09-24] MEDS: Dextrose 5 % And 0.9 % NaCl 1,000 ML IV SCH (12:12)
[2022-09-24] MEDS: CEFAZOLIN 2 GM in Sodium Chloride 0.9% 100 ML IVPB SCH ×2 (14:30→21:42)
[2022-09-24] MEDS: Acetaminophen 325 MG TAB PO PRN (20:01)
[2022-09-24] MEDS: Atorvastatin Calcium 40 MG TAB PO SCH (20:01)
[2022-09-25] MEDS: Ipratropium/Albuterol 3 ML NEB EZPAP SCH ×6 (00:40→23:17)
[2022-09-25] MEDS: Dextrose 5 % And 0.9 % NaCl 1,000 ML IV SCH ×2 (01:10→20:45)
[2022-09-25 04:58] LABS: #Eosinphils 0.1 thou/uL (0.0-0.7); #Lymphocytes 0.6 thou/uL (1.20-3.40); #Monocytes 0.7 thou/uL (0.11-0.59); #Neutrophils 11.1 thou/uL (1.40-6.50); %Basophils 0.1 % (0.0-1.0); %Eosinophils 0.6 % (0.0-10.0); %Monocytes 5.5 % (0.0-10.0); %Neutrophils 88.8 % (42.0-75.0); Hemoglobin 10.8 g/dL (12.0-16.0); Mean Corpuscular HGB CONC 31.8 g/dL (32.0-36.0); Mean Corpuscular Hemoglobin 32.8 pg (27.0-31.0); Mean Platelet Volume 7.9 fL (7.4-10.4); Platelet Count 188 10x3/uL (130-400); RBC Distribution Width 13.5 % (11.5-14.5); Red Blood Cell (RBC) Count 3.29 mill/uL (4.20-5.40); White Blood Cell (WBC) Count 12.5 10x3/uL (4.8-10.8)
[2022-09-25 05:06] LABS: ALT (SGPT) Less than 7 U/L (8-55); AST (SGOT) 18 U/L (5-34); Albumin 3.8 g/dL (3.4-4.8); Alkaline Phosphatase 65 U/L (40-110); Anion Gap 21 mmol/L (10-20); BUN (Urea Nitrogen) 81 mg/dL (9.8-20.1); Bilirubin, Total 0.6 mg/dL (0.2-1.2); Calc. Creatinine Clearance 14 mL/min (70-130); Calcium 8.7 mg/dL (7.8-10.44); Carbon Dioxide 20 mmol/L (23-31); Chloride 105 mmol/L (98-107); Estimated GFR 5; Globulin 2.5 g/dL (2.4-3.5); Glucose 107 mg/dL (80-115); Potassium 3.5 mmol/L (3.5-5.1); Protein, Total 6.3 g/dL (5.8-8.1); Sodium 142 mmol/L (136-145)
[2022-09-25] MEDS: Mometasone 100 MCG/Formoterol 5 MCG 120 PUFF INHALER INH SCH ×2 (06:19→18:58)
[2022-09-25] MEDS: Heparin 5,000 UNITS/ML VIAL SC SCH ×3 (08:20→20:44)
[2022-09-25] MEDS: methylPREDNISolone Sod Succ 40 MG VIAL IVP SCH (08:20)
[2022-09-25] MEDS: Saccharomyces boulardii 250 MG CAP PO SCH (08:21)
[2022-09-25] MEDS: Carvedilol 6.25 MG TAB PO SCH ×2 (08:21→20:44)
[2022-09-25] MEDS: Pantoprazole 40 MG VIAL IVP SCH (08:21)
[2022-09-25] MEDS: Aspirin Chewable 81 MG TAB PO SCH (08:21)
[2022-09-25] MEDS: Calcitriol 0.25 MCG CAP PO SCH (08:21)
[2022-09-25] MEDS: Acetaminophen 325 MG/10.15 ML UDCUP PO PRN (08:37)
[2022-09-25] MEDS: Polyethylene Glycol 3350 17 GM Packet PO SCH (11:13)
[2022-09-25] MEDS: Atorvastatin Calcium 40 MG TAB PO SCH (20:44)
[2022-09-26] MEDS: Dextrose 5 % And 0.9 % NaCl 1,000 ML IV SCH ×3 (01:44→19:54)
[2022-09-26 04:39] LABS: #Eosinphils 0.1 thou/uL (0.0-0.7); #Lymphocytes 0.6 thou/uL (1.20-3.40); #Monocytes 0.7 thou/uL (0.11-0.59); #Neutrophils 10.3 thou/uL (1.40-6.50); %Lymphocytes 5.1 % (21.0-51.0); %Monocytes 5.7 % (0.0-10.0); %Neutrophils 88.2 % (42.0-75.0); Hemoglobin 11.2 g/dL (12.0-16.0); Mean Corpuscular HGB CONC 32.2 g/dL (32.0-36.0); Mean Corpuscular Hemoglobin 32.8 pg (27.0-31.0); Mean Platelet Volume 7.8 fL (7.4-10.4); Platelet Count 180 10x3/uL (130-400); RBC Distribution Width 13.3 % (11.5-14.5); Red Blood Cell (RBC) Count 3.43 mill/uL (4.20-5.40); White Blood Cell (WBC) Count 11.7 10x3/uL (4.8-10.8)
[2022-09-26 05:00] LABS: ALT (SGPT) Less than 7 U/L (8-55); AST (SGOT) 21 U/L (5-34); Albumin 3.7 g/dL (3.4-4.8); Alkaline Phosphatase 65 U/L (40-110); Anion Gap 18 mmol/L (10-20); BUN (Urea Nitrogen) 52 mg/dL (9.8-20.1); Bilirubin, Total 0.7 mg/dL (0.2-1.2); Calc. Creatinine Clearance 18 mL/min (70-130); Calcium 8.8 mg/dL (7.8-10.44); Carbon Dioxide 24 mmol/L (23-31); Chloride 103 mmol/L (98-107); Estimated GFR 7; Globulin 2.6 g/dL (2.4-3.5); Glucose 147 mg/dL (80-115); Potassium 2.9 mmol/L (3.5-5.1); Protein, Total 6.3 g/dL (5.8-8.1); Sodium 142 mmol/L (136-145)
[2022-09-26] MEDS: Ipratropium/Albuterol 3 ML NEB EZPAP SCH ×4 (06:24→23:15)
[2022-09-26] MEDS: Mometasone 100 MCG/Formoterol 5 MCG 120 PUFF INHALER INH SCH ×2 (06:43→18:45)
[2022-09-26] MEDS ORDERED: Potassium Chloride 20 MEQ in Premix Bag 1 BAG IVPB SCH (08:00)
[2022-09-26] MEDS: Calcitriol 0.25 MCG CAP PO SCH (08:47)
[2022-09-26] MEDS: Pantoprazole 40 MG VIAL IVP SCH (08:47)
[2022-09-26] MEDS: Carvedilol 6.25 MG TAB PO SCH ×2 (08:47→20:51)
[2022-09-26] MEDS: Saccharomyces boulardii 250 MG CAP PO SCH (08:47)
[2022-09-26] MEDS: Aspirin Chewable 81 MG TAB PO SCH (08:47)
[2022-09-26] MEDS: Polyethylene Glycol 3350 17 GM Packet PO SCH (08:49)
[2022-09-26] MEDS: Heparin 5,000 UNITS/ML VIAL SC SCH ×3 (08:49→20:51)
[2022-09-26] MEDS: Acetaminophen 325 MG/10.15 ML UDCUP PO PRN ×2 (16:10→23:10)
[2022-09-26] MEDS: Atorvastatin Calcium 40 MG TAB PO SCH (20:51)
[2022-09-26] MEDS: Ondansetron PF 4 MG/2 ML Vial IVP PRN (21:44)
[2022-09-27 04:39] LABS: Anion Gap 15 mmol/L (10-20); BUN (Urea Nitrogen) 65 mg/dL (9.8-20.1); Carbon Dioxide 23 mmol/L (23-31); Chloride 107 mmol/L (98-107); Potassium 3.1 mmol/L (3.5-5.1); Sodium 142 mmol/L (136-145)
[2022-09-27 04:40] LABS: Calc. Creatinine Clearance 15 mL/min (70-130); Calcium 8.5 mg/dL (7.8-10.44); Estimated GFR 6; Glucose 136 mg/dL (80-115)
[2022-09-27] MEDS: Dextrose 5 % And 0.9 % NaCl 1,000 ML IV SCH ×2 (05:24→10:12)
[2022-09-27] MEDS: Ipratropium/Albuterol 3 ML NEB EZPAP SCH ×4 (07:11→22:54)
[2022-09-27] MEDS: Mometasone 100 MCG/Formoterol 5 MCG 120 PUFF INHALER INH SCH ×2 (07:14→19:14)
[2022-09-27] MEDS: Saccharomyces boulardii 250 MG CAP PO SCH (10:10)
[2022-09-27] MEDS: Aspirin Chewable 81 MG TAB PO SCH (10:10)
[2022-09-27] MEDS: Heparin 5,000 UNITS/ML VIAL SC SCH ×3 (10:10→21:41)
[2022-09-27] MEDS: Polyethylene Glycol 3350 17 GM Packet PO SCH (10:10)
[2022-09-27] MEDS: Pantoprazole 40 MG VIAL IVP SCH (10:11)
[2022-09-27] MEDS: Carvedilol 6.25 MG TAB PO SCH ×2 (10:11→21:40)
[2022-09-27] MEDS: Calcitriol 0.25 MCG CAP PO SCH (10:15)
[2022-09-27] MEDS ORDERED: Potassium Bicarbonate/Cit Ac 20 MEQ TAB PO SCH (11:15)
[2022-09-27] MEDS: Atorvastatin Calcium 40 MG TAB PO SCH (21:40)
[2022-09-27] MEDS: Ondansetron PF 4 MG/2 ML Vial IVP PRN (22:18)
[2022-09-28] MEDS ORDERED: Guaifenesin DM 100-10/5 ML UDCUP PER TUBE PRN (04:39)
[2022-09-28 05:13] LABS: Anion Gap 14 mmol/L (10-20); BUN (Urea Nitrogen) 44 mg/dL (9.8-20.1); Calc. Creatinine Clearance 21 mL/min (70-130); Calcium 8.3 mg/dL (7.8-10.44); Carbon Dioxide 26 mmol/L (23-31); Chloride 106 mmol/L (98-107); Estimated GFR 9; Glucose 159 mg/dL (80-115); Potassium 3.4 mmol/L (3.5-5.1); Sodium 143 mmol/L (136-145)
[2022-09-28] MEDS: Ipratropium/Albuterol 3 ML NEB EZPAP SCH ×4 (07:21→23:37)
[2022-09-28] MEDS: Mometasone 100 MCG/Formoterol 5 MCG 120 PUFF INHALER INH SCH ×2 (07:22→18:39)
[2022-09-28] MEDS: Saccharomyces boulardii 250 MG CAP PO SCH (09:06)
[2022-09-28] MEDS: Heparin 5,000 UNITS/ML VIAL SC SCH ×3 (09:06→21:06)
[2022-09-28] MEDS: Carvedilol 6.25 MG TAB PO SCH ×2 (09:06→21:07)
[2022-09-28] MEDS: Calcitriol 0.25 MCG CAP PO SCH (09:06)
[2022-09-28] MEDS: Polyethylene Glycol 3350 17 GM Packet PO SCH (09:06)
[2022-09-28] MEDS: Aspirin Chewable 81 MG TAB PO SCH (09:06)
[2022-09-28] MEDS: Pantoprazole 40 MG VIAL IVP SCH (09:07)
[2022-09-28] MEDS: Dextrose 5 % And 0.9 % NaCl 1,000 ML IV SCH ×2 (09:08→17:15)
[2022-09-28] MEDS: EPOETIN ALFA-EPBX (ESRD) 10,000 UNIT/ML VIAL SC SCH (12:24)
[2022-09-28] MEDS ORDERED: Potassium Chloride 20 MEQ in Premix Bag 1 BAG IVPB SCH (14:30)
[2022-09-28] MEDS: Atorvastatin Calcium 40 MG TAB PO SCH (21:07)
[2022-09-29 06:11] LABS: #Eosinphils 0.2 thou/uL (0.0-0.7); #Lymphocytes 0.8 thou/uL (1.20-3.40); #Monocytes 0.4 thou/uL (0.11-0.59); #Neutrophils 5.4 thou/uL (1.40-6.50); %Basophils 0.4 % (0.0-1.0); %Eosinophils 2.5 % (0.0-10.0); %Lymphocytes 11.4 % (21.0-51.0); %Monocytes 5.6 % (0.0-10.0); %Neutrophils 80.2 % (42.0-75.0); Hemoglobin 9.7 g/dL (12.0-16.0); Mean Corpuscular HGB CONC 33.6 g/dL (32.0-36.0); Mean Corpuscular Hemoglobin 33.7 pg (27.0-31.0); Mean Platelet Volume 7.9 fL (7.4-10.4); Platelet Count 129 10x3/uL (130-400); RBC Distribution Width 13.1 % (11.5-14.5); Red Blood Cell (RBC) Count 2.88 mill/uL (4.20-5.40); White Blood Cell (WBC) Count 6.7 10x3/uL (4.8-10.8)
[2022-09-29 06:32] LABS: Anion Gap 18 mmol/L (10-20); BUN (Urea Nitrogen) 68 mg/dL (9.8-20.1); Calc. Creatinine Clearance 16 mL/min (70-130); Calcium 8.6 mg/dL (7.8-10.44); Carbon Dioxide 21 mmol/L (23-31); Chloride 106 mmol/L (98-107); Estimated GFR 7; Glucose 157 mg/dL (80-115); Potassium 3.7 mmol/L (3.5-5.1); Sodium 141 mmol/L (136-145)
[2022-09-29] MEDS: Ipratropium/Albuterol 3 ML NEB EZPAP SCH ×4 (06:56→23:49)
[2022-09-29] MEDS: Mometasone 100 MCG/Formoterol 5 MCG 120 PUFF INHALER INH SCH ×2 (06:57→18:13)
[2022-09-29] MEDS: Saccharomyces boulardii 250 MG CAP PO SCH (09:36)
[2022-09-29] MEDS: Dextrose 5 % And 0.9 % NaCl 1,000 ML IV SCH (09:36)
[2022-09-29] MEDS: Calcitriol 0.25 MCG CAP PO SCH (09:36)
[2022-09-29] MEDS: Pantoprazole 40 MG VIAL IVP SCH (09:36)
[2022-09-29] MEDS: Aspirin Chewable 81 MG TAB PO SCH (09:36)
[2022-09-29] MEDS: Heparin 5,000 UNITS/ML VIAL SC SCH ×3 (09:36→22:29)
[2022-09-29] MEDS: Carvedilol 6.25 MG TAB PO SCH ×2 (09:36→21:52)
[2022-09-29] MEDS: Polyethylene Glycol 3350 17 GM Packet PO SCH (09:36)
[2022-09-29] MEDS: Atorvastatin Calcium 40 MG TAB PO SCH (21:52)
[2022-09-30] MEDS: Acetaminophen 325 MG/10.15 ML UDCUP PO PRN (02:26)
[2022-09-30 06:45] LABS: Anion Gap 20 mmol/L (10-20); BUN (Urea Nitrogen) 49 mg/dL (9.8-20.1); Calc. Creatinine Clearance 20 mL/min (70-130); Calcium 9.1 mg/dL (7.8-10.44); Carbon Dioxide 18 mmol/L (23-31); Chloride 105 mmol/L (98-107); Estimated GFR 9; Glucose 127 mg/dL (80-115); Potassium 4.3 mmol/L (3.5-5.1); Sodium 139 mmol/L (136-145)
[2022-09-30] MEDS: Mometasone 100 MCG/Formoterol 5 MCG 120 PUFF INHALER INH SCH ×2 (06:53→18:24)
[2022-09-30] MEDS: Ipratropium/Albuterol 3 ML NEB EZPAP SCH ×3 (06:53→18:15)
[2022-09-30] MEDS: Aspirin Chewable 81 MG TAB PO SCH (09:04)
[2022-09-30] MEDS: hydrALAZINE 25 MG TAB PO SCH ×3 (09:04→20:53)
[2022-09-30] MEDS: Saccharomyces boulardii 250 MG CAP PO SCH (09:04)
[2022-09-30] MEDS: Carvedilol 6.25 MG TAB PO SCH ×2 (09:04→20:54)
[2022-09-30] MEDS: Polyethylene Glycol 3350 17 GM Packet PO SCH (09:04)
[2022-09-30] MEDS: Pantoprazole 40 MG VIAL IVP SCH (09:04)
[2022-09-30] MEDS: Heparin 5,000 UNITS/ML VIAL SC SCH ×3 (09:04→20:54)
[2022-09-30] MEDS: Calcitriol 0.25 MCG CAP PO SCH (09:04)
[2022-09-30] MEDS: Atorvastatin Calcium 40 MG TAB PO SCH (20:53)
[2022-10-01] MEDS: Ipratropium/Albuterol 3 ML NEB EZPAP SCH ×2 (00:03→06:45)
[2022-10-01] MEDS: Mometasone 100 MCG/Formoterol 5 MCG 120 PUFF INHALER INH SCH ×2 (06:45→18:28)
[2022-10-01 07:56] LABS: Anion Gap 22 mmol/L (10-20); BUN (Urea Nitrogen) 67 mg/dL (9.8-20.1); Calc. Creatinine Clearance 15 mL/min (70-130); Calcium 9.3 mg/dL (7.8-10.44); Carbon Dioxide 19 mmol/L (23-31); Chloride 104 mmol/L (98-107); Estimated GFR 6; Glucose 102 mg/dL (80-115); Potassium 4.1 mmol/L (3.5-5.1); Sodium 141 mmol/L (136-145)
[2022-10-01] MEDS: Heparin 5,000 UNITS/ML VIAL SC SCH (08:57)
[2022-10-01] MEDS: Pantoprazole 40 MG VIAL IVP SCH (08:57)
[2022-10-01] MEDS: Aspirin Chewable 81 MG TAB PO SCH (08:58)
[2022-10-01] MEDS: Calcitriol 0.25 MCG CAP PO SCH (08:58)
[2022-10-01] MEDS: Saccharomyces boulardii 250 MG CAP PO SCH (08:58)
[2022-10-01] MEDS: Carvedilol 6.25 MG TAB PO SCH (08:58)
[2022-10-01] MEDS: hydrALAZINE 25 MG TAB PO SCH ×2 (08:59→13:18)
[2022-10-01] MEDS: Polyethylene Glycol 3350 17 GM Packet PO SCH (08:59)
[2022-10-01] MEDS ORDERED: Iopamidol-370 76% 500 ML 1 ML ONE ×2 (09:23→09:25)
[2022-10-01 09:58] LABS: Actual Bicarbonate (HCO3a) 23.6 mEq/L (22-28); Base Excess (BEa) -1.8 mEq/L (-2.0 to +3.0); CO2 Tension 42.8 mmHg (35.0-45.0); Calcium, Ionized (arterial) 1.14 mmol/L (1.12-1.30); Carboxyhemoglobin (COHb) 0.9 gm% (0.0-3.0); Hemoglobin (Hb) 11.4 g/dL (12.0-16.0); O2 Tension (PaO2), arterial 93.2 mmHg (> 80.0); Potassium - ABG Lab 4.67 mmol/L (3.70-5.30); pH, Arterial 7.36 (7.35-7.45)
[2022-10-01] MEDS ORDERED: Tenecteplase 50 MG ONE (10:02)
[2022-10-01 10:06] LABS: Puncture Site RRA
[2022-10-01 10:07] LABS: #Eosinphils 0.1 thou/uL (0.0-0.7); #Lymphocytes 0.6 thou/uL (1.20-3.40); #Monocytes 0.3 thou/uL (0.11-0.59); #Neutrophils 6.9 thou/uL (1.40-6.50); %Eosinophils 1.8 % (0.0-10.0); %Lymphocytes 7.7 % (21.0-51.0); %Neutrophils 86.6 % (42.0-75.0); Hemoglobin 10.8 g/dL (12.0-16.0); Mean Corpuscular HGB CONC 32.8 g/dL (32.0-36.0); Mean Corpuscular Hemoglobin 32.9 pg (27.0-31.0); Mean Platelet Volume 8.5 fL (7.4-10.4); Platelet Count 146 10x3/uL (130-400); RBC Distribution Width 13.4 % (11.5-14.5); Red Blood Cell (RBC) Count 3.29 mill/uL (4.20-5.40); White Blood Cell (WBC) Count 7.9 10x3/uL (4.8-10.8)
[2022-10-01] MEDS ORDERED: LORazepam 2 MG/ML SYR.(CARPUJECT) ONE (10:15)
[2022-10-01] MEDS ORDERED: levETIRAcetam 500 MG/5 ML VIAL ONE (10:17)
[2022-10-01] MEDS ORDERED: Rocuronium Bromide 10 MG/ML (10ML VIAL) ONE (10:19)
[2022-10-01] MEDS ORDERED: Fentanyl 100 MCG/2 ML VIAL ONE (10:22)
[2022-10-01] MEDS ORDERED: Midazolam HCl 2 mg/2 ml Vial ONE (10:30)
[2022-10-01 10:35] LABS: Troponin I 0.211 ng/mL (< 0.028)
[2022-10-01] MEDS ORDERED: Fentanyl CADD 100 ML ONE (10:49)
[2022-10-01] MEDS: Ipratropium/Albuterol 3 ML NEB NEB SCH ×4 (11:02→21:34)
[2022-10-01] MEDS ORDERED: niCARdipine 25 MG in Sodium Chloride 0.9% 250 ML 250 ML IVPB SCH (11:15)
[2022-10-01] MEDS ORDERED: DISCONTINUE PREVIOUS NARCOTIC PAIN MEDICATIONS AND BENZODIAZEPINES FS SCH (11:30)
[2022-10-01] MEDS ORDERED: Propofol BOLUS 1,000 MG/100 ML VIAL IV PRN (11:30)
[2022-10-01] MEDS ORDERED: Fentanyl BOLUS 250 ML IVPB PRN (11:30)
[2022-10-01] MEDS ORDERED: Morphine 4 MG/ML VIAL SLOW IVP PRN (11:30)
[2022-10-01] MEDS ORDERED: hydrALAZINE 20 MG/ML VIAL SLOW IVP PRN (11:34)
[2022-10-01] MEDS ORDERED: Communication Order-Pharmacy FS SCH (11:34)
[2022-10-01] MEDS: Ventilator Sedation Protocol 1 EACH FS SCH (11:35)
[2022-10-01 11:40] LABS: Actual Bicarbonate (HCO3a) 23.5 mEq/L (22-28); Base Excess (BEa) -3.3 mEq/L (-2.0 to +3.0); CO2 Tension 49.8 mmHg (35.0-45.0); Calcium, Ionized (arterial) 1.17 mmol/L (1.12-1.30); Carboxyhemoglobin (COHb) 0.8 gm% (0.0-3.0); Hemoglobin (Hb) 10.9 g/dL (12.0-16.0); Potassium - ABG Lab 4.45 mmol/L (3.70-5.30); pH, Arterial 7.29 (7.35-7.45)
[2022-10-01] MEDS: Fentanyl CADD 100 ML IV SCH (11:42)
[2022-10-01 11:45] LABS: Puncture Site RRA
[2022-10-01] MEDS ORDERED: Rocuronium Bromide 50 MG/5 ML VIAL ONE (12:49)
[2022-10-01] MEDS ORDERED: Vecuronium 10 MG VIAL IVP SCH (13:00)
[2022-10-01] MEDS ORDERED: Vecuronium 10 MG VIAL IVP PRN (13:00)
[2022-10-01] MEDS: Sodium Chloride 0.9% 1,000 ML IV SCH (13:07)
[2022-10-01] MEDS: Midazolam HCl 2 mg/2 ml Vial SLOW IVP PRN (13:07)
[2022-10-01] MEDS: Propofol 1,000 MG/100 ML VIAL IV PRN ×2 (13:11→17:39)
[2022-10-01] MEDS: Atorvastatin Calcium 40 MG TAB PO SCH (20:10)
[2022-10-01] MEDS: Fosphenytoin Sodium 200 MG in Sodium Chloride 0.9% 50 ML IVPB SCH (20:49)
[2022-10-01] MEDS ORDERED: Famotidine/PF 20 mg/2ml Vial SLOW IVP SCH (21:00)
[2022-10-02] MEDS: Ipratropium/Albuterol 3 ML NEB NEB SCH ×6 (01:45→21:28)
[2022-10-02] MEDS: Propofol 1,000 MG/100 ML VIAL IV PRN ×7 (01:46→20:08)
[2022-10-02] MEDS ORDERED: Fentanyl CADD 100 ML ONE (03:33)
[2022-10-02] MEDS: Fentanyl CADD 100 ML IV SCH ×2 (03:37→22:31)
[2022-10-02] MEDS: Midazolam HCl 2 mg/2 ml Vial SLOW IVP PRN ×2 (03:38→10:41)
[2022-10-02] MEDS: Mometasone 100 MCG/Formoterol 5 MCG 120 PUFF INHALER INH SCH ×2 (07:38→18:30)
[2022-10-02 07:43] LABS: Actual Bicarbonate (HCO3a) 22.7 mEq/L (22-28); Base Excess (BEa) -1.1 mEq/L (-2.0 to +3.0); CO2 Tension 34.5 mmHg (35.0-45.0); Calcium, Ionized (arterial) 1.08 mmol/L (1.12-1.30); Carboxyhemoglobin (COHb) 0.6 gm% (0.0-3.0); Hemoglobin (Hb) 9.7 g/dL (12.0-16.0); O2 Tension (PaO2), arterial 83.2 mmHg (> 80.0); pH, Arterial 7.44 (7.35-7.45)
[2022-10-02 07:44] LABS: ALV-art Gradient 158.875 mmHg (0-20); Puncture Site RRA
[2022-10-02] MEDS: Saccharomyces boulardii 250 MG CAP PO SCH (08:32)
[2022-10-02] MEDS: Calcitriol 0.25 MCG CAP PO SCH (08:32)
[2022-10-02] MEDS: Polyethylene Glycol 3350 17 GM Packet PO SCH (08:32)
[2022-10-02] MEDS: Sodium Chloride 0.9% 1,000 ML IV SCH (08:33)
[2022-10-02] MEDS: Pantoprazole 40 MG VIAL IVP SCH (08:33)
[2022-10-02] MEDS: Fosphenytoin Sodium 200 MG in Sodium Chloride 0.9% 50 ML IVPB SCH ×2 (08:34→21:07)
[2022-10-02] MEDS: Ventilator Sedation Protocol 1 EACH FS SCH (08:46)
[2022-10-02 12:21] LABS: #Eosinphils 0.3 thou/uL (0.0-0.7); #Lymphocytes 0.8 thou/uL (1.20-3.40); #Monocytes 0.4 thou/uL (0.11-0.59); #Neutrophils 4.4 thou/uL (1.40-6.50); %Basophils 0.2 % (0.0-1.0); %Eosinophils 5.8 % (0.0-10.0); %Lymphocytes 13.4 % (21.0-51.0); %Monocytes 6.5 % (0.0-10.0); %Neutrophils 74.2 % (42.0-75.0); Hemoglobin 9.4 g/dL (12.0-16.0); Mean Corpuscular Hemoglobin 33.3 pg (27.0-31.0); Mean Platelet Volume 8.8 fL (7.4-10.4); Platelet Count 119 10x3/uL (130-400); RBC Distribution Width 13.5 % (11.5-14.5); Red Blood Cell (RBC) Count 2.81 mill/uL (4.20-5.40)
[2022-10-02 12:27] LABS: Dilantin 10.6 ug/mL (10.0-20.0)
[2022-10-02 12:34] LABS: ALT (SGPT) Less than 7 U/L (8-55); AST (SGOT) 20 U/L (5-34); Albumin 3.1 g/dL (3.4-4.8); Alkaline Phosphatase 76 U/L (40-110); Anion Gap 21 mmol/L (10-20); BUN (Urea Nitrogen) 79 mg/dL (9.8-20.1); Calc. Creatinine Clearance 13 mL/min (70-130); Calcium 8.3 mg/dL (7.8-10.44); Carbon Dioxide 17 mmol/L (23-31); Cardiac Risk 3.8 (Less than 4.5); Chloride 102 mmol/L (98-107); Cholesterol 76 mg/dl (< 200 Desired); Estimated GFR 5; Globulin 2.5 g/dL (2.4-3.5); Glucose 77 mg/dL (80-115); HDL Cholesterol 20 mg/dL (>60 Neg Risk); LDL Cholesterol, Calculated 11 mg/dL; Potassium 4.3 mmol/L (3.5-5.1); Protein, Total 5.6 g/dL (5.8-8.1); Sodium 136 mmol/L (136-145); Triglycerides 225 mg/dL (Less than 150)
[2022-10-02 13:40] LABS: CKMB 2.5 ng/mL (0-6.6)
[2022-10-02] MEDS ORDERED: Aspirin 300 MG Suppository PR SCH (14:00)
[2022-10-02] MEDS: Albumin 25% 25 GM/100 ML BOT IVPB SCH ×2 (15:23→16:58)
[2022-10-02] MEDS: Atorvastatin Calcium 40 MG TAB PO SCH (20:08)
[2022-10-03] MEDS: Ipratropium/Albuterol 3 ML NEB NEB SCH ×6 (00:05→21:37)
[2022-10-03] MEDS: Propofol 1,000 MG/100 ML VIAL IV PRN ×5 (01:02→18:18)
[2022-10-03] MEDS: Dextrose 50% Abboject 50 ML SYRINGE SLOW IVP PRN (04:20)
[2022-10-03] MEDS: Sodium Chloride 0.9% 1,000 ML IV SCH (04:23)
[2022-10-03 05:50] LABS: #Eosinphils 0.2 thou/uL (0.0-0.7); #Lymphocytes 0.8 thou/uL (1.20-3.40); #Monocytes 0.4 thou/uL (0.11-0.59); #Neutrophils 5.9 thou/uL (1.40-6.50); %Eosinophils 2.2 % (0.0-10.0); %Lymphocytes 10.6 % (21.0-51.0); %Monocytes 5.9 % (0.0-10.0); %Neutrophils 81.3 % (42.0-75.0); Hemoglobin 8.4 g/dL (12.0-16.0); Mean Corpuscular HGB CONC 32.6 g/dL (32.0-36.0); Mean Corpuscular Hemoglobin 33.1 pg (27.0-31.0); Mean Platelet Volume 8.4 fL (7.4-10.4); Platelet Count 134 10x3/uL (130-400); RBC Distribution Width 13.6 % (11.5-14.5); Red Blood Cell (RBC) Count 2.52 mill/uL (4.20-5.40); White Blood Cell (WBC) Count 7.2 10x3/uL (4.8-10.8)
[2022-10-03 06:18] LABS: Anion Gap 19 mmol/L (10-20); BUN (Urea Nitrogen) 45 mg/dL (9.8-20.1); Calc. Creatinine Clearance 19 mL/min (70-130); Calcium 8.3 mg/dL (7.8-10.44); Carbon Dioxide 21 mmol/L (23-31); Chloride 99 mmol/L (98-107); Estimated GFR 8; Glucose 124 mg/dL (80-115); Potassium 3.8 mmol/L (3.5-5.1); Sodium 135 mmol/L (136-145)
[2022-10-03] MEDS: Mometasone 100 MCG/Formoterol 5 MCG 120 PUFF INHALER INH SCH ×2 (07:27→18:23)
[2022-10-03 07:48] LABS: Actual Bicarbonate (HCO3a) 25.9 mEq/L (22-28); Base Excess (BEa) 1.7 mEq/L (-2.0 to +3.0); CO2 Tension 38.4 mmHg (35.0-45.0); Calcium, Ionized (arterial) 1.03 mmol/L (1.12-1.30); Carboxyhemoglobin (COHb) 1.1 gm% (0.0-3.0); Hemoglobin (Hb) 8.3 g/dL (12.0-16.0); O2 Tension (PaO2), arterial 72.5 mmHg (> 80.0); Potassium - ABG Lab 3.39 mmol/L (3.70-5.30); pH, Arterial 7.45 (7.35-7.45)
[2022-10-03 08:00] LABS: Puncture Site RRA
[2022-10-03] MEDS ORDERED: Aspirin 300 MG Suppository PR SCH (09:00)
[2022-10-03] MEDS: Pantoprazole 40 MG VIAL IVP SCH (10:02)
[2022-10-03] MEDS: Fosphenytoin Sodium 200 MG in Sodium Chloride 0.9% 50 ML IVPB SCH ×2 (10:02→21:29)
[2022-10-03] MEDS: Polyethylene Glycol 3350 17 GM Packet PO SCH (10:08)
[2022-10-03] MEDS: Calcitriol 0.25 MCG CAP PO SCH (10:08)
[2022-10-03] MEDS: Ventilator Sedation Protocol 1 EACH FS SCH (12:25)
[2022-10-03] MEDS: Heparin 5,000 UNITS/ML VIAL SC SCH ×2 (16:21→21:29)
[2022-10-03] MEDS ORDERED: Fentanyl CADD 100 ML ONE (18:10)
[2022-10-03] MEDS: Fentanyl CADD 100 ML IV SCH (18:12)
[2022-10-03] MEDS: Atorvastatin Calcium 40 MG TAB PO SCH (21:29)
[2022-10-04] MEDS: Propofol 1,000 MG/100 ML VIAL IV PRN ×3 (00:03→11:15)
[2022-10-04] MEDS: Sodium Chloride 0.9% 1,000 ML IV SCH ×2 (00:03→21:51)
[2022-10-04] MEDS: Ipratropium/Albuterol 3 ML NEB NEB SCH ×6 (01:47→21:30)
[2022-10-04 03:43] LABS: #Eosinphils 0.2 thou/uL (0.0-0.7); #Lymphocytes 0.9 thou/uL (1.20-3.40); #Monocytes 0.4 thou/uL (0.11-0.59); #Neutrophils 6.1 thou/uL (1.40-6.50); %Basophils 0.1 % (0.0-1.0); %Eosinophils 2.6 % (0.0-10.0); %Lymphocytes 11.7 % (21.0-51.0); %Monocytes 5.2 % (0.0-10.0); %Neutrophils 80.4 % (42.0-75.0); Hemoglobin 8.4 g/dL (12.0-16.0); Mean Corpuscular HGB CONC 33.3 g/dL (32.0-36.0); Mean Corpuscular Hemoglobin 33.2 pg (27.0-31.0); Mean Corpuscular Volume 99.6 fl (78.0-98.0); Mean Platelet Volume 8.5 fL (7.4-10.4); Platelet Count 122 10x3/uL (130-400); RBC Distribution Width 13.7 % (11.5-14.5); Red Blood Cell (RBC) Count 2.52 mill/uL (4.20-5.40); White Blood Cell (WBC) Count 7.5 10x3/uL (4.8-10.8)
[2022-10-04 03:53] LABS: Anion Gap 22 mmol/L (10-20); BUN (Urea Nitrogen) 52 mg/dL (9.8-20.1); Calc. Creatinine Clearance 15 mL/min (70-130); Calcium 8.2 mg/dL (7.8-10.44); Carbon Dioxide 18 mmol/L (23-31); Chloride 100 mmol/L (98-107); Estimated GFR 6; Glucose 110 mg/dL (80-115); Potassium 3.7 mmol/L (3.5-5.1); Sodium 136 mmol/L (136-145)
[2022-10-04] MEDS: Mometasone 100 MCG/Formoterol 5 MCG 120 PUFF INHALER INH SCH ×2 (07:01→18:39)
[2022-10-04] MEDS: Heparin 5,000 UNITS/ML VIAL SC SCH ×3 (08:53→21:50)
[2022-10-04] MEDS: Calcitriol 0.25 MCG CAP PO SCH (08:53)
[2022-10-04] MEDS: Pantoprazole 40 MG VIAL IVP SCH (08:53)
[2022-10-04] MEDS: Aspirin 325 MG TAB PER TUBE SCH (08:53)
[2022-10-04] MEDS: Polyethylene Glycol 3350 17 GM Packet PO SCH (08:53)
[2022-10-04] MEDS: Fosphenytoin Sodium 200 MG in Sodium Chloride 0.9% 50 ML IVPB SCH ×2 (09:25→21:51)
[2022-10-04] MEDS: Ventilator Sedation Protocol 1 EACH FS SCH (12:07)
[2022-10-04] MEDS ORDERED: Albumin 25% 25 GM/100 ML BOT IVPB SCH (15:45)
[2022-10-04] MEDS ORDERED: CEFAZOLIN 2 GM in Sodium Chloride 0.9% 100 ML IVPB SCH (18:15)
[2022-10-04] MEDS: Atorvastatin Calcium 40 MG TAB PO SCH (21:50)
[2022-10-05] MEDS: Ipratropium/Albuterol 3 ML NEB NEB SCH ×6 (02:04→21:52)
[2022-10-05 03:53] LABS: #Eosinphils 0.1 thou/uL (0.0-0.7); #Lymphocytes 0.6 thou/uL (1.20-3.40); #Monocytes 0.3 thou/uL (0.11-0.59); #Neutrophils 3.9 thou/uL (1.40-6.50); %Basophils 0.1 % (0.0-1.0); %Eosinophils 2.9 % (0.0-10.0); %Lymphocytes 12.2 % (21.0-51.0); %Monocytes 6.5 % (0.0-10.0); %Neutrophils 78.2 % (42.0-75.0); Hemoglobin 8.9 g/dL (12.0-16.0); Mean Corpuscular HGB CONC 34.2 g/dL (32.0-36.0); Mean Corpuscular Hemoglobin 34.7 pg (27.0-31.0); Mean Platelet Volume 8.2 fL (7.4-10.4); Platelet Count 123 10x3/uL (130-400); RBC Distribution Width 13.5 % (11.5-14.5); Red Blood Cell (RBC) Count 2.57 mill/uL (4.20-5.40); White Blood Cell (WBC) Count 4.9 10x3/uL (4.8-10.8)
[2022-10-05 04:10] LABS: Anion Gap 20 mmol/L (10-20); BUN (Urea Nitrogen) 34 mg/dL (9.8-20.1); Calc. Creatinine Clearance 21 mL/min (70-130); Calcium 8.7 mg/dL (7.8-10.44); Carbon Dioxide 22 mmol/L (23-31); Chloride 99 mmol/L (98-107); Estimated GFR 10; Glucose 132 mg/dL (80-115); Potassium 4.1 mmol/L (3.5-5.1); Sodium 137 mmol/L (136-145)
[2022-10-05] MEDS: Mometasone 100 MCG/Formoterol 5 MCG 120 PUFF INHALER INH SCH ×2 (07:08→18:27)
[2022-10-05] MEDS: Fosphenytoin Sodium 200 MG in Sodium Chloride 0.9% 50 ML IVPB SCH ×2 (08:54→20:51)
[2022-10-05] MEDS: Polyethylene Glycol 3350 17 GM Packet PO SCH ×2 (08:55→09:16)
[2022-10-05] MEDS: Calcitriol 0.25 MCG CAP PO SCH (08:55)
[2022-10-05] MEDS: Aspirin 325 MG TAB PER TUBE SCH (08:55)
[2022-10-05] MEDS: Pantoprazole 40 MG VIAL IVP SCH (08:55)
[2022-10-05] MEDS: Heparin 5,000 UNITS/ML VIAL SC SCH ×3 (08:55→20:51)
[2022-10-05] MEDS: EPOETIN ALFA-EPBX (ESRD) 10,000 UNIT/ML VIAL SC SCH (09:15)
[2022-10-05] MEDS: Senokot S 8.6-50 MG TAB PO SCH ×2 (09:16→20:52)
[2022-10-05] MEDS: Ventilator Sedation Protocol 1 EACH FS SCH (16:57)
[2022-10-05] MEDS: Atorvastatin Calcium 40 MG TAB PO SCH (20:52)
[2022-10-06] MEDS: Ipratropium/Albuterol 3 ML NEB NEB SCH ×6 (02:09→22:41)
[2022-10-06] MEDS ORDERED: Fentanyl 100 MCG/2 ML VIAL SLOW IVP SCH (02:45)
[2022-10-06 04:23] LABS: #Eosinphils 0.2 thou/uL (0.0-0.7); #Lymphocytes 0.4 thou/uL (1.20-3.40); #Monocytes 0.3 thou/uL (0.11-0.59); #Neutrophils 3.2 thou/uL (1.40-6.50); %Eosinophils 4.8 % (0.0-10.0); %Lymphocytes 10.2 % (21.0-51.0); %Monocytes 7.9 % (0.0-10.0); %Neutrophils 77.2 % (42.0-75.0); Hemoglobin 9.4 g/dL (12.0-16.0); Mean Corpuscular HGB CONC 32.9 g/dL (32.0-36.0); Mean Corpuscular Hemoglobin 33.2 pg (27.0-31.0); Mean Platelet Volume 8.3 fL (7.4-10.4); Platelet Count 166 10x3/uL (130-400); RBC Distribution Width 13.5 % (11.5-14.5); Red Blood Cell (RBC) Count 2.83 mill/uL (4.20-5.40); White Blood Cell (WBC) Count 4.1 10x3/uL (4.8-10.8)
[2022-10-06 04:45] LABS: Anion Gap 22 mmol/L (10-20); BUN (Urea Nitrogen) 44 mg/dL (9.8-20.1); Calc. Creatinine Clearance 19 mL/min (70-130); Calcium 8.8 mg/dL (7.8-10.44); Carbon Dioxide 21 mmol/L (23-31); Chloride 98 mmol/L (98-107); Estimated GFR 8; Glucose 87 mg/dL (80-115); Potassium 4.3 mmol/L (3.5-5.1); Sodium 137 mmol/L (136-145)
[2022-10-06] MEDS: Mometasone 100 MCG/Formoterol 5 MCG 120 PUFF INHALER INH SCH ×2 (07:04→18:37)
[2022-10-06] MEDS: Heparin 5,000 UNITS/ML VIAL SC SCH ×3 (08:17→21:20)
[2022-10-06] MEDS: Pantoprazole 40 MG VIAL IVP SCH (08:17)
[2022-10-06] MEDS: Polyethylene Glycol 3350 17 GM Packet PO SCH (08:18)
[2022-10-06] MEDS: Aspirin 325 MG TAB PER TUBE SCH (08:18)
[2022-10-06] MEDS: Calcitriol 0.25 MCG CAP PO SCH (08:18)
[2022-10-06] MEDS: Senokot S 8.6-50 MG TAB PO SCH ×2 (08:19→21:21)
[2022-10-06] MEDS: Fosphenytoin Sodium 200 MG in Sodium Chloride 0.9% 50 ML IVPB SCH ×2 (08:23→22:03)
[2022-10-06] MEDS: Ventilator Sedation Protocol 1 EACH FS SCH (13:08)
[2022-10-06] MEDS: Labetalol HCl 100 MG/20 ML VIAL SLOW IVP PRN (17:46)
[2022-10-06] MEDS: Atorvastatin Calcium 40 MG TAB PO SCH (21:21)
[2022-10-07] MEDS: Ipratropium/Albuterol 3 ML NEB NEB SCH ×6 (02:34→23:00)
[2022-10-07 03:30] LABS: #Eosinphils 0.3 thou/uL (0.0-0.7); #Lymphocytes 0.4 thou/uL (1.20-3.40); #Monocytes 0.3 thou/uL (0.11-0.59); #Neutrophils 3.1 thou/uL (1.40-6.50); %Basophils 0.1 % (0.0-1.0); %Eosinophils 6.2 % (0.0-10.0); %Lymphocytes 9.2 % (21.0-51.0); %Monocytes 8.4 % (0.0-10.0); %Neutrophils 76.2 % (42.0-75.0); Hemoglobin 8.9 g/dL (12.0-16.0); Mean Corpuscular HGB CONC 33.7 g/dL (32.0-36.0); Mean Corpuscular Hemoglobin 34.5 pg (27.0-31.0); Mean Platelet Volume 7.6 fL (7.4-10.4); Platelet Count 218 10x3/uL (130-400); RBC Distribution Width 13.2 % (11.5-14.5); Red Blood Cell (RBC) Count 2.57 mill/uL (4.20-5.40); White Blood Cell (WBC) Count 4.1 10x3/uL (4.8-10.8)
[2022-10-07 04:00] LABS: Anion Gap 21 mmol/L (10-20); BUN (Urea Nitrogen) 31 mg/dL (9.8-20.1); Calc. Creatinine Clearance 22 mL/min (70-130); Calcium 9.3 mg/dL (7.8-10.44); Carbon Dioxide 24 mmol/L (23-31); Chloride 100 mmol/L (98-107); Estimated GFR 10; Glucose 78 mg/dL (80-115); Potassium 4.1 mmol/L (3.5-5.1); Sodium 141 mmol/L (136-145)
[2022-10-07] MEDS: Mometasone 100 MCG/Formoterol 5 MCG 120 PUFF INHALER INH SCH ×2 (06:29→18:41)
[2022-10-07] MEDS: Aspirin 325 MG TAB PER TUBE SCH (09:37)
[2022-10-07] MEDS: Calcitriol 0.25 MCG CAP PO SCH (09:37)
[2022-10-07] MEDS: Fosphenytoin Sodium 200 MG in Sodium Chloride 0.9% 50 ML IVPB SCH ×2 (09:37→20:23)
[2022-10-07] MEDS: Pantoprazole 40 MG VIAL IVP SCH (09:37)
[2022-10-07] MEDS: Senokot S 8.6-50 MG TAB PO SCH ×2 (09:38→20:23)
[2022-10-07] MEDS: Polyethylene Glycol 3350 17 GM Packet PO SCH (09:38)
[2022-10-07] MEDS: Heparin 5,000 UNITS/ML VIAL SC SCH ×3 (09:39→20:23)
[2022-10-07] MEDS: Ventilator Sedation Protocol 1 EACH FS SCH (11:05)
[2022-10-07] MEDS: Dextrose 5 %-0.45 % NaCl 1,000 ML IV SCH (11:05)
[2022-10-07] MEDS: Labetalol HCl 100 MG/20 ML VIAL SLOW IVP PRN ×3 (11:12→20:24)
[2022-10-07] MEDS: Ondansetron PF 4 MG/2 ML Vial IVP PRN (17:06)
[2022-10-07] MEDS: Atorvastatin Calcium 40 MG TAB PO SCH (20:22)
[2022-10-08] MEDS: Ipratropium/Albuterol 3 ML NEB NEB SCH ×6 (02:42→22:29)
[2022-10-08 04:24] LABS: #Eosinphils 0.2 thou/uL (0.0-0.7); #Lymphocytes 0.5 thou/uL (1.20-3.40); #Monocytes 0.5 thou/uL (0.11-0.59); #Neutrophils 3.1 thou/uL (1.40-6.50); %Eosinophils 5.2 % (0.0-10.0); %Lymphocytes 10.5 % (21.0-51.0); %Monocytes 11.9 % (0.0-10.0); %Neutrophils 72.5 % (42.0-75.0); Hemoglobin 8.9 g/dL (12.0-16.0); Mean Corpuscular HGB CONC 32.1 g/dL (32.0-36.0); Mean Platelet Volume 7.4 fL (7.4-10.4); Platelet Count 224 10x3/uL (130-400); RBC Distribution Width 13.3 % (11.5-14.5); Red Blood Cell (RBC) Count 2.71 mill/uL (4.20-5.40); White Blood Cell (WBC) Count 4.3 10x3/uL (4.8-10.8)
[2022-10-08 04:45] LABS: Anion Gap 18 mmol/L (10-20); BUN (Urea Nitrogen) 39 mg/dL (9.8-20.1); Calc. Creatinine Clearance 18 mL/min (70-130); Calcium 9.2 mg/dL (7.8-10.44); Carbon Dioxide 26 mmol/L (23-31); Chloride 99 mmol/L (98-107); Estimated GFR 7; Glucose 118 mg/dL (80-115); Potassium 4.2 mmol/L (3.5-5.1); Sodium 139 mmol/L (136-145)
[2022-10-08] MEDS: Dextrose 5 %-0.45 % NaCl 1,000 ML IV SCH (05:07)
[2022-10-08] MEDS: Mometasone 100 MCG/Formoterol 5 MCG 120 PUFF INHALER INH SCH ×2 (07:15→18:36)
[2022-10-08] MEDS: Labetalol HCl 100 MG/20 ML VIAL SLOW IVP PRN ×2 (08:00→14:11)
[2022-10-08] MEDS: Pantoprazole 40 MG VIAL IVP SCH (09:41)
[2022-10-08] MEDS: Fosphenytoin Sodium 150 MG in Sodium Chloride 0.9% 50 ML IVPB SCH ×2 (09:42→22:06)
[2022-10-08] MEDS: Heparin 5,000 UNITS/ML VIAL SC SCH ×3 (09:42→21:47)
[2022-10-08] MEDS: Aspirin 325 MG TAB PER TUBE SCH (09:57)
[2022-10-08] MEDS: Calcitriol 0.25 MCG CAP PO SCH (09:57)
[2022-10-08] MEDS: Polyethylene Glycol 3350 17 GM Packet PO SCH (11:08)
[2022-10-08] MEDS: Senokot S 8.6-50 MG TAB PO SCH ×2 (11:09→21:46)
[2022-10-08] MEDS: methylPREDNISolone Sod Succ 40 MG VIAL IVP SCH ×2 (12:19→17:41)
[2022-10-08] MEDS: Atorvastatin Calcium 40 MG TAB PO SCH (21:46)
[2022-10-09] MEDS: methylPREDNISolone Sod Succ 40 MG VIAL IVP SCH ×5 (00:18→22:43)
[2022-10-09] MEDS: Ipratropium/Albuterol 3 ML NEB NEB SCH ×6 (02:42→21:24)
[2022-10-09] MEDS: Dextrose 5 %-0.45 % NaCl 1,000 ML IV SCH (04:20)
[2022-10-09] MEDS: Mometasone 100 MCG/Formoterol 5 MCG 120 PUFF INHALER INH SCH ×2 (07:37→18:18)
[2022-10-09 08:06] LABS: Anion Gap 21 mmol/L (10-20); BUN (Urea Nitrogen) 49 mg/dL (9.8-20.1); Calc. Creatinine Clearance 15 mL/min (70-130); Calcium 9.2 mg/dL (7.8-10.44); Carbon Dioxide 22 mmol/L (23-31); Chloride 99 mmol/L (98-107); Estimated GFR 6; Glucose 132 mg/dL (80-115); Sodium 137 mmol/L (136-145)
[2022-10-09] MEDS: Heparin 5,000 UNITS/ML VIAL SC SCH ×3 (08:15→22:43)
[2022-10-09] MEDS: Pantoprazole 40 MG VIAL IVP SCH (08:15)
[2022-10-09] MEDS: Aspirin 325 MG TAB PER TUBE SCH (08:16)
[2022-10-09] MEDS: Calcitriol 0.25 MCG CAP PO SCH (08:16)
[2022-10-09] MEDS: Fosphenytoin Sodium 150 MG in Sodium Chloride 0.9% 50 ML IVPB SCH ×2 (08:17→22:42)
[2022-10-09] MEDS: Polyethylene Glycol 3350 17 GM Packet PO SCH (08:17)
[2022-10-09] MEDS: Senokot S 8.6-50 MG TAB PO SCH ×2 (08:41→22:44)
[2022-10-09] MEDS: Atorvastatin Calcium 40 MG TAB PO SCH (22:43)
[2022-10-10] MEDS: Ipratropium/Albuterol 3 ML NEB NEB SCH ×6 (02:42→22:31)
[2022-10-10] MEDS: methylPREDNISolone Sod Succ 40 MG VIAL IVP SCH ×4 (04:47→23:53)
[2022-10-10 06:28] LABS: #Eosinphils 0.2 thou/uL (0.0-0.7); #Lymphocytes 0.5 thou/uL (1.20-3.40); #Monocytes 0.3 thou/uL (0.11-0.59); %Basophils 0.3 % (0.0-1.0); %Eosinophils 5.3 % (0.0-10.0); %Lymphocytes 13.2 % (21.0-51.0); %Monocytes 7.1 % (0.0-10.0); %Neutrophils 74.2 % (42.0-75.0); Hemoglobin 8.6 g/dL (12.0-16.0); Mean Corpuscular HGB CONC 32.9 g/dL (32.0-36.0); Mean Corpuscular Hemoglobin 33.3 pg (27.0-31.0); Mean Platelet Volume 6.9 fL (7.4-10.4); Platelet Count 271 10x3/uL (130-400); RBC Distribution Width 13.3 % (11.5-14.5); Red Blood Cell (RBC) Count 2.58 mill/uL (4.20-5.40); White Blood Cell (WBC) Count 4.1 10x3/uL (4.8-10.8)
[2022-10-10 06:34] LABS: Hemoglobin 8.7 g/dL (12.0-16.0); Mean Corpuscular HGB CONC 32.5 g/dL (32.0-36.0); Mean Corpuscular Hemoglobin 33.1 pg (27.0-31.0); Platelet Count 278 10x3/uL (130-400); RBC Distribution Width 13.4 % (11.5-14.5); Red Blood Cell (RBC) Count 2.63 mill/uL (4.20-5.40); White Blood Cell (WBC) Count 4.1 10x3/uL (4.8-10.8)
[2022-10-10 06:52] LABS: ALT (SGPT) 9 U/L (8-55); AST (SGOT) 26 U/L (5-34); Albumin 3.4 g/dL (3.4-4.8); Alkaline Phosphatase 93 U/L (40-110); Anion Gap 19 mmol/L (10-20); BUN (Urea Nitrogen) 32 mg/dL (9.8-20.1); Bilirubin, Total 0.6 mg/dL (0.2-1.2); Calc. Creatinine Clearance 20 mL/min (70-130); Calcium 9.1 mg/dL (7.8-10.44); Carbon Dioxide 23 mmol/L (23-31); Chloride 98 mmol/L (98-107); Estimated GFR 9; Globulin 3.1 g/dL (2.4-3.5); Glucose 113 mg/dL (80-115); Magnesium 1.9 mg/dL (1.6-2.6); Potassium 3.9 mmol/L (3.5-5.1); Protein, Total 6.5 g/dL (5.8-8.1); Sodium 136 mmol/L (136-145)
[2022-10-10] MEDS: Mometasone 100 MCG/Formoterol 5 MCG 120 PUFF INHALER INH SCH ×2 (07:41→19:08)
[2022-10-10] MEDS: Calcitriol 0.25 MCG CAP PO SCH (09:47)
[2022-10-10] MEDS: Pantoprazole 40 MG VIAL IVP SCH (09:47)
[2022-10-10] MEDS: Aspirin 325 MG TAB PER TUBE SCH (09:47)
[2022-10-10] MEDS: Heparin 5,000 UNITS/ML VIAL SC SCH ×3 (09:48→20:22)
[2022-10-10] MEDS: Polyethylene Glycol 3350 17 GM Packet PO SCH (09:48)
[2022-10-10] MEDS: Fosphenytoin Sodium 150 MG in Sodium Chloride 0.9% 50 ML IVPB SCH ×2 (09:48→20:22)
[2022-10-10] MEDS: Senokot S 8.6-50 MG TAB PO SCH ×2 (09:49→20:23)
[2022-10-10] MEDS ORDERED: Guaifenesin DM 100-10/5 ML UDCUP PO PRN (12:00)
[2022-10-10] MEDS: Atorvastatin Calcium 40 MG TAB PO SCH (20:22)
[2022-10-11] MEDS: Ipratropium/Albuterol 3 ML NEB NEB SCH ×6 (02:19→22:29)
[2022-10-11] MEDS: methylPREDNISolone Sod Succ 40 MG VIAL IVP SCH ×3 (05:14→20:02)
[2022-10-11 06:22] LABS: #Eosinphils 0.2 thou/uL (0.0-0.7); #Lymphocytes 0.7 thou/uL (1.20-3.40); #Monocytes 0.5 thou/uL (0.11-0.59); #Neutrophils 3.5 thou/uL (1.40-6.50); %Basophils 0.4 % (0.0-1.0); %Eosinophils 3.1 % (0.0-10.0); %Lymphocytes 13.8 % (21.0-51.0); %Monocytes 10.3 % (0.0-10.0); %Neutrophils 72.3 % (42.0-75.0); Mean Corpuscular HGB CONC 31.8 g/dL (32.0-36.0); Mean Corpuscular Hemoglobin 32.5 pg (27.0-31.0); Mean Platelet Volume 7.1 fL (7.4-10.4); Platelet Count 308 10x3/uL (130-400); RBC Distribution Width 13.6 % (11.5-14.5); Red Blood Cell (RBC) Count 2.78 mill/uL (4.20-5.40); White Blood Cell (WBC) Count 4.9 10x3/uL (4.8-10.8)
[2022-10-11 06:36] LABS: Anion Gap 19 mmol/L (10-20); BUN (Urea Nitrogen) 42 mg/dL (9.8-20.1); Calc. Creatinine Clearance 17 mL/min (70-130); Carbon Dioxide 25 mmol/L (23-31); Chloride 99 mmol/L (98-107); Potassium 4.4 mmol/L (3.5-5.1); Sodium 139 mmol/L (136-145)
[2022-10-11 06:37] LABS: Calcium 9.6 mg/dL (7.8-10.44); Estimated GFR 7; Glucose 125 mg/dL (80-115)
[2022-10-11] MEDS: Mometasone 100 MCG/Formoterol 5 MCG 120 PUFF INHALER INH SCH ×2 (06:45→18:40)
[2022-10-11] MEDS: Fosphenytoin Sodium 150 MG in Sodium Chloride 0.9% 50 ML IVPB SCH ×2 (14:11→19:30)
[2022-10-11] MEDS: Polyethylene Glycol 3350 17 GM Packet PO SCH (14:11)
[2022-10-11] MEDS: Senokot S 8.6-50 MG TAB PO SCH ×2 (14:11→20:04)
[2022-10-11] MEDS: Heparin 5,000 UNITS/ML VIAL SC SCH ×3 (14:11→20:01)
[2022-10-11] MEDS: Aspirin 325 MG TAB PO SCH (14:28)
[2022-10-11] MEDS: Pantoprazole 40 MG VIAL IVP SCH (14:28)
[2022-10-11] MEDS: Calcitriol 0.25 MCG CAP PO SCH (14:28)
[2022-10-11 19:15] LABS: Actual Bicarbonate (HCO3a) 23.7 mEq/L (22-28); Base Excess (BEa) -1.6 mEq/L (-2.0 to +3.0); CO2 Tension 42.6 mmHg (35.0-45.0); Calcium, Ionized (arterial) 1.17 mmol/L (1.12-1.30); Carboxyhemoglobin (COHb) 0.9 gm% (0.0-3.0); Hemoglobin (Hb) 10.5 g/dL (12.0-16.0); O2 Tension (PaO2), arterial 64.2 mmHg (> 80.0); Potassium - ABG Lab 4.48 mmol/L (3.70-5.30); pH, Arterial 7.36 (7.35-7.45)
[2022-10-11 19:17] LABS: Puncture Site RRA
[2022-10-11] MEDS: Atorvastatin Calcium 40 MG TAB PO SCH (20:01)
[2022-10-12] MEDS: Ipratropium/Albuterol 3 ML NEB NEB SCH ×6 (02:43→21:55)
[2022-10-12 05:59] LABS: #Eosinphils 0.3 thou/uL (0.0-0.7); #Lymphocytes 0.7 thou/uL (1.20-3.40); #Monocytes 0.3 thou/uL (0.11-0.59); #Neutrophils 2.4 thou/uL (1.40-6.50); %Basophils 0.6 % (0.0-1.0); %Lymphocytes 18.5 % (21.0-51.0); %Monocytes 6.8 % (0.0-10.0); %Neutrophils 66.2 % (42.0-75.0); Hemoglobin 8.9 g/dL (12.0-16.0); Mean Corpuscular Hemoglobin 33.4 pg (27.0-31.0); Mean Platelet Volume 6.9 fL (7.4-10.4); Platelet Count 306 10x3/uL (130-400); RBC Distribution Width 13.6 % (11.5-14.5); Red Blood Cell (RBC) Count 2.66 mill/uL (4.20-5.40); White Blood Cell (WBC) Count 3.7 10x3/uL (4.8-10.8)
[2022-10-12 06:27] LABS: Anion Gap 18 mmol/L (10-20); BUN (Urea Nitrogen) 24 mg/dL (9.8-20.1); Calc. Creatinine Clearance 26 mL/min (70-130); Calcium 9.2 mg/dL (7.8-10.44); Carbon Dioxide 25 mmol/L (23-31); Chloride 100 mmol/L (98-107); Estimated GFR 11; Glucose 102 mg/dL (80-115); Potassium 3.7 mmol/L (3.5-5.1); Sodium 139 mmol/L (136-145)
[2022-10-12] MEDS: Mometasone 100 MCG/Formoterol 5 MCG 120 PUFF INHALER INH SCH ×2 (07:40→18:39)
[2022-10-12] MEDS: Fosphenytoin Sodium 150 MG in Sodium Chloride 0.9% 50 ML IVPB SCH ×2 (09:22→21:05)
[2022-10-12] MEDS: Pantoprazole 40 MG VIAL IVP SCH (09:22)
[2022-10-12] MEDS: methylPREDNISolone Sod Succ 40 MG VIAL IVP SCH ×2 (09:24→21:06)
[2022-10-12] MEDS: Calcitriol 0.25 MCG CAP PO SCH (09:25)
[2022-10-12] MEDS: Aspirin 325 MG TAB PO SCH (09:25)
[2022-10-12] MEDS: Heparin 5,000 UNITS/ML VIAL SC SCH ×3 (09:25→21:05)
[2022-10-12] MEDS: Polyethylene Glycol 3350 17 GM Packet PO SCH (09:53)
[2022-10-12] MEDS: Senokot S 8.6-50 MG TAB PO SCH (09:53)
[2022-10-12] MEDS: EPOETIN ALFA-EPBX (ESRD) 10,000 UNIT/ML VIAL SC SCH (12:49)
[2022-10-12] MEDS: Acetaminophen 325 MG/10.15 ML UDCUP PO PRN (12:50)
[2022-10-12] MEDS: Atorvastatin Calcium 40 MG TAB PO SCH (21:05)
[2022-10-13] MEDS: Ipratropium/Albuterol 3 ML NEB NEB SCH ×6 (02:21→21:40)
[2022-10-13] MEDS: Senokot S 8.6-50 MG TAB PO SCH ×3 (03:06→21:24)
[2022-10-13] MEDS: Mometasone 100 MCG/Formoterol 5 MCG 120 PUFF INHALER INH SCH ×2 (09:20→18:43)
[2022-10-13] MEDS: Polyethylene Glycol 3350 17 GM Packet PO SCH (11:09)
[2022-10-13] MEDS: Heparin 5,000 UNITS/ML VIAL SC SCH ×3 (11:09→21:23)
[2022-10-13] MEDS: Fosphenytoin Sodium 150 MG in Sodium Chloride 0.9% 50 ML IVPB SCH ×2 (11:09→21:23)
[2022-10-13] MEDS: methylPREDNISolone Sod Succ 40 MG VIAL IVP SCH (11:09)
[2022-10-13] MEDS ORDERED: Heparin 10,000 UNITS/ 10 ML VIAL ONE (12:34)
[2022-10-13] MEDS: Aspirin 325 MG TAB PO SCH (12:53)
[2022-10-13] MEDS: Calcitriol 0.25 MCG CAP PO SCH (12:54)
[2022-10-13] MEDS: Pantoprazole 40 MG VIAL IVP SCH (12:54)
[2022-10-13] MEDS: Atorvastatin Calcium 40 MG TAB PO SCH (21:23)
[2022-10-14] MEDS: Ipratropium/Albuterol 3 ML NEB NEB SCH ×5 (02:41→18:08)
[2022-10-14] MEDS: Mometasone 100 MCG/Formoterol 5 MCG 120 PUFF INHALER INH SCH ×2 (06:39→18:09)
[2022-10-14] MEDS: Fosphenytoin Sodium 150 MG in Sodium Chloride 0.9% 50 ML IVPB SCH ×2 (09:35→21:22)
[2022-10-14] MEDS: Pantoprazole 40 MG VIAL IVP SCH (09:35)
[2022-10-14] MEDS: Aspirin 325 MG TAB PO SCH (09:36)
[2022-10-14] MEDS: methylPREDNISolone Sod Succ 40 MG VIAL IVP SCH (09:36)
[2022-10-14] MEDS: Heparin 5,000 UNITS/ML VIAL SC SCH ×3 (09:36→21:23)
[2022-10-14] MEDS: Calcitriol 0.25 MCG CAP PO SCH (09:36)
[2022-10-14] MEDS: Senokot S 8.6-50 MG TAB PO SCH ×2 (09:41→21:23)
[2022-10-14] MEDS: Polyethylene Glycol 3350 17 GM Packet PO SCH (09:41)
[2022-10-14] MEDS: Atorvastatin Calcium 40 MG TAB PO SCH (21:23)
[2022-10-15] MEDS: Ipratropium/Albuterol 3 ML NEB NEB SCH ×4 (00:57→18:44)
[2022-10-15] MEDS: Mometasone 100 MCG/Formoterol 5 MCG 120 PUFF INHALER INH SCH ×2 (07:08→18:46)
[2022-10-15] MEDS: Polyethylene Glycol 3350 17 GM Packet PO SCH (08:39)
[2022-10-15] MEDS: Senokot S 8.6-50 MG TAB PO SCH ×2 (08:40→20:31)
[2022-10-15] MEDS: Aspirin 325 MG TAB PO SCH ×2 (08:40→10:27)
[2022-10-15] MEDS: Calcitriol 0.25 MCG CAP PO SCH ×2 (08:40→10:26)
[2022-10-15] MEDS: methylPREDNISolone Sod Succ 40 MG VIAL IVP SCH (08:41)
[2022-10-15] MEDS: Fosphenytoin Sodium 150 MG in Sodium Chloride 0.9% 50 ML IVPB SCH ×2 (08:44→20:31)
[2022-10-15] MEDS: Pantoprazole 40 MG VIAL IVP SCH (08:47)
[2022-10-15] MEDS: Heparin 5,000 UNITS/ML VIAL SC SCH ×3 (10:22→20:31)
[2022-10-15] MEDS: Acetaminophen 325 MG/10.15 ML UDCUP PO PRN (13:07)
[2022-10-15] MEDS: Atorvastatin Calcium 40 MG TAB PO SCH (20:31)
[2022-10-16] MEDS: Ipratropium/Albuterol 3 ML NEB NEB SCH ×4 (01:06→19:20)
[2022-10-16] MEDS: Mometasone 100 MCG/Formoterol 5 MCG 120 PUFF INHALER INH SCH ×2 (07:21→19:23)
[2022-10-16] MEDS: Pantoprazole 40 MG VIAL IVP SCH (09:15)
[2022-10-16] MEDS: methylPREDNISolone Sod Succ 40 MG VIAL IVP SCH (09:15)
[2022-10-16] MEDS: Heparin 5,000 UNITS/ML VIAL SC SCH ×3 (09:15→19:58)
[2022-10-16] MEDS: Aspirin 325 MG TAB PO SCH (09:16)
[2022-10-16] MEDS: Fosphenytoin Sodium 150 MG in Sodium Chloride 0.9% 50 ML IVPB SCH ×2 (09:16→19:58)
[2022-10-16] MEDS: Calcitriol 0.25 MCG CAP PO SCH (09:28)
[2022-10-16] MEDS: Polyethylene Glycol 3350 17 GM Packet PO SCH (10:43)
[2022-10-16] MEDS: Senokot S 8.6-50 MG TAB PO SCH ×2 (10:43→19:56)
[2022-10-16] MEDS ORDERED: Heparin 10,000 UNITS/ 10 ML VIAL ONE (11:12)
[2022-10-16 13:29] VITALS: BMI 43.6
[2022-10-16] MEDS: Atorvastatin Calcium 40 MG TAB PO SCH (19:58)
[2022-10-17] MEDS: Ipratropium/Albuterol 3 ML NEB NEB SCH ×4 (00:35→18:15)
[2022-10-17 07:05] LABS: #Eosinphils 0.1 thou/uL (0.0-0.7); #Lymphocytes 0.8 thou/uL (1.20-3.40); #Monocytes 0.4 thou/uL (0.11-0.59); #Neutrophils 2.9 thou/uL (1.40-6.50); %Basophils 0.6 % (0.0-1.0); %Eosinophils 2.4 % (0.0-10.0); %Lymphocytes 18.8 % (21.0-51.0); %Neutrophils 69.3 % (42.0-75.0); Hemoglobin 8.4 g/dL (12.0-16.0); Mean Corpuscular HGB CONC 32.7 g/dL (32.0-36.0); Mean Corpuscular Hemoglobin 33.8 pg (27.0-31.0); Mean Platelet Volume 6.8 fL (7.4-10.4); Platelet Count 185 10x3/uL (130-400); RBC Distribution Width 14.6 % (11.5-14.5); Red Blood Cell (RBC) Count 2.48 mill/uL (4.20-5.40); White Blood Cell (WBC) Count 4.2 10x3/uL (4.8-10.8)
[2022-10-17] MEDS: Mometasone 100 MCG/Formoterol 5 MCG 120 PUFF INHALER INH SCH ×2 (07:13→18:27)
[2022-10-17 07:25] LABS: Anion Gap 17 mmol/L (10-20); BUN (Urea Nitrogen) 33 mg/dL (9.8-20.1); Calc. Creatinine Clearance 20 mL/min (70-130); Calcium 9.2 mg/dL (7.8-10.44); Carbon Dioxide 26 mmol/L (23-31); Chloride 100 mmol/L (98-107); Estimated GFR 8; Glucose 152 mg/dL (80-115); Sodium 139 mmol/L (136-145)
[2022-10-17] MEDS: methylPREDNISolone Sod Succ 40 MG VIAL IVP SCH (09:09)
[2022-10-17] MEDS: Fosphenytoin Sodium 150 MG in Sodium Chloride 0.9% 50 ML IVPB SCH ×2 (09:09→20:27)
[2022-10-17] MEDS: Senokot S 8.6-50 MG TAB PO SCH ×2 (09:10→20:29)
[2022-10-17] MEDS: Heparin 5,000 UNITS/ML VIAL SC SCH ×3 (09:10→20:28)
[2022-10-17] MEDS: Calcitriol 0.25 MCG CAP PO SCH (09:10)
[2022-10-17] MEDS: Aspirin 325 MG TAB PO SCH (09:10)
[2022-10-17] MEDS: Pantoprazole 40 MG VIAL IVP SCH (09:11)
[2022-10-17] MEDS: Polyethylene Glycol 3350 17 GM Packet PO SCH (09:15)
[2022-10-17] MEDS ORDERED: EPOETIN ALFA-EPBX (ESRD) 10,000 UNIT/ML VIAL SC SCH (12:00)
[2022-10-17] MEDS: Atorvastatin Calcium 40 MG TAB PO SCH (20:28)
[2022-10-18] MEDS: Ipratropium/Albuterol 3 ML NEB NEB SCH ×4 (00:11→19:44)
[2022-10-18 07:01] LABS: #Eosinphils 0.2 thou/uL (0.0-0.7); #Monocytes 0.4 thou/uL (0.11-0.59); #Neutrophils 2.7 thou/uL (1.40-6.50); %Basophils 0.5 % (0.0-1.0); %Eosinophils 3.6 % (0.0-10.0); %Lymphocytes 22.6 % (21.0-51.0); %Monocytes 8.6 % (0.0-10.0); %Neutrophils 64.7 % (42.0-75.0); Hemoglobin 8.5 g/dL (12.0-16.0); Mean Corpuscular HGB CONC 32.4 g/dL (32.0-36.0); Mean Corpuscular Hemoglobin 33.4 pg (27.0-31.0); Mean Platelet Volume 7.4 fL (7.4-10.4); Platelet Count 188 10x3/uL (130-400); RBC Distribution Width 14.7 % (11.5-14.5); Red Blood Cell (RBC) Count 2.54 mill/uL (4.20-5.40); White Blood Cell (WBC) Count 4.2 10x3/uL (4.8-10.8)
[2022-10-18 07:19] LABS: Anion Gap 19 mmol/L (10-20); BUN (Urea Nitrogen) 48 mg/dL (9.8-20.1); Calc. Creatinine Clearance 16 mL/min (70-130); Calcium 9.5 mg/dL (7.8-10.44); Carbon Dioxide 24 mmol/L (23-31); Chloride 101 mmol/L (98-107); Estimated GFR 6; Glucose 124 mg/dL (80-115); Potassium 4.2 mmol/L (3.5-5.1); Sodium 140 mmol/L (136-145)
[2022-10-18] MEDS: Mometasone 100 MCG/Formoterol 5 MCG 120 PUFF INHALER INH SCH ×2 (07:38→19:45)
[2022-10-18] MEDS ORDERED: Heparin 10,000 UNITS/ 10 ML VIAL ONE (08:41)
[2022-10-18] MEDS: Fosphenytoin Sodium 150 MG in Sodium Chloride 0.9% 50 ML IVPB SCH ×2 (08:44→20:42)
[2022-10-18] MEDS: methylPREDNISolone Sod Succ 40 MG VIAL IVP SCH (08:44)
[2022-10-18] MEDS: Aspirin 325 MG TAB PO SCH (08:45)
[2022-10-18] MEDS: Pantoprazole 40 MG VIAL IVP SCH (08:45)
[2022-10-18] MEDS: Polyethylene Glycol 3350 17 GM Packet PO SCH (08:45)
[2022-10-18] MEDS: Senokot S 8.6-50 MG TAB PO SCH ×2 (08:45→20:41)
[2022-10-18] MEDS: Heparin 5,000 UNITS/ML VIAL SC SCH ×3 (08:45→20:43)
[2022-10-18] MEDS: Calcitriol 0.25 MCG CAP PO SCH (08:45)
[2022-10-18] MEDS: Chloraseptic Spray 180 ml Bottle PO PRN (18:37)
[2022-10-18] MEDS: Atorvastatin Calcium 40 MG TAB PO SCH (20:41)
[2022-10-19] MEDS: Ipratropium/Albuterol 3 ML NEB NEB SCH ×4 (01:35→13:38)
[2022-10-19] MEDS: Mometasone 100 MCG/Formoterol 5 MCG 120 PUFF INHALER INH SCH (07:26)
[2022-10-19] MEDS: Fosphenytoin Sodium 150 MG in Sodium Chloride 0.9% 50 ML IVPB SCH (09:04)
[2022-10-19] MEDS: Heparin 5,000 UNITS/ML VIAL SC SCH ×2 (09:04→15:28)
[2022-10-19] MEDS: methylPREDNISolone Sod Succ 40 MG VIAL IVP SCH (09:04)
[2022-10-19] MEDS: Polyethylene Glycol 3350 17 GM Packet PO SCH (09:05)
[2022-10-19] MEDS: Aspirin 325 MG TAB PO SCH (09:05)
[2022-10-19] MEDS: Senokot S 8.6-50 MG TAB PO SCH (09:05)
[2022-10-19] MEDS: Calcitriol 0.25 MCG CAP PO SCH (09:05)
[2022-10-19] MEDS: Pantoprazole 40 MG VIAL IVP SCH (09:06)
[2022-10-19] MEDS: Chloraseptic Spray 180 ml Bottle PO PRN (11:14)
[2022-10-19 17:15] VITALS: BP 99/62; TEMP 98.4
[2022-10-20] MEDS ORDERED: Aspirin 81 mg Enteric Coated Tablet PO SCH (09:00)
== END 2022-10-19 17:29 | DRG 492 ==
LOC: ERS 15:24 → ERHOLD 17:05 → OBSVTOIN 19:44 → CCU 22:09 → SURG A 09-28 11:01 → CCU 10-01 10:36 → SURG A 10-09 22:18 → T4-B 10-18 23:19
PROVIDERS: ADMIT Hospitalist; ATTEND Hospitalist
PROC: 5A1955Z Respiratory Ventilation, Greater than 96 Consecutive Hours (ICD-10-PCS; 2022-09-12)
PROC: 3E03329 Introduction of Other Anti-infective into Peripheral Vein, Percutaneous Approach (ICD-10-PCS; 2022-09-12)
PROC: 0D9670Z Drainage of Stomach with Drainage Device, Via Natural or Artificial Opening (ICD-10-PCS; 2022-09-12)
PROC: 3E0G76Z Introduction of Nutritional Substance into Upper GI, Via Natural or Artificial Opening (ICD-10-PCS; 2022-09-12)
PROC: 0BH17EZ Insertion of Endotracheal Airway into Trachea, Via Natural or Artificial Opening (ICD-10-PCS; 2022-09-12)
PROC: 5A1D70Z Performance of Urinary Filtration, Intermittent, Less than 6 Hours Per Day (ICD-10-PCS; 2022-09-13)
PROC: 3E033XZ Introduction of Vasopressor into Peripheral Vein, Percutaneous Approach (ICD-10-PCS; 2022-09-21)
PROC: 5A09357 Assistance with Respiratory Ventilation, Less than 24 Consecutive Hours, Continuous Positive Airway Pressure (ICD-10-PCS; 2022-09-22)
PROC: 0QSG04Z Reposition Right Tibia with Internal Fixation Device, Open Approach (ICD-10-PCS; principal; 2022-09-24)
PROC: 5A1955Z Respiratory Ventilation, Greater than 96 Consecutive Hours (ICD-10-PCS; 2022-10-01)
PROC: 3E03317 Introduction of Other Thrombolytic into Peripheral Vein, Percutaneous Approach (ICD-10-PCS; 2022-10-01)
PROC: 0BH17EZ Insertion of Endotracheal Airway into Trachea, Via Natural or Artificial Opening (ICD-10-PCS; 2022-10-01)
PROC: 5A09357 Assistance with Respiratory Ventilation, Less than 24 Consecutive Hours, Continuous Positive Airway Pressure (ICD-10-PCS; 2022-10-05)
DX: S82.51XA Displaced fracture of medial malleolus of right tibia, initial encounter for closed fracture (principal); A41.9 Sepsis, unspecified organism; G92.8 Other toxic encephalopathy; I63.9 Cerebral infarction, unspecified; J96.21 Acute and chronic respiratory failure with hypoxia; I50.31 Acute diastolic (congestive) heart failure; N18.6 End stage renal disease; R57.8 Other shock; J18.9 Pneumonia, unspecified organism; Z68.41 Body mass index [BMI] 40.0-44.9, adult; I13.2 Hypertensive heart and chronic kidney disease with heart failure and with stage 5 chronic kidney disease, or end stage renal disease; G81.91 Hemiplegia, unspecified affecting right dominant side; E87.4 Mixed disorder of acid-base balance; N25.81 Secondary hyperparathyroidism of renal origin; G61.81 Chronic inflammatory demyelinating polyneuritis; J44.1 Chronic obstructive pulmonary disease with (acute) exacerbation; J44.0 Chronic obstructive pulmonary disease with (acute) lower respiratory infection; K56.7 Ileus, unspecified; Z66 Do not resuscitate; Z20.822 Contact with and (suspected) exposure to COVID-19; F17.210 Nicotine dependence, cigarettes, uncomplicated; R29.810 Facial weakness; E78.5 Hyperlipidemia, unspecified; E66.01 Morbid (severe) obesity due to excess calories; R77.8 Other specified abnormalities of plasma proteins; E11.40 Type 2 diabetes mellitus with diabetic neuropathy, unspecified; E11.22 Type 2 diabetes mellitus with diabetic chronic kidney disease; W18.30XA Fall on same level, unspecified, initial encounter; D63.1 Anemia in chronic kidney disease; I65.22 Occlusion and stenosis of left carotid artery; E87.5 Hyperkalemia; D69.6 Thrombocytopenia, unspecified; I35.0 Nonrheumatic aortic (valve) stenosis; E11.43 Type 2 diabetes mellitus with diabetic autonomic (poly)neuropathy; K31.84 Gastroparesis; K21.9 Gastro-esophageal reflux disease without esophagitis; G89.29 Other chronic pain; I27.20 Pulmonary hypertension, unspecified; G71.11 Myotonic muscular dystrophy; J98.6 Disorders of diaphragm; G47.33 Obstructive sleep apnea (adult) (pediatric); K59.00 Constipation, unspecified; E87.6 Hypokalemia; R13.12 Dysphagia, oropharyngeal phase; R29.702 NIHSS score 2; E11.65 Type 2 diabetes mellitus with hyperglycemia; Z99.2 Dependence on renal dialysis; Z71.6 Tobacco abuse counseling; Z88.5 Allergy status to narcotic agent; Z91.010 Allergy to peanuts; Z91.013 Allergy to seafood; Z88.8 Allergy status to other drugs, medicaments and biological substances; Z91.018 Allergy to other foods; Z79.899 Other long term (current) drug therapy; Z79.4 Long term (current) use of insulin; Z79.82 Long term (current) use of aspirin; Z83.3 Family history of diabetes mellitus; Z82.49 Family history of ischemic heart disease and other diseases of the circulatory system
CPT/HCPCS: 29515; 31500; 36415; 36416; 36600; 51702; 70450; 70496; 71045; 71250; 71275; 74018; 74230; 80048; 80053; 80061; 80185; 80306; 80307; 81003; 81015; 82140; 82553; 82805; 83036; 83605; 83735; 83880; 83970; 84100; 84145; 84443; 84484; 85025; 85027; 86704; 87040; 87070; 87086; 87205; 87631; 87811; 90935; 93005; 93306; 93880; 94002; 94003; 94640; 94660; 94760; 95712; 95819; 95957; 96374; C1713; C9113; G0257; G0378; J0696; J1644; J1815; J1953; J1956; J2060; J2250; J2270; J2405; J2543; J2704; J2765; J2920; J3010; J3101; J3480; J3490; J7042; J7050; J7611; J7620; J7999; P9047; Q2009; Q5105; Q9967; S0028; U0003; U0005

== ENCOUNTER 2022-12-31 12:22 | Emergency (ER) | payer OTHER ==
[~2022-12-31 12:22] MED LIST: Heparin 10,000 UNITS/ 10 ML VIAL ONE
[2022-12-31 13:27] LABS: #Basophils 0.1 thou/uL (0.0-0.2); #Eosinphils 0.2 thou/uL (0.0-0.7); #Monocytes 0.4 thou/uL (0.11-0.59); #Neutrophils 6.4 thou/uL (1.40-6.50); %Basophils 0.9 % (0.0-1.0); %Eosinophils 1.9 % (0.0-10.0); %Lymphocytes 12.7 % (21.0-51.0); %Monocytes 5.2 % (0.0-10.0); %Neutrophils 79.3 % (42.0-75.0); Mean Corpuscular HGB CONC 32.7 g/dL (32.0-36.0); Mean Corpuscular Hemoglobin 32.5 pg (27.0-31.0); Mean Corpuscular Volume 99.3 fl (78.0-98.0); Mean Platelet Volume 8.9 fL (7.4-10.4); Platelet Count 194 10x3/uL (130-400); RBC Distribution Width 16.2 % (11.5-14.5)
[2022-12-31 13:55] LABS: ALT (SGPT) 26 U/L (8-55); AST (SGOT) 27 U/L (5-34); Albumin 4.2 g/dL (3.4-4.8); Alkaline Phosphatase 107 U/L (40-110); Anion Gap 28 mmol/L (10-20); BUN (Urea Nitrogen) 87 mg/dL (9.8-20.1); Bilirubin, Total 0.5 mg/dL (0.2-1.2); Calc. Creatinine Clearance 0 mL/min (70-130); Calcium 9.3 mg/dL (7.8-10.44); Carbon Dioxide 17 mmol/L (23-31); Chloride 101 mmol/L (98-107); Estimated GFR 4; Globulin 3.2 g/dL (2.4-3.5); Glucose 122 mg/dL (80-115); Potassium 5.7 mmol/L (3.5-5.1); Protein, Total 7.4 g/dL (5.8-8.1); Sodium 140 mmol/L (136-145)
[2022-12-31 14:11] LABS: CKMB 3.9 ng/mL (0-6.6)
== END 2022-12-31 22:15 ==
LOC: ERS 12:22
DX: E87.70 Fluid overload, unspecified (principal); E87.5 Hyperkalemia; J44.9 Chronic obstructive pulmonary disease, unspecified; E11.40 Type 2 diabetes mellitus with diabetic neuropathy, unspecified; K21.9 Gastro-esophageal reflux disease without esophagitis; F17.210 Nicotine dependence, cigarettes, uncomplicated
CPT/HCPCS: 36415; 71045; 80053; 82553; 83880; 84484; 85025; 93005; J1644

== ENCOUNTER 2023-11-05 14:17 | Inpatient (IN) | payer OTHER ==
[2023-11-05] MEDS ORDERED: methylPREDNISolone Sod Succ/PF 125 MG/2 ML VIAL ONE (16:23)
[2023-11-05] MEDS ORDERED: Magnesium 2 GM/50 ML BAG (IN WATER) ONE (16:23)
[2023-11-05 16:32] LABS: ALT (SGPT) 15 U/L (8-55); AST (SGOT) 14 U/L (5-34); Albumin 3.8 g/dL (3.4-4.8); Alkaline Phosphatase 164 U/L (40-110); Anion Gap 19 mmol/L (10-20); BUN (Urea Nitrogen) 68 mg/dL (9.8-20.1); Bilirubin, Total 0.7 mg/dL (0.2-1.2); Calc. Creatinine Clearance 0 mL/min (70-130); Calcium 9.1 mg/dL (7.8-10.44); Carbon Dioxide 22 mmol/L (23-31); Chloride 100 mmol/L (98-107); Estimated GFR 5; Globulin 3.5 g/dL (2.4-3.5); Glucose 109 mg/dL (80-115); Potassium 4.4 mmol/L (3.5-5.1); Protein, Total 7.3 g/dL (5.8-8.1); Sodium 137 mmol/L (136-145)
[2023-11-05 16:37] LABS: #Eosinphils 0.1 thou/uL (0.0-0.7); #Monocytes 0.5 thou/uL (0.11-0.59); #Neutrophils 3.6 thou/uL (1.40-6.50); %Basophils 0.4 % (0.0-1.0); %Eosinophils 1.8 % (0.0-10.0); %Lymphocytes 17.3 % (21.0-51.0); %Monocytes 9.9 % (0.0-10.0); %Neutrophils 69.6 % (42.0-75.0); Hematocrit 27.9 % (36.0-47.0); Hemoglobin 9.1 g/dL (12.0-16.0); Mean Corpuscular HGB CONC 32.6 g/dL (32.0-36.0); Mean Corpuscular Volume 104.1 fl (78.0-98.0); Mean Platelet Volume 10.2 fL (7.4-10.4); RBC Distribution Width 15.4 % (11.5-14.5); Red Blood Cell (RBC) Count 2.68 mill/uL (4.20-5.40); White Blood Cell (WBC) Count 5.1 10x3/uL (4.8-10.8)
[2023-11-05 16:38] LABS: Platelet Count 116 10x3/uL (130-400)
[2023-11-05 16:42] LABS: Troponin I 0.055 ng/mL (< 0.028)
[2023-11-05] MEDS ORDERED: Ipratropium/Albuterol 3 ML NEB ONE ×2 (16:57→17:33)
[2023-11-05 17:08] LABS: Troponin I 0.068 ng/mL (< 0.028)
[2023-11-05 17:20] LABS: Actual Bicarbonate (HCO3v) 23.3 mEq/L (22-28); Base Excess -4.5 mEq/L (-2.0 to +3.0); Calcium, Ionized (venous) 1.13 mmol/L (1.16-1.32); Chloride (VBG) 98 mmol/L (98-106); Hematocrit-VBG 29 % (36.0-47.0); Hemoglobin (Hb) 9.8 g/dL (11.7-16.0); Potassium (VBG) 4.33 mmol/L (3.70-5.30); Sodium 138 mmol/L (133-146); pH (venous) 7.228 (7.32-7.43)
[2023-11-05] MEDS ORDERED: Ondansetron PF 4 MG/2 ML Vial IVP PRN (18:51)
[2023-11-05] MEDS ORDERED: Guaifenesin DM 100-10/5 ML UDCUP PO PRN (18:51)
[2023-11-05] MEDS ORDERED: Ondansetron ODT 4 MG TAB PO PRN (18:51)
[2023-11-05] MEDS ORDERED: Acetaminophen 650 MG Suppository PR PRN (18:51)
[2023-11-05] MEDS ORDERED: Dextrose 50% Abboject 50 ML SYRINGE SLOW IVP PRN (19:09)
[2023-11-05] MEDS ORDERED: Dextrose 5% in Water 1,000 ML IV PRN (19:09)
[2023-11-05] MEDS ORDERED: HumaLOG 300 UNITS/3 ML VIAL SC PRN (19:09)
[2023-11-05] MEDS ORDERED: Glucagon 1 MG/ML KIT IM PRN (19:09)
[2023-11-05] MEDS ORDERED: Ipratropium/Albuterol 3 ML NEB NEB PRN (19:34)
[2023-11-05] MEDS ORDERED: Meclizine HCl 12.5 MG TAB PO PRN (19:36)
[2023-11-05] MEDS ORDERED: HYDROcodone/Acetaminophen 5/325 mg Tablet PO PRN (19:36)
[2023-11-05] MEDS ORDERED: Albuterol 2.5 MG (3 mL) NEB NEB PRN (19:48)
[2023-11-05 20:06] LABS: Troponin I 0.063 ng/mL (< 0.028)
[2023-11-05 20:42] VITALS: BMI 40.8
[2023-11-05] MEDS ORDERED: Gabapentin 300 MG CAP PO SCH (21:00)
[2023-11-05 21:15] LABS: Glucose 184 mg/dL (80-115)
[2023-11-05 21:16] LABS: Dilantin 2.1 ug/mL (10.0-20.0)
[2023-11-05] MEDS: Atorvastatin Calcium 40 MG TAB PO SCH (21:32)
[2023-11-05] MEDS: Phenytoin Extended Release 100 MG CAP PO SCH (21:32)
[2023-11-05] MEDS: Montelukast Sodium 10 mg Tablet PO SCH (21:32)
[2023-11-05] MEDS: Heparin 5,000 UNITS/ML VIAL SC SCH (21:32)
[2023-11-05] MEDS: Nicotine 14 MG PATCH TD SCH (21:33)
[2023-11-05] MEDS: Ipratropium/Albuterol 3 ML NEB NEB SCH (21:50)
[2023-11-05] MEDS ORDERED: methylPREDNISolone Sod Succ/PF 125 MG/2 ML VIAL IVP SCH (22:00)
[2023-11-05 22:38] LABS: Influenza A by NAA Not Detected (NotDetected); Influenza B by NAA Not Detected (NotDetected); SARS-CoV-2 NAA Rapid Test Not Detected (NotDetected)
[2023-11-06] LABS: Hep B Core Total Ab Non-Reactive (NonReactive); Hep B Core Total Index 0.22 S/CO (0-0.79); Hep B Surf Ag Non-Reactive S/CO (NonReactive); Hep C IgG Ab Non-Reactive S/CO (NonReactive); Hep C Index 0.23 S/CO (0-0.79)
[2023-11-06 00:03] LABS: Troponin I 0.071 ng/mL (< 0.028)
[2023-11-06 00:04] LABS: HBSAB Concentration 39.89 mIU/mL; Hep B Surf AB Reactive (NonReactive)
[2023-11-06] MEDS: LevoFLOXacin 500 mg/D5W 500 MG in Premix 1 BAG IVPB SCH ×2 (01:07→04:40)
[2023-11-06] MEDS: methylPREDNISolone Sod Succ 40 MG VIAL IVP SCH (01:08)
[2023-11-06] MEDS: EPOETIN ALFA-EPBX (ESRD) 10,000 UNITS/ML VIAL SC SCH (01:37)
[2023-11-06] MEDS: LevoFLOXacin 250 mg/D5W 250 MG in Premix 1 BAG IVPB SCH (04:40)
[2023-11-06 05:01] LABS: ALT (SGPT) 18 U/L (8-55); AST (SGOT) 15 U/L (5-34); Alkaline Phosphatase 177 U/L (40-110); Anion Gap 15 mmol/L (10-20); BUN (Urea Nitrogen) 44 mg/dL (9.8-20.1); Bilirubin, Total 0.6 mg/dL (0.2-1.2); Calc. Creatinine Clearance 17 mL/min (70-130); Calcium 9.3 mg/dL (7.8-10.44); Carbon Dioxide 26 mmol/L (23-31); Chloride 100 mmol/L (98-107); Estimated GFR 8; Globulin 3.6 g/dL (2.4-3.5); Glucose 117 mg/dL (80-115); Potassium 4.4 mmol/L (3.5-5.1); Protein, Total 7.6 g/dL (5.8-8.1); Sodium 137 mmol/L (136-145)
[2023-11-06 05:04] LABS: Troponin I 0.068 ng/mL (< 0.028)
[2023-11-06 05:24] LABS: #Monocytes 0.1 thou/uL (0.11-0.59); #Neutrophils 3.7 thou/uL (1.40-6.50); %Basophils 0.2 % (0.0-1.0); %Eosinophils 0.2 % (0.0-10.0); %Lymphocytes 6.5 % (21.0-51.0); %Monocytes 3.4 % (0.0-10.0); Hematocrit 30.2 % (36.0-47.0); Hemoglobin 9.5 g/dL (12.0-16.0); Mean Corpuscular HGB CONC 31.5 g/dL (32.0-36.0); Mean Corpuscular Hemoglobin 32.8 pg (27.0-31.0); Mean Corpuscular Volume 104.1 fl (78.0-98.0); Mean Platelet Volume 10.7 fL (7.4-10.4); Platelet Count 127 10x3/uL (130-400); RBC Distribution Width 15.1 % (11.5-14.5); White Blood Cell (WBC) Count 4.2 10x3/uL (4.8-10.8)
[2023-11-06] MEDS: Mometasone 200 MCG/Formoterol 5 MCG 120 PUFF INHALER INH SCH (06:52)
[2023-11-06] MEDS: Folic Acid/Vit B Comp W-C PO SCH (08:10)
[2023-11-06] MEDS: Sevelamer Carbonate 800 MG TAB PO SCH (08:11)
[2023-11-06] MEDS: Gabapentin 300 MG CAP PO SCH (08:11)
[2023-11-06] MEDS: Aspirin 81 mg Enteric Coated Tablet PO SCH (08:11)
[2023-11-06] MEDS ORDERED: Lidocaine-Prilocaine 2.5% Cream 5 GM TUBE TOP PRN (09:00)
[2023-11-06] MEDS ORDERED: Enoxaparin 40 MG (0.4 mL) SYRINGE SC SCH (09:00)
[2023-11-06 10:24] LABS: Glucose 166 mg/dL (80-115)
[2023-11-06] MEDS: predniSONE 20 MG TAB PO SCH (11:40)
[2023-11-06 18:22] LABS: Glucose 172 mg/dL (80-115)
[2023-11-06 21:56] LABS: Glucose 201 mg/dL (80-115)
[2023-11-06 21:58] LABS: Dilantin 2.1 ug/mL (10.0-20.0)
[2023-11-07 04:19] LABS: #Eosinphils 0.1 thou/uL (0.0-0.7); #Monocytes 0.5 thou/uL (0.11-0.59); #Neutrophils 2.9 thou/uL (1.40-6.50); %Basophils 0.4 % (0.0-1.0); %Eosinophils 1.8 % (0.0-10.0); %Lymphocytes 30.5 % (21.0-51.0); %Monocytes 9.7 % (0.0-10.0); %Neutrophils 56.8 % (42.0-75.0); Hematocrit 28.5 % (36.0-47.0); Hemoglobin 9.1 g/dL (12.0-16.0); Mean Corpuscular HGB CONC 31.9 g/dL (32.0-36.0); Mean Corpuscular Volume 103.3 fl (78.0-98.0); Mean Platelet Volume 10.3 fL (7.4-10.4); Platelet Count 135 10x3/uL (130-400); RBC Distribution Width 15.2 % (11.5-14.5); Red Blood Cell (RBC) Count 2.76 mill/uL (4.20-5.40); White Blood Cell (WBC) Count 5.1 10x3/uL (4.8-10.8)
[2023-11-07 04:53] LABS: ALT (SGPT) 17 U/L (8-55); AST (SGOT) 16 U/L (5-34); Albumin 3.7 g/dL (3.4-4.8); Alkaline Phosphatase 164 U/L (40-110); Anion Gap 19 mmol/L (10-20); BUN (Urea Nitrogen) 72 mg/dL (9.8-20.1); Bilirubin, Total 0.4 mg/dL (0.2-1.2); Calc. Creatinine Clearance 12 mL/min (70-130); Carbon Dioxide 24 mmol/L (23-31); Chloride 98 mmol/L (98-107); Estimated GFR 5; Globulin 3.3 g/dL (2.4-3.5); Glucose 128 mg/dL (80-115); Potassium 4.9 mmol/L (3.5-5.1); Sodium 136 mmol/L (136-145)
[2023-11-07] MEDS: Acetaminophen 325 MG TAB PO PRN (06:14)
[2023-11-07] MEDS: Carvedilol 6.25 MG TAB PO SCH (07:53)
[2023-11-07] MEDS: predniSONE 20 MG TAB PO SCH (07:53)
[2023-11-07] MEDS: Ipratropium/Albuterol 3 ML NEB NEB SCH ×2 (10:09→12:27)
[2023-11-07] MEDS: Albumin 25% 25 GM (100 mL) BOT IVPB SCH (12:21)
[2023-11-07] MEDS ORDERED: LevoFLOXacin 250 mg/D5W 250 MG in Premix 1 BAG IVPB SCH (22:00)
[2023-11-08 04:55] LABS: #Eosinphils 0.2 thou/uL (0.0-0.7); #Monocytes 0.5 thou/uL (0.11-0.59); #Neutrophils 3.3 thou/uL (1.40-6.50); %Basophils 0.4 % (0.0-1.0); %Lymphocytes 28.1 % (21.0-51.0); %Monocytes 8.1 % (0.0-10.0); %Neutrophils 59.5 % (42.0-75.0); Hematocrit 28.3 % (36.0-47.0); Hemoglobin 9.1 g/dL (12.0-16.0); Mean Corpuscular HGB CONC 32.2 g/dL (32.0-36.0); Mean Corpuscular Hemoglobin 33.2 pg (27.0-31.0); Mean Corpuscular Volume 103.3 fl (78.0-98.0); Platelet Count 151 10x3/uL (130-400); RBC Distribution Width 15.4 % (11.5-14.5); Red Blood Cell (RBC) Count 2.74 mill/uL (4.20-5.40); White Blood Cell (WBC) Count 5.6 10x3/uL (4.8-10.8)
[2023-11-08 05:23] LABS: ALT (SGPT) 18 U/L (8-55); AST (SGOT) 16 U/L (5-34); Albumin 4.1 g/dL (3.4-4.8); Alkaline Phosphatase 147 U/L (40-110); Anion Gap 13 mmol/L (10-20); BUN (Urea Nitrogen) 36 mg/dL (9.8-20.1); Bilirubin, Total 0.4 mg/dL (0.2-1.2); Calc. Creatinine Clearance 17 mL/min (70-130); Calcium 9.1 mg/dL (7.8-10.44); Carbon Dioxide 31 mmol/L (23-31); Chloride 97 mmol/L (98-107); Estimated GFR 8; Globulin 3.1 g/dL (2.4-3.5); Glucose 118 mg/dL (80-115); Potassium 3.8 mmol/L (3.5-5.1); Protein, Total 7.2 g/dL (5.8-8.1); Sodium 137 mmol/L (136-145)
[2023-11-08 09:48] VITALS: TEMP 98.4
[2023-11-08] MEDS: LevoFLOXacin 250 MG TAB PO SCH (11:48)
[2023-11-08] MEDS: HumaLOG 300 UNITS/3 ML VIAL SC PRN (11:55)
[2023-11-08 12:33] VITALS: BP 104/51
== END 2023-11-08 14:00 | disposition home or self-care (01) | DRG 189 ==
LOC: ERS 14:17 → ERHOLD 17:23 → IMCU/EMU 20:18
PROVIDERS: ADMIT Student in an Organized Health Care Education/Training Program; ATTEND Student in an Organized Health Care Education/Training Program
PROC: 5A1D70Z Performance of Urinary Filtration, Intermittent, Less than 6 Hours Per Day (ICD-10-PCS; principal; 2023-11-05)
PROC: 5A09357 Assistance with Respiratory Ventilation, Less than 24 Consecutive Hours, Continuous Positive Airway Pressure (ICD-10-PCS; 2023-11-05)
PROC: 30233J1 Transfusion of Nonautologous Serum Albumin into Peripheral Vein, Percutaneous Approach (ICD-10-PCS; 2023-11-07)
DX: J96.21 Acute and chronic respiratory failure with hypoxia (principal); G93.41 Metabolic encephalopathy; I21.A1 Myocardial infarction type 2; N18.6 End stage renal disease; G45.9 Transient cerebral ischemic attack, unspecified; I13.2 Hypertensive heart and chronic kidney disease with heart failure and with stage 5 chronic kidney disease, or end stage renal disease; J44.1 Chronic obstructive pulmonary disease with (acute) exacerbation; I50.32 Chronic diastolic (congestive) heart failure; K21.9 Gastro-esophageal reflux disease without esophagitis; E11.22 Type 2 diabetes mellitus with diabetic chronic kidney disease; E11.40 Type 2 diabetes mellitus with diabetic neuropathy, unspecified; M06.9 Rheumatoid arthritis, unspecified; F32.A Depression, unspecified; F41.9 Anxiety disorder, unspecified; F17.210 Nicotine dependence, cigarettes, uncomplicated; R79.89 Other specified abnormal findings of blood chemistry; G47.33 Obstructive sleep apnea (adult) (pediatric); G40.909 Epilepsy, unspecified, not intractable, without status epilepticus; D63.1 Anemia in chronic kidney disease; D53.9 Nutritional anemia, unspecified; Z91.013 Allergy to seafood; Z91.010 Allergy to peanuts; Z88.5 Allergy status to narcotic agent; Z79.899 Other long term (current) drug therapy; Z98.890 Other specified postprocedural states; Z98.891 History of uterine scar from previous surgery; Z99.2 Dependence on renal dialysis; Z79.4 Long term (current) use of insulin; Z11.52 Encounter for screening for COVID-19
CPT/HCPCS: 36415; 36416; 70450; 70551; 71045; 80053; 80185; 82607; 82805; 82947; 83880; 84145; 84484; 85025; 86704; 87040; 87633; 90935; 93005; 94640; 94760; 96374; G0257; J1644; J1956; J2920; J2930; J3475; J7512; J7620; Q5105

== ENCOUNTER 2024-10-10 16:06 | Emergency (ER) | payer OTHER ==
[~2024-10-10 16:06] MED LIST changes: -Heparin 10,000 UNITS/ 10 ML VIAL ONE; +Iopamidol-370 76% 500 ML MDV (1 ML CHARGE) ONE
[2024-10-10] MEDS ORDERED: Famotidine/PF 20 mg/2ml Vial ONE (16:47)
[2024-10-10] MEDS ORDERED: methylPREDNISolone Sod Succ 40 MG VIAL ONE (16:47)
[2024-10-10] MEDS ORDERED: diphenhydrAMINE 50 MG/ML VIAL ONE (16:47)
[2024-10-10 16:48] LABS: #Basophils Less than 0.03 10x3/uL (0.0-0.2); %Basophils 0.2 % (0.0-1.0); %Eosinophils 1.5 % (0.0-10.0); %Lymphocytes 7.8 % (21.0-51.0); %Monocytes 5.9 % (0.0-10.0); %Neutrophils 83.5 % (42.0-75.0); Hematocrit 32.3 % (36.0-47.0); Hemoglobin 9.8 g/dL (12.0-16.0); Mean Corpuscular HGB CONC 30.3 g/dL (32.0-36.0); Mean Corpuscular Hemoglobin 31.3 pg (27.0-31.0); Mean Corpuscular Volume 103.2 fL (78.0-98.0); Platelet Count 163 10x3/uL (130-400); RBC Distribution Width 16.3 % (11.5-14.5); Red Blood Cell (RBC) Count 3.13 mill/uL (4.20-5.40)
[2024-10-10 17:05] LABS: ALT (SGPT) Less than 7 U/L (Less than 34); AST (SGOT) 16 U/L (11-34); Albumin 3.9 g/dL (3.1-4.5); Alkaline Phosphatase 242 U/L (40-110); Anion Gap 15 mmol/L (10-20); BUN (Urea Nitrogen) 12 mg/dL (9.8-20.1); Bilirubin, Total 0.4 mg/dL (0.3-1.2); Calc. Creatinine Clearance 0 mL/min (70-130); Calcium 8.9 mg/dL (7.8-10.44); Carbon Dioxide 28 mmol/L (23-31); Chloride 98 mmol/L (98-107); Estimated GFR 17; Globulin 3.9 g/dL (2.4-3.5); Glucose 102 mg/dL (80-115); Potassium 3.1 mmol/L (3.5-5.1); Protein, Total 7.8 g/dL (5.8-8.1); Sodium 138 mmol/L (136-145)
[2024-10-10 17:08] LABS: Troponin I 0.051 ng/mL (< 0.028)
== END 2024-10-10 18:48 ==
LOC: ERS 16:06
DX: R07.89 Other chest pain (principal); E11.42 Type 2 diabetes mellitus with diabetic polyneuropathy; I12.0 Hypertensive chronic kidney disease with stage 5 chronic kidney disease or end stage renal disease; E11.22 Type 2 diabetes mellitus with diabetic chronic kidney disease; N18.6 End stage renal disease; N17.9 Acute kidney failure, unspecified; F17.210 Nicotine dependence, cigarettes, uncomplicated; Z99.2 Dependence on renal dialysis
CPT/HCPCS: 71045; 71275; 80053; 83880; 84484; 85025; 93005; 94760; J1200; J2919; J3490; 96374; 96375; Q9967

== ENCOUNTER 2025-08-13 19:01 | Observation (INO) | payer OTHER ==
[~2025-08-13 19:01] MED LIST changes: +Iopamidol 370 76% 100 ML VIAL ONE; -Iopamidol-370 76% 500 ML MDV (1 ML CHARGE) ONE
[2025-08-13] MEDS ORDERED: Magnesium 2 GM/50 ML BAG (IN WATER) ONE (20:33)
[2025-08-13] MEDS ORDERED: Albuterol 2.5 MG (3 mL) NEB ONE (20:38)
[2025-08-13 20:52] LABS: Actual Bicarbonate (HCO3v) 24.2 mEq/L (22-28); Analyzer IN Cardio ER; Base Excess -2.6 mEq/L (-2.0 to +3.0); Calcium, Ionized (venous) 0.96 mmol/L (1.16-1.32); Chloride (VBG) 97 mmol/L (98-106); Hematocrit-VBG 37 % (36.0-47.0); Hemoglobin (Hb) 12.7 g/dL (11.7-16.0); Sodium 132 mmol/L (133-146)
[2025-08-13 20:54] LABS: Potassium (VBG) 7.91 mmol/L (3.70-5.30)
[2025-08-13 20:57] LABS: #Basophils 0.05 10x3/uL (0.0-0.2); #Eosinophils 0.13 10x3/uL (0.0-0.7); #Monocytes 0.58 10x3/uL (0.11-0.59); #Neutrophils 5.87 10x3/uL (1.40-6.50); %Basophils 0.7 % (0.0-1.0); %Eosinophils 1.7 % (0.0-10.0); %Lymphocytes 12.5 % (21.0-51.0); %Monocytes 7.6 % (0.0-10.0); %Neutrophils 76.3 % (42.0-75.0); Hematocrit 36.0 % (36.0-47.0); Hemoglobin 11.5 g/dL (12.0-16.0); Mean Corpuscular Hemoglobin 32.7 pg (27.0-31.0); Mean Corpuscular Volume 102.3 fL (78.0-98.0); Platelet Count 239 10x3/uL (130-400); Red Blood Cell (RBC) Count 3.52 mill/uL (4.20-5.40); White Blood Cell (WBC) Count 7.68 10x3/uL (4.8-10.8)
[2025-08-13 22:21] LABS: ALT (SGPT) 9 U/L (Less than 34); AST (SGOT) 33 U/L (11-34); Albumin 3.2 g/dL (3.1-4.5); Alkaline Phosphatase 239 U/L (40-110); Anion Gap 19 mmol/L (10-20); BUN (Urea Nitrogen) 41 mg/dL (9.8-20.1); Bilirubin, Total 0.7 mg/dL (0.3-1.2); Calc. Creatinine Clearance 0 mL/min (70-130); Calcium 8.7 mg/dL (7.8-10.44); Carbon Dioxide 22 mmol/L (23-31); Chloride 96 mmol/L (98-107); Globulin 3.5 g/dL (2.4-3.5); Glucose 147 mg/dL (80-115); Lipase 26 U/L (8-78); Potassium 4.6 mmol/L (3.5-5.1); Sodium 132 mmol/L (136-145)
[2025-08-13] MEDS ORDERED: cefTRIAXone (ROCEPHIN) 1 GM VIAL ONE (22:59)
[2025-08-13] MEDS ORDERED: Dextrose 50% Abboject 50 ML SYRINGE SLOW IVP PRN (23:51)
[2025-08-13] MEDS ORDERED: Glucagon 1 MG/ML KIT IM PRN (23:51)
[2025-08-13] MEDS ORDERED: Calcium Carbonate 500 MG ChewTAB PO PRN (23:54)
[2025-08-13] MEDS ORDERED: Acetaminophen 325 MG TAB PO PRN (23:54)
[2025-08-14] MEDS ORDERED: Melatonin 3 MG TAB PO PRN (00:11)
[2025-08-14 01:45] VITALS: BMI 39.6
[2025-08-14] MEDS: EPOETIN ALFA-EPBX (ESRD) 10,000 UNITS/ML VIAL SC SCH (02:40)
[2025-08-14 06:01] LABS: ALT (SGPT) 11 U/L (Less than 34); AST (SGOT) 40 U/L (11-34); Albumin 3.4 g/dL (3.1-4.5); Alkaline Phosphatase 252 U/L (40-110); Anion Gap 20 mmol/L (10-20); BUN (Urea Nitrogen) 46 mg/dL (9.8-20.1); Bilirubin, Total 0.6 mg/dL (0.3-1.2); Calc. Creatinine Clearance 12 mL/min (70-130); Calcium 8.8 mg/dL (7.8-10.44); Carbon Dioxide 25 mmol/L (23-31); Chloride 96 mmol/L (98-107); Globulin 3.7 g/dL (2.4-3.5); Glucose 168 mg/dL (80-115); Potassium 5.4 mmol/L (3.5-5.1); Sodium 136 mmol/L (136-145)
[2025-08-14] MEDS: Mometasone 200 MCG/Formoterol 5 MCG 120 PUFF INHALER INH SCH (06:06)
[2025-08-14 06:40] LABS: Anisocytosis MODERATE=16-30 cells HPF (0-5); Macrocytosis SLIGHT = 6-15 cells HPF (0-5); Platelet Adequacy Comment Platelets Decreased; Polychromasia SLIGHT = 2-3 cells HPF (0-2)
[2025-08-14 06:50] LABS: #Basophils 0.03 10x3/uL (0.0-0.2); #Eosinophils Less than 0.03 10x3/uL (0.0-0.7); #Monocytes 0.26 10x3/uL (0.11-0.59); #Neutrophils 7.99 10x3/uL (1.40-6.50); %Basophils 0.3 % (0.0-1.0); %Eosinophils 0.1 % (0.0-10.0); %Lymphocytes 4.3 % (21.0-51.0); %Monocytes 3.0 % (0.0-10.0); %Neutrophils 91.0 % (42.0-75.0); Hematocrit 38.7 % (36.0-47.0); Hemoglobin 11.7 g/dL (12.0-16.0); Mean Corpuscular Hemoglobin 32.1 pg (27.0-31.0); Mean Corpuscular Volume 106.3 fL (78.0-98.0); Platelet Count 107 10x3/uL (130-400); Red Blood Cell (RBC) Count 3.64 mill/uL (4.20-5.40); White Blood Cell (WBC) Count 8.78 10x3/uL (4.8-10.8)
[2025-08-14] MEDS ORDERED: Non-Formulary Item 1 EACH (Tiotropium Bromide 4 GM Inhaler) INH SCH (09:00)
[2025-08-14] MEDS ORDERED: Albumin 25% 25 GM (100 mL) BOT IVPB PRN (13:05)
[2025-08-14] MEDS: Albumin 25% 25 GM (100 mL) BOT IVPB SCH (13:21)
[2025-08-14] MEDS: predniSONE 20 MG TAB PO SCH (17:14)
[2025-08-14] MEDS: BuPROPion XL 150 MG ER.TAB PO SCH (17:15)
[2025-08-14] MEDS: Ergocalciferol 1.25 MG(50,000 UNITS) CAP PO SCH (17:15)
[2025-08-14] MEDS: Azithromycin 250 MG TAB PO SCH (17:15)
[2025-08-14] MEDS: Carvedilol 6.25 MG TAB PO SCH (17:15)
[2025-08-14] MEDS: Apixaban 5 MG TAB PO SCH (17:15)
[2025-08-14] MEDS: Pantoprazole 40 MG DR.TAB PO SCH (17:16)
[2025-08-14] MEDS: Phenytoin Extended Release 100 MG CAP PO SCH (17:16)
[2025-08-15 05:43] LABS: #Basophils Less than 0.03 10x3/uL (0.0-0.2); #Eosinophils Less than 0.03 10x3/uL (0.0-0.7); #Monocytes 0.26 10x3/uL (0.11-0.59); #Neutrophils 5.91 10x3/uL (1.40-6.50); %Basophils 0.3 % (0.0-1.0); %Eosinophils 0.3 % (0.0-10.0); %Lymphocytes 4.3 % (21.0-51.0); %Monocytes 4.0 % (0.0-10.0); %Neutrophils 90.5 % (42.0-75.0); Hematocrit 35.0 % (36.0-47.0); Hemoglobin 10.3 g/dL (12.0-16.0); Mean Corpuscular Hemoglobin 32.2 pg (27.0-31.0); Mean Corpuscular Volume 109.4 fL (78.0-98.0); Platelet Count 87 10x3/uL (130-400); Red Blood Cell (RBC) Count 3.20 mill/uL (4.20-5.40); White Blood Cell (WBC) Count 6.53 10x3/uL (4.8-10.8)
[2025-08-15 06:04] LABS: ALT (SGPT) 15 U/L (Less than 34); AST (SGOT) 35 U/L (11-34); Albumin 3.7 g/dL (3.1-4.5); Alkaline Phosphatase 205 U/L (40-110); Anion Gap 18 mmol/L (10-20); BUN (Urea Nitrogen) 33 mg/dL (9.8-20.1); Bilirubin, Total 0.5 mg/dL (0.3-1.2); Calc. Creatinine Clearance 16 mL/min (70-130); Calcium 8.8 mg/dL (7.8-10.44); Carbon Dioxide 26 mmol/L (23-31); Chloride 100 mmol/L (98-107); Globulin 3.1 g/dL (2.4-3.5); Glucose 209 mg/dL (80-115); Potassium 4.8 mmol/L (3.5-5.1); Sodium 139 mmol/L (136-145)
[2025-08-15 11:56] VITALS: BP 120/57; TEMP 98.6
[2025-08-16] MEDS ORDERED: Gabapentin 300 MG CAP PO SCH (17:00)
== END 2025-08-15 14:15 | disposition home or self-care (01) ==
LOC: ERS 19:01 → MERGE 23:51 → 2NO 23:51
PROVIDERS: ADMIT Student in an Organized Health Care Education/Training Program; ATTEND Student in an Organized Health Care Education/Training Program
DX: J96.01 Acute respiratory failure with hypoxia (principal); J44.1 Chronic obstructive pulmonary disease with (acute) exacerbation; R91.1 Solitary pulmonary nodule; I48.92 Unspecified atrial flutter; I95.9 Hypotension, unspecified; I12.0 Hypertensive chronic kidney disease with stage 5 chronic kidney disease or end stage renal disease; N18.6 End stage renal disease; E11.22 Type 2 diabetes mellitus with diabetic chronic kidney disease; E66.2 Morbid (severe) obesity with alveolar hypoventilation; E87.1 Hypo-osmolality and hyponatremia; E78.5 Hyperlipidemia, unspecified; E11.40 Type 2 diabetes mellitus with diabetic neuropathy, unspecified; D63.1 Anemia in chronic kidney disease; D53.9 Nutritional anemia, unspecified; F17.210 Nicotine dependence, cigarettes, uncomplicated; E87.5 Hyperkalemia; K72.90 Hepatic failure, unspecified without coma; R18.8 Other ascites; Z99.2 Dependence on renal dialysis; Z98.41 Cataract extraction status, right eye; Z98.42 Cataract extraction status, left eye; Z91.0110 Allergy to milk products, unspecified; Z91.013 Allergy to seafood; Z91.010 Allergy to peanuts; Z91.041 Radiographic dye allergy status; Z91.018 Allergy to other foods; Z88.5 Allergy status to narcotic agent; Z88.8 Allergy status to other drugs, medicaments and biological substances; Z79.01 Long term (current) use of anticoagulants; Z79.51 Long term (current) use of inhaled steroids; Z79.899 Other long term (current) drug therapy
CPT/HCPCS: 71045; 71275; 74177; 76705; 80053 ×3; 82140; 82805; 82962 ×2; 83605; 83690; 83880; 85025 ×3; 87040; 87428; 93005; 94640 ×5; 96365; 96367; 96372; 96375; 99285; G0378 ×3; J0696; J1815; J2919; J3010; J3475; P9047; Q5105; Q9967; 36415; 36416; 90935; G0257; J7512; J7611